=== PATIENT | male | born 1950 | race Caucasian/White ===

== ENCOUNTER → 2016-08-04 | Outpatient (CLI) | payer MEDICARE, OTHER ==
[2016-08-04 11:33] LABS: ALT 40 U/L (21-72); AST 20 U/L (17-59); Alkaline Phosphatase 86 U/L (38-126); Anion Gap 11 mmol/L; Blood Urea Nitrogen 15 mg/dL (9-20); Calcium 10.3 mg/dL (8.4-10.2); Carbon Dioxide 32 mmol/L (22-30); Chloride 92 mmol/L (98-107); Cholesterol 157 mg/dL (<200); Glucose 313 mg/dL (74-99); HDL Cholesterol 39 mg/dL (40-60); Non-African American GFR(MDRD) >60 (>60 ml/min/1.73 sqM); Potassium 4.5 mmol/L (3.5-5.1); Sodium 135 mmol/L (137-145); Total Bilirubin 1.1 mg/dL (0.2-1.3); Total Protein 7.4 g/dL (6.3-8.2); Triglycerides 259 mg/dL (<150)
[2016-08-04 12:17] LABS: Hemoglobin A1C 10.1 % (4.2-6.1)
== END | disposition home or self-care (01) ==
LOC: LABWHC1 10:49
PROVIDERS: ATTEND Internal Medicine Endocrinology, Diabetes & Metabolism
DX: E11.65 Type 2 diabetes mellitus with hyperglycemia (principal)
CPT/HCPCS: 36415; 80053; 80061; 82043; 83036

== ENCOUNTER → 2016-11-23 | Outpatient (CLI) | payer MEDICARE, OTHER ==
[2016-11-23 18:34] LABS: Blood Urea Nitrogen 16 mg/dL (9-20); Non-African American GFR(MDRD) 52 (>60 ml/min/1.73 sqM)
--- NOTE | 2016-11-24 07:51 | CT ---
EXAMINATION TYPE: CT abdomen pelvis w con DATE OF EXAM: 11/23/2016 COMPARISON: 06/29/2014 INDICATION: Vomiting abdominal pain nausea DLP: 1034.67 mGycm, initial scan. 572.71 on delayed images. Automated exposure control for dose reduc tion was used. CONTRAST: 80 mL of Visipaque 320. Study performed TECHNIQUE: Axial images were obtained from above the diaphragm to the pubic rami in the axial plane a t 5 mm thick sections. Reconstructed images are reviewed on the computer in the coronal plane. FINDINGS: Limited CT sections are obtained the lung bases. The lung bases are clear. CT ABDOMEN: Liver: Liver is mildly diminished density in relation to the spleen compatible with mild fatty infilt ration liver. Small cyst may be present in the posterior right lobe liver. This is too small to relia nicole classify as a simple cyst. This is present previously. Spleen: Normal Pancreas: Normal Adrenal glands: The adrenal glands are normal. Gallbladder: Surgical clips are present from prior cholecystectomy. Kidneys: No masses are evident. No hydronephrosis is present. No cysts are present. Delayed images were obtained through the kidneys, which remain unremarkable. Aorta: Vascular calcification is within the aorta. Inferior vena cava: Normal. CT PELVIS: Loops of bowel within the abdomen and pelvis are normal. There are loops of bowel which are incom pletely distended or lack oral contrast limiting their evaluation. Scattered diverticuli within the s igmoid colon. Appendix: The appendix appears surgically absent. Urinary bladder: Normal. Genitourinary structures: Prostate is prominent. Osseous structures: No suspicious lytic or sclerotic lesions. Facet changes are within the lower lumb ar spine. IMPRESSIONS: 1. Mild fatty infiltration liver. 2. Diverticulosis without acute diverticulitis.
== END | disposition home or self-care (01) ==
LOC: RADCTMAIN 17:52
PROVIDERS: ATTEND Family Medicine
DX: K57.30 Diverticulosis of large intestine without perforation or abscess without bleeding (principal); K76.0 Fatty (change of) liver, not elsewhere classified; R10.13 Epigastric pain
CPT/HCPCS: 82565; 84520; 74177; 36415; Q9967

== ENCOUNTER 2017-03-08 12:30 | Emergency (ER) | payer MEDICARE, OTHER ==
[2017-03-08 12:45] VITALS: RESP 18
[2017-03-08 13:12] LABS: Glucose,Whole Blood 386 mg/dL (75-99)
[2017-03-08] MEDS ORDERED: ASPIRIN 81 MG PO STA (13:51)
[2017-03-08] MEDS ORDERED: NITROGLYCERIN SL TABS 0.4 MG TAB SUBLINGUAL STA (13:51)
[2017-03-08 14:23] LABS: Basophils # (A) 0.1 k/uL (0-0.2); Basophils % (A) 2 %; CH 31.1; CHCM 35.2; Eosinophils # (A) 0.2 k/uL (0-0.7); Eosinophils % (A) 4 %; HCT 51.3 % (39.0-53.0); HDW 3.16; HGB 17.3 gm/dL (13.0-17.5); Luc # (Auto) 0.14; Luc % (Auto) 3; Lymphocytes % (A) 21 %; MCH 30.1 pg (25.0-35.0); MCHC 33.8 g/dL (31.0-37.0); MCV 89.1 fL (80.0-100.0); Mean Platelet Volume 7.9; Monocytes # (A) 0.3 k/uL (0-1.0); Monocytes % (A) 7 %; Neutrophils % (A) 63 %; RBC 5.76 m/uL (4.30-5.90); WBC 4.8 k/uL (3.8-10.6); WBC (Perox) 4.46
[2017-03-08 14:32] LABS: ALT 46 U/L (21-72); AST 34 U/L (17-59); Alkaline Phosphatase 93 U/L (38-126); Amylase 37 U/L (30-110); Anion Gap 12 mmol/L; Blood Urea Nitrogen 24 mg/dL (9-20); Calcium 10.4 mg/dL (8.4-10.2); Carbon Dioxide 26 mmol/L (22-30); Chloride 98 mmol/L (98-107); Glucose 283 mg/dL (74-99); Magnesium 2.1 mg/dL (1.6-2.3); Non-African American GFR(MDRD) 60 (>60 ml/min/1.73 sqM); Potassium 4.1 mmol/L (3.5-5.1); Sodium 136 mmol/L (137-145); Total Bilirubin 0.5 mg/dL (0.2-1.3); Total Protein 7.4 g/dL (6.3-8.2)
[2017-03-08 14:37] LABS: INR 1.1 (<1.2); Partial Thromboplastin Time 24.3 sec (22.0-30.0); Prothrombin Time 10.8 sec (9.0-12.0)
--- NOTE | 2017-03-08 14:38 | ED ---
General Adult HPI <Dillon Ferreira - Last Filed: 03/08/17 15:30> - General Source: patient, RN notes reviewed Mode of arrival: ambulatory Limitations: no limitations <Anton Engle - Last Filed: 03/08/17 15:34> - General Chief complaint: Shortness of Breath Stated complaint: Chest Pain, SOB, poss reaction from medication Time Seen by Provider: 03/08/17 13:39 - History of Present Illness Initial comments: Patient 66-year-old male who presents emergency room today with multiple plans. He does with that he's been having some discomfort in his chest on and off over the last week. He does admit to some exertional dyspnea yesterday when he was on walking through the [place]. States had some soreness to his legs today and some pain in his arms bilaterally. He does admit that this pain since coming go. He also admits that his blood sugars have been elevated. Patient does have a history of cardiac disease with 4 stents placed in the past. Currently seeing a gas plant technician out of [facility]. is scheduled for a stress test in 4 days. Patient states that he was concerned about all the symptoms came here to the emergency room today. Patient denies any pain or shortness breath at this time. Patient denies any recent fever, chills, back pain, abdominal pain, nausea or vomiting, numbness or tingling, dysuria or hematuria, constipation or diarrhea, headaches or visual changes, or any other complaints. (Anton Engle) - Related Data Home Medications Medication Instructions Recorded Confirmed ALPRAZolam [ALPRAZolam XR] 2 - 2.25 mg PO DAILY PRN 06/29/14 03/08/17 Aspirin EC [Ecotrin] 81 mg PO DAILY 06/29/14 03/08/17 Ezetimibe [Zetia] 10 mg PO DAILY 06/29/14 03/08/17 Fenofibric Acid (Choline) 135 mg PO DAILY 06/29/14 03/08/17 [Fenofibric Acid] Loratadine [Claritin] 10 mg PO DAILY 06/29/14 03/08/17 Pantoprazole Sodium 40 mg PO DAILY 06/29/14 03/08/17 valACYclovir HCL [Valtrex] 500 mg PO DAILY 06/29/14 03/08/17 HYDROcodone/APAP 10-325MG [[place] 1 tab PO Q6H PRN 02/08/15 03/08/17 10] Cholecalciferol [Vitamin D3] 1,000 unit PO DAILY 03/08/17 03/08/17 Doxazosin Mesylate [Cardura] 4 mg PO DAILY 03/08/17 03/08/17 Dulaglutide [Trulicity] 1.5 mg SQ Q7D 03/08/17 03/08/17 Empagliflozin [Jardiance] 25 mg PO DAILY 03/08/17 03/08/17 Pioglitazone [Actos] 15 mg PO DAILY 03/08/17 03/08/17 Pravastatin Sodium [Pravachol] 80 mg PO HS 03/08/17 03/08/17 Sildenafil Citrate [Viagra] 100 mg PO ONCE PRN 03/08/17 03/08/17 aMILoride-HCTZ 5-50 mg [Moduretic 1 tab PO DAILY 03/08/17 03/08/17 5-50] Allergies Allergy/AdvReac Type Severity Reaction Status Date / Time atorvastatin calcium Allergy Rash/Hives Verified 03/08/17 14:25 [From Lipitor] furosemide [From Lasix] Allergy Rash/Hives Verified 03/08/17 14:25 ibuprofen Allergy Rash/Hives Verified 03/08/17 14:25 metoprolol succinate Allergy Unknown Verified 03/08/17 14:25 [From Toprol XL] niacin Allergy Unknown Verified 03/08/17 14:25 Sulfa (Sulfonamide Allergy Rash/Hives Verified 03/08/17 14:25 Antibiotics) glyburide AdvReac Nausea & Verified 03/08/17 14:25 Vomiting Review of Systems ROS Other: All systems not noted in ROS Statement are negative. <Dillon Ferreira - Last Filed: 03/08/17 15:30> ROS Other: All systems not noted in ROS Statement are negative. <Anton Engle - Last Filed: 03/08/17 15:34> ROS Statement: Those systems with pertinent positive or pertinent negative responses have been documented in the HPI. Past Medical History Past Medical History: CVA/TIA, Diabetes Mellitus, Hyperlipidemia, Hypertension, Myocardial Infarction ([place]) History of Any Multi-Drug Resistant Organisms: None Reported Past Surgical History: Appendectomy, Cholecystectomy, Heart Catheterization With Stent, Orthopedic Surgery Additional Past Surgical History / Comment(s): finger, paritial right knee Past Psychological History: No Psychological Hx Reported Smoking Status: Former smoker Past Alcohol Use History: None Reported Past Drug Use History: None Reported <Yosvany Engleony - Last Filed: 03/08/17 15:34> General Exam <Dillon Ferreira - Last Filed: 03/08/17 15:30> Limitations: no limitations <Anton Engle - Last Filed: 03/08/17 15:34> - General Exam Comments Initial Comments: General: The patient is awake and alert, in no distress, and does not appear acutely ill. Eye: Pupils are equal, round and reactive to light, extra-ocular movements are intact. No nystagmus. There is normal conjunctiva bilaterally. No signs of icterus. Ears, nose, mouth and throat: There are moist mucous membranes and no oral lesions. Neck: The neck is supple, there is no tenderness or JVD. Cardiovascular: There is a regular rate and rhythm. No murmur, rub or gallop is appreciated. Respiratory: Lungs are clear to auscultation, respirations are non-labored, breath sounds are equal. No wheezes, stridor, rales, or rhonchi. Gastrointestinal: Soft, non-distended, non-tender abdomen without masses or organomegaly noted. There is no rebound or guarding present. No CVA tenderness. Bowel sounds are unremarkable. Musculoskeletal: Normal ROM, no tenderness. Strength 5/5. Sensation intact. Pulses equal bilaterally 2+. Neurological: A&O x 3. CN II-XII intact, There are no obvious motor or sensory deficits. Coordination appears grossly intact. Speech is normal. Skin: Skin is warm and dry and no rashes or lesions are noted. Psychiatric: Cooperative, appropriate mood & affect, normal judgment. (Anton Engle) Course <Dillon Ferreira - Last Filed: 03/08/17 15:30> <Anton Engle - Last Filed: 03/08/17 15:34> Vital Signs 03/08/17 03/08/17 12:41 14:13 Temperature 97.8 F Pulse Rate 102 H 92 Respiratory 18 18 Rate Blood Pressure 158/83 140/77 O2 Sat by Pulse 94 L 95 Oximetry - Reevaluation(s) Reevaluation #1: 03/08/17 15:30 PA supervision: I did personally do a [id number] evaluation of this patient and did discuss the findings with him and his family members or present. Patient does have evidence of unstable angina. Patient will be admitted and has agreed to admission for evaluation. Patient currently is asymptomatic her lungs are clear. Patient will be admitted (Dillon Ferreira) EKG Findings - EKG Comments: EKG Findings:: EKG performed at 1301: Shows normal sinus rhythm with left axis deviation at 83 beats per minute. DE interval 168. QRS 106. QT/QTC 368/432. No acute ST changes. <Anton Engle - Last Filed: 03/08/17 15:34> Medical Decision Making - Lab Data Result diagrams: 03/08/17 14:02 03/08/17 14:02 <Dillon Ferreira - Last Filed: 03/08/17 15:30> - Lab Data Result diagrams: 03/08/17 14:02 03/08/17 14:02 <Anton Engle - Last Filed: 03/08/17 15:34> - Lab Data Lab Results 03/08/17 03/08/17 03/08/17 Range/Units 13:02 14:02 14:02 WBC (3.8-10.6) k/uL RBC (4.30-5.90) m/uL Hgb (13.0-17.5) gm/dL Hct (39.0-53.0) % MCV (80.0-100.0) fL MCH (25.0-35.0) pg MCHC (31.0-37.0) g/dL RDW (11.5-15.5) % Plt Count (150-450) k/uL Neutrophils % % Lymphocytes % % Monocytes % % Eosinophils % % Basophils % % Neutrophils # (1.3-7.7) k/uL Lymphocytes # (1.0-4.8) k/uL Monocytes # (0-1.0) k/uL Eosinophils # (0-0.7) k/uL Basophils # (0-0.2) k/uL PT (9.0-12.0) sec INR (<1.2) APTT (22.0-30.0) sec Sodium 136 L (137-145) mmol/L Potassium 4.1 (3.5-5.1) mmol/L Chloride 98 (98-107) mmol/L Carbon Dioxide 26 (22-30) mmol/L Anion Gap 12 mmol/L BUN 24 H (9-20) mg/dL Creatinine 1.22 (0.66-1.25) mg/dL Est GFR (MDRD) Af Amer >60 (>60 ml/min/1.73 sqM) Est GFR (MDRD) Non-Af 60 (>60 ml/min/1.73 sqM) Glucose 283 H (74-99) mg/dL POC Glucose (mg/dL) 386 H (75-99) mg/dL POC Glu Program Strategist ID [place] Calcium 10.4 H (8.4-10.2) mg/dL Magnesium 2.1 (1.6-2.3) mg/dL Total Bilirubin 0.5 (0.2-1.3) mg/dL AST 34 (17-59) U/L ALT 46 (21-72) U/L Alkaline Phosphatase 93 (38-126) U/L Total Creatine Kinase 163 (55-170) U/L CK-MB (CK-2) 3.9 H* (0.0-2.4) ng/mL CK-MB (CK-2) Rel Index 2.4 Troponin I 0.013 (0.000-0.034) ng/mL Total Protein 7.4 (6.3-8.2) g/dL Albumin 4.7 (3.5-5.0) g/dL Amylase 37 (30-110) U/L Lipase 244 (23-300) U/L Acetone, Qual (Negative) 03/08/17 03/08/17 03/08/17 Range/Units 14:02 14:02 14:02 WBC 4.8 (3.8-10.6) k/uL RBC 5.76 (4.30-5.90) m/uL Hgb 17.3 (13.0-17.5) gm/dL Hct 51.3 (39.0-53.0) % MCV 89.1 (80.0-100.0) fL MCH 30.1 (25.0-35.0) pg MCHC 33.8 (31.0-37.0) g/dL RDW 13.0 (11.5-15.5) % Plt Count 180 (150-450) k/uL Neutrophils % 63 % Lymphocytes % 21 % Monocytes % 7 % Eosinophils % 4 % Basophils % 2 % Neutrophils # 3.0 (1.3-7.7) k/uL Lymphocytes # 1.0 (1.0-4.8) k/uL Monocytes # 0.3 (0-1.0) k/uL Eosinophils # 0.2 (0-0.7) k/uL Basophils # 0.1 (0-0.2) k/uL PT 10.8 (9.0-12.0) sec INR 1.1 (<1.2) APTT 24.3 (22.0-30.0) sec Sodium (137-145) mmol/L Potassium (3.5-5.1) mmol/L Chloride (98-107) mmol/L Carbon Dioxide (22-30) mmol/L Anion Gap mmol/L BUN (9-20) mg/dL Creatinine (0.66-1.25) mg/dL Est GFR (MDRD) Af Amer (>60 ml/min/1.73 sqM) Est GFR (MDRD) Non-Af (>60 ml/min/1.73 sqM) Glucose (74-99) mg/dL POC Glucose (mg/dL) (75-99) mg/dL POC Glu Program Strategist ID Calcium (8.4-10.2) mg/dL Magnesium (1.6-2.3) mg/dL Total Bilirubin (0.2-1.3) mg/dL AST (17-59) U/L ALT (21-72) U/L Alkaline Phosphatase (38-126) U/L Total Creatine Kinase (55-170) U/L CK-MB (CK-2) (0.0-2.4) ng/mL CK-MB (CK-2) Rel Index Troponin I (0.000-0.034) ng/mL Total Protein (6.3-8.2) g/dL Albumin (3.5-5.0) g/dL Amylase (30-110) U/L Lipase (23-300) U/L Acetone, Qual Negative (Negative) Disposition <Dillon Ferreira - Last Filed: 03/08/17 15:30> Time of Disposition: 15:16 <Anton Engle - Last Filed: 03/08/17 15:34> Clinical Impression: Chest pain Disposition: ADMITTED IP TO THIS [facility] Condition: Stable Referrals: Adam Live III, MD [Primary Care Provider] - 1-2 days
--- NOTE | 2017-03-08 14:54 | XR ---
EXAMINATION TYPE: XR chest 2V DATE OF EXAM: 03/08/2017 COMPARISON: Prior chest x-ray 11/01/2015 and 02/24/2016 HISTORY: Chest pain TECHNIQUE: Frontal and lateral views of the chest are obtained. FINDINGS: There is no focal air space opacity, pleural effusion, or pneumothorax seen. There are ov erlying cardiac leads. Patient is rotated. Hyperinflation may be indicative of COPD. The cardiac silh ouette size is within normal limits. The osseous structures are intact. IMPRESSION: No acute cardiopulmonary process.
[2017-03-08 14:55] LABS: Troponin I 0.013 ng/mL (0.000-0.034)
[2017-03-08 14:58] LABS: Creatine Kinase MB 3.9 ng/mL (0.0-2.4)
[2017-03-08] MEDS ORDERED: HYDROcodone/APAP 10-325MG 1 EACH TAB PO PRN (15:27)
[2017-03-08] MEDS ORDERED: SODIUM CHLORIDE 0.9% 1,000 ML IV ONE (15:34)
[2017-03-08] MEDS ORDERED: HEPARIN SODIUM,PORCINE 5,000 UNIT/ML 1 ML VIAL IV ONE (15:34)
[2017-03-08] MEDS ORDERED: NITROGLYCERIN SL TABS 0.4 MG TAB SUBLINGUAL PRN (15:34)
[2017-03-08] MEDS ORDERED: HEPARIN SODIUM,PORCINE/D5W PMX 25,000 UNIT in DEXTROSE/WATER 1 500ML.BAG IV SCH (15:45)
--- NOTE | 2017-03-08 15:57 | P.HPIM ---
History of Present Illness Patient is a very pleasant 61-year-old man came in with complains of bandlike sharp pain around the upper abdominal area patient has thoracic and lumbar back issues and patient is even being evaluated for back surgery. Patient's pain was about 8 x 10 in severity started when he was walking in the cold weather improved with in few minutes after he vomited himself up, denied any lightheadedness denied any shortness of breath his pain is nonradiating no associated fever chills since pain is nonpruritic in nature patient has history of coronary artery disease had stents in 2001 and 2003 EKG showed some nonspecific ST-T wave changes troponin is negative patient is admitted for overnight evaluation and patient is supposed to get a stress test and cardiology will evaluated the patient and may end up getting a stress test. Tomorrow. Patient is scheduled for outpatient stress test on Sunday. Patient denied any cough runny nose patient's pain is not associated with food Review of Systems REVIEW OF SYSTEMS: CONSTITUTIONAL: No fever, no malaise, no fatigue. HEENT: No recent visual problems or hearing problems. Denied any sore throat. CARDIOVASCULAR: No chest pain, orthopnea, PND, no palpitations, no syncope. PULMONARY: No shortness of breath, no cough, no hemoptysis. GASTROINTESTINAL: No diarrhea, no nausea, no vomiting, no abdominal pain. Normoactive bowel sounds. NEUROLOGICAL: No headaches, no weakness, no numbness. HEMATOLOGICAL: Denies any bleeding or petechiae. GENITOURINARY: Denies any burning micturition, frequency, or urgency. MUSCULOSKELETAL/RHEUMATOLOGICAL: As mentioned in HPI ENDOCRINE: Denies any polyuria or polydipsia. The rest of the 14-point review of systems is negative. Past Medical History Past Medical History: CVA/TIA, Diabetes Mellitus, Hyperlipidemia, Hypertension, Myocardial Infarction ([place]) History of Any Multi-Drug Resistant Organisms: None Reported Past Surgical History: Appendectomy, Cholecystectomy, Heart Catheterization With Stent, Orthopedic Surgery Additional Past Surgical History / Comment(s): finger, paritial right knee Past Psychological History: No Psychological Hx Reported Smoking Status: Former smoker Past Alcohol Use History: None Reported Past Drug Use History: None Reported Medications and Allergies Home Medications Medication Instructions Recorded Confirmed Type ALPRAZolam [ALPRAZolam XR] 2 - 2.25 mg PO DAILY PRN 06/29/14 03/08/17 History Aspirin EC [Ecotrin] 81 mg PO DAILY 06/29/14 03/08/17 History Ezetimibe [Zetia] 10 mg PO DAILY 06/29/14 03/08/17 History Fenofibric Acid (Choline) 135 mg PO DAILY 06/29/14 03/08/17 History [Fenofibric Acid] Loratadine [Claritin] 10 mg PO DAILY 06/29/14 03/08/17 History Pantoprazole Sodium 40 mg PO DAILY 06/29/14 03/08/17 History valACYclovir HCL [Valtrex] 500 mg PO DAILY 06/29/14 03/08/17 History HYDROcodone/APAP 10-325MG [[place] 1 tab PO Q6H PRN 02/08/15 03/08/17 History 10] Cholecalciferol [Vitamin D3] 1,000 unit PO DAILY 03/08/17 03/08/17 History Doxazosin Mesylate [Cardura] 4 mg PO DAILY 03/08/17 03/08/17 History Dulaglutide [Trulicity] 1.5 mg SQ Q7D 03/08/17 03/08/17 History Empagliflozin [Jardiance] 25 mg PO DAILY 03/08/17 03/08/17 History Pioglitazone [Actos] 15 mg PO DAILY 03/08/17 03/08/17 History Pravastatin Sodium [Pravachol] 80 mg PO HS 03/08/17 03/08/17 History Sildenafil Citrate [Viagra] 100 mg PO ONCE PRN 03/08/17 03/08/17 History aMILoride-HCTZ 5-50 mg [Moduretic 1 tab PO DAILY 03/08/17 03/08/17 History 5-50] Allergies Allergy/AdvReac Type Severity Reaction Status Date / Time atorvastatin calcium Allergy Rash/Hives Verified 03/08/17 14:25 [From Lipitor] furosemide [From Lasix] Allergy Rash/Hives Verified 03/08/17 14:25 ibuprofen Allergy Rash/Hives Verified 03/08/17 14:25 metoprolol succinate Allergy Unknown Verified 03/08/17 14:25 [From Toprol XL] niacin Allergy Unknown Verified 03/08/17 14:25 Sulfa (Sulfonamide Allergy Rash/Hives Verified 03/08/17 14:25 Antibiotics) glyburide AdvReac Nausea & Verified 03/08/17 14:25 Vomiting Physical Exam Vitals: Vital Signs Temp Pulse Resp BP Pulse Ox 03/08/17 14:13 92 18 140/77 95 03/08/17 12:41 97.8 F 102 H 18 158/83 94 L Intake and Output 03/08/17 03/08/17 03/08/17 06:59 14:59 22:59 Other: Weight 90.718 kg Patient Weight 03/09/17 06:59 Weight 90.718 kg #1 abdominal pain: [place] skeletal nature from thoracolumbar chronic back disease. Improved symptoms at this point of time. Patient is admitted to rule out acute coronary syndromes. #2 coronary artery disease #3 type 2 diabetes mellitus uncontrolled blood sugars patient is on 3 diabetic medications and the his primary care physician is in the process of titrating his medication because of which will continue same medications will not change any of these and will let PCP manage his diabetes #4 hypertension next and #5 hyperlipidemia #6 CVA TIA in the past next For above-mentioned chronic medical problems patient will be continued on appropriate home medications. Results CBC & Chem 7: 03/08/17 14:02 03/08/17 14:02 Labs: Abnormal Lab Results - Last 24 Hours (Table) 03/08/17 03/08/17 03/08/17 Range/Units 13:02 14:02 14:02 Sodium 136 L (137-145) mmol/L BUN 24 H (9-20) mg/dL Glucose 283 H (74-99) mg/dL POC Glucose (mg/dL) 386 H (75-99) mg/dL Calcium 10.4 H (8.4-10.2) mg/dL CK-MB (CK-2) 3.9 H* (0.0-2.4) ng/mL
--- NOTE | 2017-03-08 16:52 | P.DS ---
Providers Date of admission: 03/08/17 15:30 Attending physician: Jayashree Rodrigez Consults: 03/08/17 15:34 Consult Physician Stat Consulting Provider: [facility] Consult Reason/Comments: chest pain Do you want consulting provider notified?: Yes Primary care physician: Adam Loredo [facility] Course: Patient wanted to be discharged patient was still in ER had discussed with the ER physician mental health assistant. Since patient's pain is mostly related to his thoracic thoracolumbar back and musculoskeletal in nature, patient probably can be discharged rather leaving AMA from ER and can get the stress test as an outpatient on Sunday. Same thing was discussed with ER physician mental health assistant. Patient Condition at Discharge: Stable Plan - Discharge Summary New Discharge Prescriptions: No Action valACYclovir HCL [Valtrex] 500 mg PO DAILY Loratadine [Claritin] 10 mg PO DAILY ALPRAZolam [ALPRAZolam XR] 2 - 2.25 mg PO DAILY PRN PRN Reason: Anxiety Pantoprazole Sodium 40 mg PO DAILY Fenofibric Acid (Choline) [Fenofibric Acid] 135 mg PO DAILY Ezetimibe [Zetia] 10 mg PO DAILY Aspirin EC [Ecotrin] 81 mg PO DAILY HYDROcodone/APAP 10-325MG [[place] 10] 1 tab PO Q6H PRN PRN Reason: Pain aMILoride-HCTZ 5-50 mg [Moduretic 5-50] 1 tab PO DAILY Sildenafil Citrate [Viagra] 100 mg PO ONCE PRN PRN Reason: E.D. Pravastatin Sodium [Pravachol] 80 mg PO HS Pioglitazone [Actos] 15 mg PO DAILY Empagliflozin [Jardiance] 25 mg PO DAILY Dulaglutide [Trulicity] 1.5 mg SQ Q7D Doxazosin Mesylate [Cardura] 4 mg PO DAILY Cholecalciferol [Vitamin D3] 1,000 unit PO DAILY Discharge Medication List ALPRAZolam [ALPRAZolam XR] 2 - 2.25 mg PO DAILY PRN 06/29/14 [History] Aspirin EC [Ecotrin] 81 mg PO DAILY 06/29/14 [History] Ezetimibe [Zetia] 10 mg PO DAILY 06/29/14 [History] Fenofibric Acid (Choline) [Fenofibric Acid] 135 mg PO DAILY 06/29/14 [History] Loratadine [Claritin] 10 mg PO DAILY 06/29/14 [History] Pantoprazole Sodium 40 mg PO DAILY 06/29/14 [History] valACYclovir HCL [Valtrex] 500 mg PO DAILY 06/29/14 [History] HYDROcodone/APAP 10-325MG [[place] 10] 1 tab PO Q6H PRN 02/08/15 [History] Cholecalciferol [Vitamin D3] 1,000 unit PO DAILY 03/08/17 [History] Doxazosin Mesylate [Cardura] 4 mg PO DAILY 03/08/17 [History] Dulaglutide [Trulicity] 1.5 mg SQ Q7D 03/08/17 [History] Empagliflozin [Jardiance] 25 mg PO DAILY 03/08/17 [History] Pioglitazone [Actos] 15 mg PO DAILY 03/08/17 [History] Pravastatin Sodium [Pravachol] 80 mg PO HS 03/08/17 [History] Sildenafil Citrate [Viagra] 100 mg PO ONCE PRN 03/08/17 [History] aMILoride-HCTZ 5-50 mg [Moduretic 5-50] 1 tab PO DAILY 03/08/17 [History] Follow up Appointment(s)/Referral(s): Adam Live III, MD [Primary Care Provider] - 1-2 days
[2017-03-08 17:13] VITALS: BP 134/76; PULSE 91; TEMP 97.2
[2017-03-08] MEDS ORDERED: PRAVASTATIN SODIUM 80 MG TAB PO SCH (21:00)
[2017-03-09] MEDS ORDERED: PANTOPRAZOLE 40 MG TABLET PO SCH (07:30)
[2017-03-09] MEDS ORDERED: valACYclovir 500 MG TAB PO SCH (09:00)
[2017-03-09] MEDS ORDERED: JARDIANCE 25MG PO SCH (09:00)
[2017-03-09] MEDS ORDERED: PIOGLITAZONE 15 MG TAB PO SCH (09:00)
[2017-03-09] MEDS ORDERED: LORATADINE 10 MG TAB PO SCH (09:00)
[2017-03-09] MEDS ORDERED: EZETIMIBE 10 MG TAB PO SCH (09:00)
[2017-03-09] MEDS ORDERED: FENOFIBRATE 160 MG TAB PO SCH (09:00)
[2017-03-09] MEDS ORDERED: ASPIRIN 325 MG TAB PO SCH (09:00)
[2017-03-09] MEDS ORDERED: DOXAZOSIN 4 MG TAB PO SCH (09:00)
== END 2017-03-08 17:13 | disposition other institution (70) ==
LOC: EC 12:30 → UNDOADMOB 15:30 → 6SEL 15:30 → EC 17:13
DX: R07.9 Chest pain, unspecified (principal); E78.5 Hyperlipidemia, unspecified; I10 Essential (primary) hypertension; I25.2 Old myocardial infarction; E11.9 Type 2 diabetes mellitus without complications; Z86.73 Personal history of transient ischemic attack (TIA), and cerebral infarction without residual deficits; Z95.5 Presence of coronary angioplasty implant and graft; Z88.2 Allergy status to sulfonamides; Z88.6 Allergy status to analgesic agent; Z88.8 Allergy status to other drugs, medicaments and biological substances; Z79.82 Long term (current) use of aspirin; Z79.84 Long term (current) use of oral hypoglycemic drugs; Z79.899 Other long term (current) drug therapy; Z87.891 Personal history of nicotine dependence
CPT/HCPCS: 36415; 71020; 80053; 82009; 82150; 82550; 82553; 83690; 83735; 84484; 85025; 85610; 85730; 93005; 99285

== ENCOUNTER 2017-07-09 19:14 | Emergency (ER) | payer MEDICARE, OTHER ==
[2017-07-09 19:23] VITALS: TEMP 97.1
[2017-07-09 20:05] LABS: Anion Gap 11 mmol/L; Blood Urea Nitrogen 20 mg/dL (9-20); Calcium 9.9 mg/dL (8.4-10.2); Carbon Dioxide 27 mmol/L (22-30); Chloride 100 mmol/L (98-107); Glucose 167 mg/dL (74-99); Potassium 3.9 mmol/L (3.5-5.1); Sodium 138 mmol/L (137-145)
[2017-07-09 20:07] LABS: Basophils # (A) 0.1 k/uL (0-0.2); Basophils % (A) 2 %; Eosinophils # (A) 0.2 k/uL (0-0.7); Eosinophils % (A) 4 %; HCT 52.6 % (39.0-53.0); HGB 18.3 gm/dL (13.0-17.5); Lymphocytes # (A) 0.8 k/uL (1.0-4.8); Lymphocytes % (A) 24 %; MCHC 34.8 g/dL (31.0-37.0); MCV 86.3 fL (80.0-100.0); Mean Platelet Volume 7.9; Monocytes # (A) 0.4 k/uL (0-1.0); Monocytes % (A) 13 %; Neutrophils # (A) 1.8 k/uL (1.3-7.7); Neutrophils % (A) 53 %; Platelet Count 159 k/uL (150-450); RBC 6.09 m/uL (4.30-5.90); RDW 13.4 % (11.5-15.5); WBC 3.5 k/uL (3.8-10.6)
--- NOTE | 2017-07-09 20:26 | ED ---
General Adult HPI - General Chief complaint: Upper Respiratory Infection Stated complaint: Fever, Cough Time Seen by Provider: 07/09/17 20:13 Source: patient, family, RN notes reviewed Mode of arrival: ambulatory Limitations: no limitations - History of Present Illness Initial comments: Patient is a pleasant [age]-year-old male presenting to the emergency department with complaints of chest discomfort. Symptoms have been present for 5 days. Patient states he is unable to get in to his doctor for at least a week and they recommended he come to the emergency department if he felt necessary. Patient has had cough that is nonproductive. Patient has had yellow to brown sputum production. Patient has discomfort with cough only, otherwise no chest discomfort. Patient does have sinus congestion and sinus drainage. Patient feels that he did have a fever of 100 yesterday. No dyspnea. No leg pain or leg swelling. - Related Data Home Medications Medication Instructions Recorded Confirmed Aspirin EC [Ecotrin] 81 mg PO DAILY 06/29/14 07/09/17 Ezetimibe [Zetia] 10 mg PO DAILY 06/29/14 07/09/17 Fenofibric Acid (Choline) 135 mg PO DAILY 06/29/14 07/09/17 [Fenofibric Acid] Loratadine [Claritin] 10 mg PO DAILY 06/29/14 07/09/17 Pantoprazole Sodium 40 mg PO DAILY 06/29/14 07/09/17 valACYclovir HCL [Valtrex] 500 mg PO DAILY 06/29/14 07/09/17 HYDROcodone/APAP 10-325MG [[place] 1 tab PO QID PRN 02/08/15 07/09/17 10] Cholecalciferol [Vitamin D3] 1,000 unit PO DAILY 03/08/17 07/09/17 Doxazosin Mesylate [Cardura] 4 mg PO DAILY 03/08/17 07/09/17 Empagliflozin [Jardiance] 25 mg PO DAILY 03/08/17 07/09/17 Pioglitazone [Actos] 15 mg PO DAILY 03/08/17 07/09/17 Pravastatin Sodium [Pravachol] 80 mg PO HS 03/08/17 07/09/17 Sildenafil Citrate [Viagra] 100 mg PO ONCE PRN 03/08/17 07/09/17 aMILoride-HCTZ 5-50 mg [Moduretic 1 tab PO DAILY 03/08/17 07/09/17 5-50] Insulin Degludec [Tresiba 15 unit SQ DAILY 03/26/17 07/09/17 Flextouch U-100] ALPRAZolam [Xanax] 2.5 mg PO DAILY PRN 07/09/17 07/09/17 Dulaglutide [Trulicity] 0.75 mg SQ WE 07/09/17 07/09/17 Previous Rx's Medication Instructions Recorded Albuterol Inhaler [Ventolin Hfa 2 puff INHALATION Q4HR PRN #1 07/09/17 Inhaler] inhaler Azithromycin [Zithromax Z-pack] 250 mg PO DIRECTED #6 tab 07/09/17 Allergies Allergy/AdvReac Type Severity Reaction Status Date / Time atorvastatin calcium Allergy Rash/Hives Verified 07/09/17 20:27 [From Lipitor] furosemide [From Lasix] Allergy Rash/Hives Verified 07/09/17 20:27 heparin Allergy Unknown Verified 07/09/17 20:27 ibuprofen Allergy Rash/Hives Verified 07/09/17 20:27 metoprolol succinate Allergy Unknown Verified 07/09/17 20:27 [From Toprol XL] niacin Allergy Unknown Verified 07/09/17 20:27 Sulfa (Sulfonamide Allergy Rash/Hives Verified 07/09/17 20:27 Antibiotics) glyburide AdvReac Nausea & Verified 07/09/17 20:27 Vomiting Review of Systems ROS Statement: Those systems with pertinent positive or pertinent negative responses have been documented in the HPI. ROS Other: All systems not noted in ROS Statement are negative. Constitutional: Reports: fever Eyes: Denies: eye pain ENT: Denies: ear pain Respiratory: Reports: cough. Denies: dyspnea Cardiovascular: Denies: palpitations Endocrine: Denies: fatigue Gastrointestinal: Denies: abdominal pain Genitourinary: Denies: dysuria Musculoskeletal: Denies: back pain Skin: Denies: rash Neurological: Denies: weakness Past Medical History Past Medical History: CVA/TIA, Diabetes Mellitus, Hyperlipidemia, Hypertension, Myocardial Infarction ([place]) Additional Past Medical History / Comment(s): chronic left leg pain History of Any Multi-Drug Resistant Organisms: None Reported Past Surgical History: Appendectomy, Back Surgery, Cholecystectomy, Heart Catheterization With Stent, Orthopedic Surgery Additional Past Surgical History / Comment(s): finger, paritial right knee; 4 cardiac stents Past Psychological History: No Psychological Hx Reported Smoking Status: Former smoker Past Alcohol Use History: None Reported Past Drug Use History: None Reported General Exam Limitations: no limitations General appearance: alert, in no apparent distress Head exam: Present: atraumatic Eye exam: Present: normal appearance, PERRL ENT exam: Present: normal oropharynx, TM's normal bilaterally, other ( Tenderness over the frontal, ethmoid, and maxillary sinuses.) Neck exam: Present: normal inspection Respiratory exam: Present: normal lung sounds bilaterally Cardiovascular Exam: Present: regular rate, normal rhythm Expanded Peripheral pulses: 2+: Radial (R), Radial (L), Dorsalis Pedis (R), Dorsalis Pedis (L) GI/Abdominal exam: Present: soft. Absent: tenderness Extremities exam: Present: normal inspection. Absent: pedal edema, calf tenderness Neurological exam: Present: alert Psychiatric exam: Present: normal affect, normal mood Skin exam: Present: normal color Course Vital Signs 07/09/17 07/09/17 19:19 21:13 Temperature 97.1 F L Pulse Rate 86 84 Respiratory 17 18 Rate Blood Pressure 156/84 145/71 O2 Sat by Pulse 97 97 Oximetry EKG Findings - EKG Comments: EKG Findings:: Normal sinus rhythm 79. PA 170. QRS 104. QT 382. QTC 438. Left axis. Inferior Q waves. No acute ST change. Medical Decision Making - Medical Decision Making Patient reevaluated and resting comfortably in bed. Patient still denies any chest discomfort. Patient states he does not feel cardiac testing is necessary. Patient states he just saw his heart doctor and had stress test that was reported as normal less than 1 month ago. Patient does not have symptoms consistent with typical cardiac disease. Patient is happy to receive antibiotics and discharge. - Lab Data Result diagrams: 07/09/17 19:36 07/09/17 19:36 Lab Results 07/09/17 07/09/17 07/09/17 Range/Units 19:36 19:36 19:43 WBC 3.5 L (3.8-10.6) k/uL RBC 6.09 H (4.30-5.90) m/uL Hgb 18.3 H (13.0-17.5) gm/dL Hct 52.6 (39.0-53.0) % MCV 86.3 (80.0-100.0) fL MCH 30.0 (25.0-35.0) pg MCHC 34.8 (31.0-37.0) g/dL RDW 13.4 (11.5-15.5) % Plt Count 159 (150-450) k/uL Neutrophils % 53 % Lymphocytes % 24 % Monocytes % 13 % Eosinophils % 4 % Basophils % 2 % Neutrophils # 1.8 (1.3-7.7) k/uL Lymphocytes # 0.8 L (1.0-4.8) k/uL Monocytes # 0.4 (0-1.0) k/uL Eosinophils # 0.2 (0-0.7) k/uL Basophils # 0.1 (0-0.2) k/uL Sodium 138 (137-145) mmol/L Potassium 3.9 (3.5-5.1) mmol/L Chloride 100 (98-107) mmol/L Carbon Dioxide 27 (22-30) mmol/L Anion Gap 11 mmol/L BUN 20 (9-20) mg/dL Creatinine 0.99 (0.66-1.25) mg/dL Est GFR (CKD-EPI)AfAm >90 (>60 ml/min/1.73 sqM) Est GFR (CKD-EPI)NonAf 80 (>60 ml/min/1.73 sqM) Glucose 167 H (74-99) mg/dL Calcium 9.9 (8.4-10.2) mg/dL Influenza Type A RNA Not Detected (Not Detectd) Influenza Type B (PCR) Not Detected (Not Detectd) - Radiology Data Radiology results: image reviewed (Chest x-ray shows no acute process.) Disposition Clinical Impression: Sinusitis, Bronchitis Disposition: HOME SELF-CARE Condition: Stable Instructions: Sinusitis (ED), Acute Bronchitis (ED) Additional Instructions: Please follow-up with primary care physician in the next day or 2 for recheck. Return for difficulty in breathing, chest pain, fevers, worsening or changing symptoms or other concerns. Prescriptions: Albuterol Inhaler [Ventolin Hfa Inhaler] 2 puff INHALATION Q4HR PRN #1 inhaler PRN Reason: Dyspnea Azithromycin [Zithromax Z-pack] 250 mg PO DIRECTED #6 tab Referrals: Adam Live III, MD [Primary Care Provider] - 1-2 days Time of Disposition: 21:30
--- NOTE | 2017-07-09 20:57 | XR ---
EXAMINATION: XR chest 2V DATE AND TIME: 07/09/2017 8:46 PM ORDERING PROVIDER: Jonathan Luther DO CLINICAL INDICATION: cough TECHNIQUE: PA and lateral COMPARISON: 03/08/2017 DESCRIPTION: The overlying soft tissues are prominent. Given this factor, The lungs appear to be clear. The pleural spaces are negative. The cardiac silhouette is not enlarged, and the mediastinal and pleural silhouettes are unremarkable. The skeletal structures are intact without focal findings. IMPRESSION: NO DEFINITE ACUTE PROCESS.
[2017-07-09 21:14] VITALS: BP 145/71; PULSE 84; RESP 18
[2017-07-09] MEDS ORDERED: AZITHROMYCIN 500 MG TAB PO STA (21:28)
== END 2017-07-09 21:41 | disposition home or self-care (01) ==
LOC: EC 19:14
DX: J40 Bronchitis, not specified as acute or chronic (principal); J32.9 Chronic sinusitis, unspecified; E78.5 Hyperlipidemia, unspecified; I10 Essential (primary) hypertension; E11.9 Type 2 diabetes mellitus without complications; G89.29 Other chronic pain; I25.2 Old myocardial infarction; Z87.891 Personal history of nicotine dependence; Z79.4 Long term (current) use of insulin; Z79.82 Long term (current) use of aspirin; Z79.899 Other long term (current) drug therapy; Z88.2 Allergy status to sulfonamides; Z88.6 Allergy status to analgesic agent; Z88.8 Allergy status to other drugs, medicaments and biological substances; Z95.818 Presence of other cardiac implants and grafts
CPT/HCPCS: 36415; 71046; 80048; 85025; 87040; 87502; 93005; 99284

== ENCOUNTER → 2017-07-18 | Outpatient (CLI) | payer MEDICARE, OTHER ==
--- NOTE | 2017-07-18 15:43 | XR ---
EXAMINATION TYPE: XR chest 2V DATE OF EXAM: 07/18/2017 COMPARISON: 07/09/2017 HISTORY: 66-year-old male cough, acute bronchitis TECHNIQUE: Frontal and lateral views FINDINGS: Heart normal size. Aorta within normal limits. Mild interstitial prominence is unchanged. No consolid ation or pleural effusion. IMPRESSION: Chronic changes without acute cardiopulmonary process.
== END | disposition home or self-care (01) ==
LOC: RADXRMAIN 14:08
PROVIDERS: ATTEND Family Medicine
DX: J20.9 Acute bronchitis, unspecified (principal)
CPT/HCPCS: 71046

== ENCOUNTER → 2017-09-07 | Outpatient (CLI) | payer MEDICARE, OTHER ==
--- NOTE | 2017-09-07 13:51 | XR ---
EXAMINATION TYPE: XR shoulder complete RT DATE OF EXAM: 09/07/2017 CLINICAL HISTORY: Right shoulder pain after a fall 3 years ago TECHNIQUE: Three views of the right shoulder are obtained. COMPARISON: None. FINDINGS: There is no acute fracture/dislocation evident in the right shoulder. There is no widening of the acromio clavicular glenohumeral joint spaces. No suspicious osseous lesion. Moderate arthropa thy of the right acromioclavicular joint is seen as marginal osteophytes, capsular hypertrophy and sm all subchondral cysts. The visualized ribs are intact and unremarkable. IMPRESSION: There is no acute fracture or dislocation in the right shoulder. Moderate right acromioc lavicular arthropathy.
== END ==
LOC: RADXRMAIN 11:41
PROVIDERS: ATTEND Physical Medicine & Rehabilitation
DX: M19.011 Primary osteoarthritis, right shoulder (principal)

== ENCOUNTER → 2018-02-18 | Outpatient (CLI) | payer MEDICARE, OTHER ==
[2018-02-19 03:52] LABS: T4, Free (Free Thyroxine) 1.3 ng/dL (0.80-1.80)
== END | disposition home or self-care (01) ==
LOC: LABWHC1 16:27
PROVIDERS: ATTEND Internal Medicine Endocrinology, Diabetes & Metabolism
DX: E11.65 Type 2 diabetes mellitus with hyperglycemia (principal); E78.5 Hyperlipidemia, unspecified; E66.9 Obesity, unspecified; I10 Essential (primary) hypertension; Z71.3 Dietary counseling and surveillance
CPT/HCPCS: 36415; 84439; 84443

== ENCOUNTER 2018-03-28 21:55 | Emergency (ER) | payer MEDICARE, OTHER ==
[2018-03-28 22:01] VITALS: RESP 18
[2018-03-28 22:14] LABS: Glucose,Whole Blood 208 mg/dL (75-99)
[2018-03-28] MEDS ORDERED: SODIUM CHLORIDE 0.9% 500 ML 500 ML IV STA (22:50)
[2018-03-28 23:07] LABS: Basophils # (A) 0.1 k/uL (0-0.2); Basophils % (A) 1 %; Eosinophils # (A) 0.2 k/uL (0-0.7); Eosinophils % (A) 4 %; HCT 53.9 % (39.0-53.0); HGB 17.8 gm/dL (13.0-17.5); Lymphocytes # (A) 1.5 k/uL (1.0-4.8); Lymphocytes % (A) 24 %; MCH 30.1 pg (25.0-35.0); MCHC 33.1 g/dL (31.0-37.0); MCV 90.8 fL (80.0-100.0); Mean Platelet Volume 7.7; Monocytes # (A) 0.4 k/uL (0-1.0); Monocytes % (A) 6 %; Neutrophils # (A) 3.8 k/uL (1.3-7.7); Neutrophils % (A) 61 %; Platelet Count 176 k/uL (150-450); RBC 5.93 m/uL (4.30-5.90); RDW 13.2 % (11.5-15.5); WBC 6.3 k/uL (3.8-10.6)
[2018-03-28 23:12] LABS: Albumin 4.5 g/dL (3.5-5.0); Magnesium 1.7 mg/dL (1.6-2.3); Potassium 4.1 mmol/L (3.5-5.1); Total Bilirubin 0.5 mg/dL (0.2-1.3)
[2018-03-28 23:14] LABS: Partial Thromboplastin Time 26.1 sec (22.0-30.0)
[2018-03-28 23:26] LABS: Creatine Kinase 82 U/L (55-170)
--- NOTE | 2018-03-28 23:35 | XR ---
EXAMINATION TYPE: XR chest 2V DATE OF EXAM: 03/28/2018 COMPARISON: 07/18/2017 HISTORY: Chest pain TECHNIQUE: Frontal and lateral views of the chest are obtained. FINDINGS: There is no heart failure nor confluent pneumonic infiltrate. Costophrenic angles are paramjit r. There are chest leads. There is no pleural effusion. Bony thorax is intact. IMPRESSION: No active cardiopulmonary disease. No change.
[2018-03-28 23:36] LABS: Appearance,Urine Clear (Clear); Bilirubin,Urine Negative (Negative); Blood,Urine Negative (Negative); Color,Urine Light Yellow; Glucose,Urine (UA) 4+ (Negative); Ketones,Urine Negative (Negative); Leukocyte Esterase,Urine Negative (Negative); Nitrite,Urine Negative (Negative); PH, Urine 5.5 (5.0-8.0); Protein,Urine Negative (Negative); Urobilinogen,Urine <2.0 mg/dL (<2.0)
[2018-03-28 23:39] LABS: Creatine Kinase MB 2.1 ng/mL (0.0-2.4); Troponin I <0.012 ng/mL (0.000-0.034)
[2018-03-28] MEDS ORDERED: SODIUM CHLORIDE 0.9% 500 ML 500 ML IV ONE (23:46)
--- NOTE | 2018-03-29 00:23 | ED ---
General Adult HPI - General Chief complaint: Recheck/Abnormal Lab/Rx Stated complaint: Tremors Time Seen by Provider: 03/28/18 22:34 Source: patient Mode of arrival: ambulatory Limitations: no limitations - History of Present Illness Initial comments: 67-year-old male patient presents to the emergency department today with reports of feeling lightheaded and "jittery". Patient states he does have type 2 diabetes, states that his blood sugars usually run between 200 and 300. States that he has been working with his electronic device repairer, she did start him on a couple of new medications a few days ago. States that today his blood sugar was around 120, this is when he started to feel lightheaded and jittery. Family reports that he is also been seeming to drag the right foot. Patient states he does not notice a difference in his gait or feel any difference in his feet. He denies any numbness or tingling to his extremities. Denies any headache, new blurred vision, or double vision. He denies any abdominal pain, nausea, or vomiting. Denies any chest pain, shortness of breath, sweats, or weakness. Patient denies any recent rash, diarrhea, constipation, back pain, numbness, tingling, hematuria, dysuria, urinary urgency, urinary frequency, or any other complaints. - Related Data Home Medications Medication Instructions Recorded Confirmed Aspirin EC [Ecotrin] 81 mg PO DAILY 06/29/14 03/28/18 Ezetimibe [Zetia] 10 mg PO DAILY 06/29/14 03/28/18 Fenofibric Acid (Choline) 135 mg PO DAILY 06/29/14 03/28/18 [Fenofibric Acid] Loratadine [Claritin] 10 mg PO DAILY 06/29/14 03/28/18 Pantoprazole Sodium 40 mg PO DAILY 06/29/14 03/28/18 valACYclovir HCL [Valtrex] 500 mg PO DAILY 06/29/14 03/28/18 Doxazosin Mesylate [Cardura] 4 mg PO DAILY 03/08/17 03/28/18 Empagliflozin [Jardiance] 25 mg PO DAILY 03/08/17 03/28/18 aMILoride-HCTZ 5-50 mg [Moduretic 1 tab PO DAILY 03/08/17 03/28/18 5-50] Cyanocobalamin (Vitamin B-12) 2,500 mcg PO DAILY 03/28/18 03/28/18 [Vitamin B12] Dulaglutide [Trulicity] 1.5 mg SQ WE 03/28/18 03/28/18 metFORMIN HCL [Glucophage] 500 mg PO BID 03/28/18 03/28/18 Allergies Allergy/AdvReac Type Severity Reaction Status Date / Time atorvastatin calcium Allergy Rash/Hives Verified 03/28/18 22:36 [From Lipitor] furosemide [From Lasix] Allergy Rash/Hives Verified 03/28/18 22:36 heparin Allergy Unknown Verified 03/28/18 22:36 ibuprofen Allergy Rash/Hives Verified 03/28/18 22:36 metoprolol succinate Allergy Unknown Verified 03/28/18 22:36 [From Toprol XL] niacin Allergy Unknown Verified 03/28/18 22:36 Sulfa (Sulfonamide Allergy Rash/Hives Verified 03/28/18 22:36 Antibiotics) glyburide AdvReac Nausea & Verified 03/28/18 22:36 Vomiting Review of Systems ROS Statement: Those systems with pertinent positive or pertinent negative responses have been documented in the HPI. ROS Other: All systems not noted in ROS Statement are negative. Past Medical History Past Medical History: CVA/TIA, Diabetes Mellitus, Hyperlipidemia, Hypertension, Myocardial Infarction ([place]) Additional Past Medical History / Comment(s): chronic left leg pain History of Any Multi-Drug Resistant Organisms: None Reported Past Surgical History: Appendectomy, Back Surgery, Cholecystectomy, Heart Catheterization With Stent, Orthopedic Surgery Additional Past Surgical History / Comment(s): finger, paritial right knee; 4 cardiac stents Past Psychological History: No Psychological Hx Reported Smoking Status: Former smoker Past Alcohol Use History: None Reported Past Drug Use History: None Reported General Exam Limitations: no limitations General appearance: alert, in no apparent distress, other (This is a well- developed, well-nourished adult male patient in no acute distress. Vital signs upon presentation are temperature 97.3F, pulse 104, respirations 18, blood pressure 137/82, pulse ox 98% on room air.) Eye exam: Present: normal appearance, PERRL, EOMI. Absent: scleral icterus, conjunctival injection, periorbital swelling ENT exam: Present: normal exam, normal oropharynx, mucous membranes moist Respiratory exam: Present: normal lung sounds bilaterally. Absent: respiratory distress, wheezes, rales, rhonchi, stridor Cardiovascular Exam: Present: regular rate, normal rhythm, normal heart sounds. Absent: systolic murmur, diastolic murmur, rubs, gallop, clicks GI/Abdominal exam: Present: soft, normal bowel sounds. Absent: distended, tenderness, guarding, rebound, rigid Neurological exam: Present: alert, oriented X3, CN II-XII intact Psychiatric exam: Present: normal affect, normal mood Skin exam: Present: warm, dry, intact, normal color. Absent: rash Course Vital Signs 03/28/18 03/28/18 03/29/18 21:57 23:00 00:34 Temperature 97.3 F L 97 F L Pulse Rate 104 H 98 66 Respiratory 18 18 18 Rate Blood Pressure 137/82 134/85 113/73 O2 Sat by Pulse 98 97 98 Oximetry EKG Findings - EKG Comments: EKG Findings:: EKG obtained at 2220 shows normal sinus rhythm with left axis deviation presence of anterior infarct of indeterminate age, anterolateral infarct of indeterminate age. Ventricular rate is 92, MD interval 172, QRS duration 104, QT 342, QTc 422. This was compared to EKG obtained in June 2017 , changes appear to be chronic. Medical Decision Making - Medical Decision Making 67 old male patient presented to the emergency department today for complaints of feeling lightheaded and jittery. Physical examination is relatively unremarkable. He was neurologically intact with no focal deficits. Family member did report concerned about him dragging his right foot. Did have patient ambulate in the department he did scuffle his shoe on the floor somewhat but there was no disturbance to his gait. Again neurologically patient is intact Good strength against resistance with plantar and dorsiflexion. Labs reviewed and did reveal red blood cell count of 5.9, hemoglobin 17.8, hematocrit 53.9, BUN was 23, creatinine 1.06, blood sugar was 208. Urinalysis showed 4+ glucose. Troponin negative. Chest x-ray showed no acute cardiopulmonary process. After receiving IV fluids in the department and eating just prior arrival patient does report improvement of his symptoms. Given that lab findings there is some concern for dehydration. We also did discuss that his symptoms could be related to rapid decline in his blood sugar. He is instructed to monitor blood sugars closely. Instructed to follow-up with his electronic device repairer as well as his primary care physician for recheck as soon as possible. Return parameters were discussed in detail. He verbalizes understanding and agrees this plan. - Lab Data Result diagrams: 03/28/18 22:15 03/28/18 22:15 Lab Results 03/28/18 03/28/18 03/28/18 Range/Units 22:09 22:15 22:15 WBC 6.3 (3.8-10.6) k/uL RBC 5.93 H (4.30-5.90) m/uL Hgb 17.8 H (13.0-17.5) gm/dL Hct 53.9 H (39.0-53.0) % MCV 90.8 (80.0-100.0) fL MCH 30.1 (25.0-35.0) pg MCHC 33.1 (31.0-37.0) g/dL RDW 13.2 (11.5-15.5) % Plt Count 176 (150-450) k/uL Neutrophils % 61 % Lymphocytes % 24 % Monocytes % 6 % Eosinophils % 4 % Basophils % 1 % Neutrophils # 3.8 (1.3-7.7) k/uL Lymphocytes # 1.5 (1.0-4.8) k/uL Monocytes # 0.4 (0-1.0) k/uL Eosinophils # 0.2 (0-0.7) k/uL Basophils # 0.1 (0-0.2) k/uL PT (9.0-12.0) sec INR (<1.2) APTT (22.0-30.0) sec Sodium (137-145) mmol/L Potassium (3.5-5.1) mmol/L Chloride (98-107) mmol/L Carbon Dioxide (22-30) mmol/L Anion Gap mmol/L BUN (9-20) mg/dL Creatinine (0.66-1.25) mg/dL Est GFR (CKD-EPI)AfAm (>60 ml/min/1.73 sqM) Est GFR (CKD-EPI)NonAf (>60 ml/min/1.73 sqM) Glucose (74-99) mg/dL POC Glucose (mg/dL) 208 H (75-99) mg/dL POC Glu [employer] Officer ID Lukas Ang Calcium (8.4-10.2) mg/dL Magnesium (1.6-2.3) mg/dL Total Bilirubin (0.2-1.3) mg/dL AST (17-59) U/L ALT (21-72) U/L Alkaline Phosphatase (38-126) U/L Total Creatine Kinase 82 (55-170) U/L CK-MB (CK-2) 2.1 (0.0-2.4) ng/mL CK-MB (CK-2) Rel Index 2.6 Troponin I <0.012 (0.000-0.034) ng/mL Total Protein (6.3-8.2) g/dL Albumin (3.5-5.0) g/dL Urine Color Urine Appearance (Clear) Urine pH (5.0-8.0) Ur Specific [place] (1.001-1.035) Urine Protein (Negative) Urine Glucose (UA) (Negative) Urine Ketones (Negative) Urine Blood (Negative) Urine Nitrite (Negative) Urine Bilirubin (Negative) Urine Urobilinogen (<2.0) mg/dL Ur Leukocyte Esterase (Negative) 03/28/18 03/28/18 03/28/18 Range/Units 22:15 22:15 23:00 WBC (3.8-10.6) k/uL RBC (4.30-5.90) m/uL Hgb (13.0-17.5) gm/dL Hct (39.0-53.0) % MCV (80.0-100.0) fL MCH (25.0-35.0) pg MCHC (31.0-37.0) g/dL RDW (11.5-15.5) % Plt Count (150-450) k/uL Neutrophils % % Lymphocytes % % Monocytes % % Eosinophils % % Basophils % % Neutrophils # (1.3-7.7) k/uL Lymphocytes # (1.0-4.8) k/uL Monocytes # (0-1.0) k/uL Eosinophils # (0-0.7) k/uL Basophils # (0-0.2) k/uL PT 11.0 (9.0-12.0) sec INR 1.0 (<1.2) APTT 26.1 (22.0-30.0) sec Sodium 137 (137-145) mmol/L Potassium 4.1 (3.5-5.1) mmol/L Chloride 99 (98-107) mmol/L Carbon Dioxide 25 (22-30) mmol/L Anion Gap 13 mmol/L BUN 23 H (9-20) mg/dL Creatinine 1.06 (0.66-1.25) mg/dL Est GFR (CKD-EPI)AfAm 85 (>60 ml/min/1.73 sqM) Est GFR (CKD-EPI)NonAf 73 (>60 ml/min/1.73 sqM) Glucose 208 H (74-99) mg/dL POC Glucose (mg/dL) (75-99) mg/dL POC Glu [employer] Officer ID Calcium 10.0 (8.4-10.2) mg/dL Magnesium 1.7 (1.6-2.3) mg/dL Total Bilirubin 0.5 (0.2-1.3) mg/dL AST 29 (17-59) U/L ALT 42 (21-72) U/L Alkaline Phosphatase 69 (38-126) U/L Total Creatine Kinase (55-170) U/L CK-MB (CK-2) (0.0-2.4) ng/mL CK-MB (CK-2) Rel Index Troponin I (0.000-0.034) ng/mL Total Protein 7.0 (6.3-8.2) g/dL Albumin 4.5 (3.5-5.0) g/dL Urine Color Light Yellow Urine Appearance Clear (Clear) Urine pH 5.5 (5.0-8.0) Ur Specific [place] 1.020 (1.001-1.035) Urine Protein Negative (Negative) Urine Glucose (UA) 4+ H (Negative) Urine Ketones Negative (Negative) Urine Blood Negative (Negative) Urine Nitrite Negative (Negative) Urine Bilirubin Negative (Negative) Urine Urobilinogen <2.0 (<2.0) mg/dL Ur Leukocyte Esterase Negative (Negative) - Radiology Data Radiology results: report reviewed, image reviewed Two-view x-ray of the chest is obtained. There is no heart failure nor confluent pneumonic infiltrate. Costophrenic angles are clear. There are chest leads. There is no pleural effusion. Bony thorax is intact. Impression by Dr. Ralph shows no active cardiopulmonary disease. No change. Disposition Clinical Impression: Dehydration, Lightheaded Disposition: HOME SELF-CARE Condition: Good Instructions: Dehydration (ED), Lightheadedness (ED) Additional Instructions: Increase fluids. Take medications as directed. Follow-up with your primary care physician and your electronic device repairer for recheck as soon as possible. Monitor blood sugars closely. Return immediately for any new, worsening, or concerning symptoms. Is patient prescribed a controlled substance at d/c from ED?: No Referrals: Adam Live III, MD [Primary Care Provider] - 1-2 days Time of Disposition: 00:23
[2018-03-29 00:35] VITALS: BP 113/73; PULSE 66; TEMP 97
== END 2018-03-29 00:34 | disposition home or self-care (01) ==
LOC: EC 21:55
DX: E86.0 Dehydration (principal); R42 Dizziness and giddiness; E11.9 Type 2 diabetes mellitus without complications; E78.5 Hyperlipidemia, unspecified; I10 Essential (primary) hypertension; I25.2 Old myocardial infarction; Z79.82 Long term (current) use of aspirin; Z79.84 Long term (current) use of oral hypoglycemic drugs; Z79.899 Other long term (current) drug therapy; Z88.6 Allergy status to analgesic agent; Z88.2 Allergy status to sulfonamides; Z88.8 Allergy status to other drugs, medicaments and biological substances; Z86.73 Personal history of transient ischemic attack (TIA), and cerebral infarction without residual deficits; Z87.891 Personal history of nicotine dependence; Z95.5 Presence of coronary angioplasty implant and graft
CPT/HCPCS: 36415; 71046; 80053; 81003; 82550; 82553; 83735; 84484; 85025; 85610; 85730; 93005; 96360; 99284

== ENCOUNTER → 2018-05-07 | Outpatient (CLI) | payer MEDICARE, OTHER ==
--- NOTE | 2018-05-07 16:21 | CONS ---
CONSULTATION CHIEF COMPLAIN: Does not sleep at night. HISTORY OF PRESENT ILLNESS: This is a 67-year-old male patient who has had chronic difficulties with maintaining and initiating sleep. More recently, he has been feeling more tired and fatigued and he is having short-term memory loss and he was referred to me for another evaluation. He has diabetes mellitus and chronic neuropathy which has caused significant amount of pain in his right lower extremity, essentially neuropathic pain. The patient is on Neurontin 100 mg at bedtime. He has also diabetes mellitus, BPH, hyperlipidemia, coronary artery disease with previous coronary stenting x4 and hypertension. He goes to bed around midnight. Sometimes he is able to initiate sleep within 10-20 minutes. However, he wakes up every hour or so for reasons that are not clear. Sometimes he cannot get situated and the pain that he is experiencing can cause some sleep disruption and arousals. Nevertheless, other times he wakes up for no obvious reasons. He snores. There is no obvious history of witnessed apneas. He gets out of bed around 6 o'clock. He does not take any naps during the day. His Likely score is 8. No excessive caffeine intake at nighttime. No late dinners. No alcoholism. He has quit drinking and smoking for the past 20 years. He feels tired and fatigued during the day and as mentioned he has been having problems with memory, essentially short-term memory. No head trauma. No history of any nocturnal angina or chest pain. No anxiety. No depression. No PTSD. No other psychiatric disorders. PAST MEDICAL HISTORY: Leg pain/neuropathy, diabetes mellitus, BPH, hyperlipidemia, coronary artery disease and previous stenting x4 and hypertension. PAST SURGICAL HISTORY: Includes sinus surgery, right knee replacement, cardiac catheterization and coronary stenting, elbow cellulitis. Laparoscopic surgery on his lower back. SOCIAL HISTORY: Nonsmoker. No alcohol. No IV drugs. FAMILY HISTORY: Negative for sleep apnea. OUTPATIENT MEDICATION LIST: Includes 5/50 1 tab a day. Aspirin 81 a day. Protonix 40 daily, Diltiazem 4 mg p.o. daily, loratadine 10 mg p.o. daily, Jardiance 25 mg p.o. daily, fenofibrate 135 mg p.o. daily, Januvia 1000 mg p.o. daily, metformin 50 mg p.o. twice a day, vitamin B12 1000 mcg p.o. twice a day. REVIEW OF SYSTEMS: 12-point review of system was done. Positive findings are mentioned above in the history of present illness. No anxiety or depression. No panic. No nocturnal heartburn, chest pain or shortness of breath. No dreams. No hallucinations. No cataplexy. No nightmares. No history of any motor vehicle accident because of feeling drowsy or sleepy. He does have some restlessness in the lower extremities. PHYSICAL EXAMINATION: BP is 155/72, pulse 92, respirations 16, temperature 97.9. Saturation 96% on room air. Weight is 200, height is 5 feet 9 inches, neck size 16. BMI 29.5. GENERAL APPEARANCE: Calm, comfortable. Head is atraumatic, normocephalic. NECK: Supple. No JVD. No goiter or neck masses. Mallampati class 2-3. LUNGS: Clear to auscultation. HEART: Sounds regular rate and rhythm. Normal S1, S2. No S3. No murmurs. ABDOMEN: Soft, nontender. No organomegaly. Extremities are no cyanosis or clubbing. Neurological: Alert and oriented times three. No focal neurological deficits. PSYCHIATRIC: Negative for anxiety or depression. IMPRESSION: 1. Disruptive sleep along with sleep maintenance insomnia. Exact cause is not clear. Consider underlying neuropathic pain resulting in sleep fragmentation. The patient has symptoms of neuropathy related to diabetes mellitus. Obstructive sleep apnea is another possibility causing sleep disruption. No other psychiatric disorders such as anxiety or depression or PTSD. No history of any bipolar disorder. No other contributing factors to his sleep fragmentation. 2. Diabetes mellitus. 3. Peripheral neuropathy and chronic leg pain. 4. Benign prostatic hypertrophy. 5. Hyperlipidemia. 6. Coronary artery disease with previous coronary stenting. 7. Hypertension. 8. PLAN: 1. Increase Neurontin up to 200 mg to be taken around 2-3 hours prior to going to bed. 2. Offer this patient 5 mg of Ambien for sleep induction and maintenance. 3. Proceed with screening polysomnogram looking for any other comorbidities contributing to sleep fragmentation. will be restless leg, periodic limb movement and sleep apnea. 4. Continue to follow. MMODL / IJN: [id number] /
== END | disposition home or self-care (01) ==
LOC: SLEEP 14:32
PROVIDERS: ATTEND Internal Medicine Critical Care Medicine
DX: G47.00 Insomnia, unspecified (principal); R06.83 Snoring; E11.40 Type 2 diabetes mellitus with diabetic neuropathy, unspecified; G89.29 Other chronic pain; M79.661 Pain in right lower leg; N40.0 Benign prostatic hyperplasia without lower urinary tract symptoms; E78.5 Hyperlipidemia, unspecified; I25.10 Atherosclerotic heart disease of native coronary artery without angina pectoris; I10 Essential (primary) hypertension; Z79.899 Other long term (current) drug therapy; Z96.651 Presence of right artificial knee joint; Z98.890 Other specified postprocedural states; Z79.82 Long term (current) use of aspirin; Z95.5 Presence of coronary angioplasty implant and graft; Z79.84 Long term (current) use of oral hypoglycemic drugs
CPT/HCPCS: 99211

== ENCOUNTER → 2019-11-03 | Outpatient (CLI) | payer MEDICARE ==
[2019-11-03 10:06] LABS: African American GFR (CKD) >90 (>60 ml/min/1.73 sqM); Blood Urea Nitrogen 16 mg/dL (9-20); Non-African American GFR(CKD) >90 (>60 ml/min/1.73 sqM)
--- NOTE | 2019-11-03 11:54 | CT ---
EXAMINATION TYPE: CT chest w con DATE OF EXAM: 11/03/2019 COMPARISON: Prior CT chest 11/09/2015, chest x-ray 03/28/2018 HISTORY: Right sided chest pain with history of rib fractures. CT DLP: 563 mGycm Automated exposure control for dose reduction was used. CONTRAST: CT scan of the chest is performed with IV Contrast, patient injected with 100 mL of Isovue 300. FINDINGS: LUNGS: The lungs are grossly clear, there is no concerning parenchymal mass or nodule identified. T here is no pleural effusion or pneumothorax seen. The tracheobronchial tree is patent. No calcified pleural plaques. MEDIASTINUM: There are no greater than 1 cm hilar or mediastinal lymph nodes. No pericardial effusi on is seen. There are coronary artery calcifications. AORTA: No additional significant abnormality is seen. OTHER: Liver shows low attenuation likely due to hepatic steatosis. Within the right lobe there is s ome low-attenuation areas which are likely stable, statistically likely to represent cysts but are in determinate. The spleen is enlarged, liver may be enlarged. IMPRESSION: Hepatic steatosis, splenomegaly. No calcified pleural plaques are evident lung mass, no mediastinal adenopathy. There is coronary artery disease.
== END | disposition home or self-care (01) ==
LOC: RADCTMAIN 09:06
PROVIDERS: ATTEND Family Medicine
DX: I25.10 Atherosclerotic heart disease of native coronary artery without angina pectoris (principal); F17.211 Nicotine dependence, cigarettes, in remission
CPT/HCPCS: 82565; 84520; 71260; 36415; Q9967

== ENCOUNTER → 2019-11-20 | Outpatient (CLI) | payer MEDICARE, OTHER ==
[2019-11-20 08:58] LABS: Albumin 4.2 g/dL (3.5-5.0); Bilirubin, Delta 0.1 mg/dL (0.0-0.2); Bilirubin,Unconjugated 0.6 mg/dL (0.0-1.1); Total Bilirubin 0.7 mg/dL (0.2-1.3); Total Protein 6.3 g/dL (6.3-8.2)
--- NOTE | 2019-11-20 09:18 | US ---
EXAMINATION TYPE: US abdomen complete DATE OF EXAM: 11/20/2019 COMPARISON: CT 11/23/2016 CLINICAL HISTORY: R16.2 Hepatomegaly with splenomegaly, not elsewher. Enlarged liver and spleen EXAM MEASUREMENTS: Liver Length: 17.1 cm Gallbladder Wall: Surgically absent cm CBD: .4 cm Spleen: 12.4 cm Right Kidney: 10.6 x 4.5 x 4.7 cm Left Kidney: 9.9 x 5.7 x 5.2 cm Pancreas: Obscured by bowel gas Liver: Increased attenuation Gallbladder: Surgically absent Evidence for sonographic Warren's sign: No CBD: wnl Spleen: wnl Right Kidney: Hypoechoic area lower pole 1.4 x 1.1 x 1.4 cm may represent a cortical cyst Left Kidney: wnl Upper IVC: Limited Abd Aorta: wnl in its visualized portions There is no ascites. Kidneys show normal cortical medullary differentiation. IMPRESSION: Findings suggest hepatic steatosis or hepatocellular disease, liver measurement may be a rtificially decreased. Probable cortical cyst lower pole right kidney. Post cholecystectomy. Limited exam.
== END | disposition home or self-care (01) ==
LOC: RADUSWWP 07:33
PROVIDERS: ATTEND Family Medicine
DX: R16.2 Hepatomegaly with splenomegaly, not elsewhere classified (principal)
CPT/HCPCS: 76700; 80076

== ENCOUNTER 2019-12-03 21:57 | Emergency (ER) | payer MEDICARE ==
[2019-12-03 22:05] VITALS: BP 169/78; PULSE 70; RESP 16; TEMP 98.1
[2019-12-03] MEDS ORDERED: CEPHALEXIN 500 MG CAP PO STA (22:30)
--- NOTE | 2019-12-03 22:30 | ED ---
Upper Extremity HPI - General Chief Complaint: Extremity Injury, Upper Stated Complaint: left middle finger injury Time Seen by Provider: 12/03/19 22:05 Source: patient Mode of arrival: ambulatory Limitations: no limitations - History of Present Illness Initial Comments: 69-year-old male presents emergency Department chief complaint of left hand third digit injury. Patient states 2 days ago he pinched it between the roll bar on his foot gatherer. Patient states that his fingernail for Lacri-Lube states is painful without pain went away states now his noticed some redness along the proximal portion of the nail. Patient is concerned about possible infection is a known diabetic. Patient offers no other complaints. - Related Data Home Medications Medication Instructions Recorded Confirmed Aspirin EC [Ecotrin] 81 mg PO DAILY 06/29/14 03/28/18 Ezetimibe [Zetia] 10 mg PO DAILY 06/29/14 03/28/18 Fenofibric Acid (Choline) 135 mg PO DAILY 06/29/14 03/28/18 [Fenofibric Acid] Loratadine [Claritin] 10 mg PO DAILY 06/29/14 03/28/18 Pantoprazole Sodium 40 mg PO DAILY 06/29/14 03/28/18 valACYclovir HCL [Valtrex] 500 mg PO DAILY 06/29/14 03/28/18 Doxazosin Mesylate [Cardura] 4 mg PO DAILY 03/08/17 03/28/18 Empagliflozin [Jardiance] 25 mg PO DAILY 03/08/17 03/28/18 aMILoride-HCTZ 5-50 mg [Moduretic 1 tab PO DAILY 03/08/17 03/28/18 5-50] Cyanocobalamin (Vitamin B-12) 2,500 mcg PO DAILY 03/28/18 03/28/18 [Vitamin B12] Dulaglutide [Trulicity] 1.5 mg SQ WE 03/28/18 03/28/18 metFORMIN HCL [Glucophage] 500 mg PO BID 03/28/18 03/28/18 Previous Rx's Medication Instructions Recorded Cephalexin [Keflex] 500 mg PO Q6HR #28 cap 12/03/19 Allergies Allergy/AdvReac Type Severity Reaction Status Date / Time atorvastatin calcium Allergy Rash/Hives Verified 12/03/19 22:05 [From Lipitor] furosemide [From Lasix] Allergy Rash/Hives Verified 12/03/19 22:05 heparin Allergy Unknown Verified 12/03/19 22:05 ibuprofen Allergy Rash/Hives Verified 12/03/19 22:05 metoprolol succinate Allergy Unknown Verified 12/03/19 22:05 [From Toprol XL] niacin Allergy Unknown Verified 12/03/19 22:05 Sulfa (Sulfonamide Allergy Rash/Hives Verified 12/03/19 22:05 Antibiotics) glyburide AdvReac Nausea & Verified 12/03/19 22:05 Vomiting Review of Systems ROS Statement: Those systems with pertinent positive or pertinent negative responses have been documented in the HPI. ROS Other: All systems not noted in ROS Statement are negative. Past Medical History Past Medical History: CVA/TIA, Diabetes Mellitus, Hyperlipidemia, Hypertension, Myocardial Infarction ([place]) Additional Past Medical History / Comment(s): chronic left leg pain History of Any Multi-Drug Resistant Organisms: None Reported Past Surgical History: Appendectomy, Back Surgery, Cholecystectomy, Heart Catheterization With Stent, Orthopedic Surgery Additional Past Surgical History / Comment(s): finger, paritial right knee; 4 cardiac stents Past Psychological History: No Psychological Hx Reported Smoking Status: Former smoker Past Alcohol Use History: None Reported Past Drug Use History: None Reported General Exam Limitations: no limitations General appearance: alert, in no apparent distress Head exam: Present: atraumatic, normocephalic, normal inspection Eye exam: Present: normal appearance, PERRL, EOMI. Absent: scleral icterus, conjunctival injection, periorbital swelling Respiratory exam: Present: normal lung sounds bilaterally. Absent: respiratory distress, wheezes, rales, rhonchi, stridor Cardiovascular Exam: Present: regular rate, normal rhythm, normal heart sounds. Absent: systolic murmur, diastolic murmur, rubs, gallop, clicks Extremities exam: Present: other (Left hand third digit there is a subungual hematoma. There is some mild erythema along the nail fold patient has full range of motion neurovascular intact) Course Vital Signs 12/03/19 22:01 Temperature 98.1 F Pulse Rate 70 Respiratory 16 Rate Blood Pressure 169/78 O2 Sat by Pulse 98 Oximetry Medical Decision Making - Medical Decision Making Patient's has subungual hematoma there is no evidence of tuft fracture. There is concerning signs of possible early paronychia. Patient placed on antibiotics. Disposition Clinical Impression: Subungual hematoma of left middle finger, Paronychia Disposition: HOME SELF-CARE Condition: Stable Instructions (If sedation given, give patient instructions): Subungual Hematoma (ED), Paronychia (ED) Additional Instructions: Please return to the Emergency Department if symptoms worsen or any other concerns. Prescriptions: Cephalexin [Keflex] 500 mg PO Q6HR #28 cap Is patient prescribed a controlled substance at d/c from ED?: No Referrals: Adam Live III, MD [Primary Care Provider] - 1-2 days Time of Disposition: 22:30
--- NOTE | 2019-12-03 22:45 | XR ---
EXAMINATION TYPE: XR finger LT DATE OF EXAM: 12/03/2019 COMPARISON: NONE HISTORY: Pain TECHNIQUE: 3 views FINDINGS: I see no definite fracture. There is minor spurring at the DIP joint of the middle finger. There is no dislocation. IMPRESSION: Mild spurring. No fracture seen.
== END 2019-12-03 22:39 | disposition home or self-care (01) ==
LOC: EC 21:57
DX: S60.132A Contusion of left middle finger with damage to nail, initial encounter (principal); L03.012 Cellulitis of left finger; I10 Essential (primary) hypertension; E78.5 Hyperlipidemia, unspecified; I25.2 Old myocardial infarction; E11.9 Type 2 diabetes mellitus without complications; Z79.84 Long term (current) use of oral hypoglycemic drugs; Z79.82 Long term (current) use of aspirin; Z79.899 Other long term (current) drug therapy; Z95.5 Presence of coronary angioplasty implant and graft; Z86.73 Personal history of transient ischemic attack (TIA), and cerebral infarction without residual deficits; Z87.891 Personal history of nicotine dependence; Z88.2 Allergy status to sulfonamides; Z88.8 Allergy status to other drugs, medicaments and biological substances; Z88.6 Allergy status to analgesic agent; W22.8XXA Striking against or struck by other objects, initial encounter
CPT/HCPCS: 99283

== ENCOUNTER → 2019-12-30 | Outpatient (CLI) | payer MEDICARE ==
[2019-12-30 15:20] LABS: African American GFR (CKD) >90 (>60 ml/min/1.73 sqM); Blood Urea Nitrogen 15 mg/dL (9-20); Non-African American GFR(CKD) >90 (>60 ml/min/1.73 sqM)
--- NOTE | 2019-12-30 19:59 | CT ---
EXAMINATION TYPE: CT abdomen pelvis w con DATE OF EXAM: 12/30/2019 COMPARISON: 11/23/2016, 06/29/2014 HISTORY: Right side flank and abdominal pain. CT DLP: 1331.7 mGycm Automated exposure control for dose reduction was used. CONTRAST: CT scan of the abdomen pelvis is performed with IV Contrast, patient injected with 100ml mL of Isovue 300. FINDINGS- LUNG BASES-coronary artery calcification noted. Trace of pericardial fluid seen.. LIVER/GB-changes of hepatic steatosis. Postcholecystectomy changes. Stable hypodensity posterior segm ent right lobe of the liver measuring less than a centimeter and too small to characterize. Given sta bility over time likely benign. PANCREAS- No gross abnormality is seen. SPLEEN-spleen measures 14 cm compatible with mild splenomegaly.. ADRENALS-minimal thickening or nodularity of the adrenal glands too small to characterize but retrosp ectively stable and therefore benign.. KIDNEYS/BLADDER- no hydronephrosis or nephrolithiasis. Subcentimeter hypodensity stable posterior mid to lower pole right kidney. Too small to characterize but likely related to simple cyst. BOWEL-bowel gas pattern nonspecific. Is a surgical clip in the right lower quadrant possibly related to previous appendectomy.. LYMPH NODES- No greater than 1cm abdominal or pelvic lymph nodes areappreciated. OSSEOUS STRUCTURES-hypertrophic and degenerative change of the spine. OTHER- atherosclerotic change aorta. No evidence of aneurysm. Prostate gland is enlarged. Correlate clinically. Asymmetric atrophy of the left paraspinal musculature posteriorly in the region of the sa geoffrey. Bilateral fat-containing inguinal hernias IMPRESSION- 1. No definite acute process. Stable hepatic and right renal lesions unchanged from prior exams and t herefore likely benign. 2. Borderline splenomegaly correlate clinically. 3. Prostate hypertrophy 4. Limited assessment: Due to incomplete distention and lack of contrast. Correlate for mild divertic ulosis.
== END | disposition home or self-care (01) ==
LOC: RADCTMAIN 14:33
PROVIDERS: ATTEND Nurse Practitioner
DX: N28.89 Other specified disorders of kidney and ureter (principal); K76.89 Other specified diseases of liver; R16.1 Splenomegaly, not elsewhere classified; N40.0 Benign prostatic hyperplasia without lower urinary tract symptoms
CPT/HCPCS: 82565; 84520; 74177; 36415; Q9967

== ENCOUNTER → 2020-01-16 | Outpatient (CLI) | payer MEDICARE ==
[2020-01-16 12:07] LABS: Basophils # (A) 0.1 k/uL (0-0.2); Basophils % (A) 1 %; Eosinophils # (A) 0.2 k/uL (0-0.7); Eosinophils % (A) 4 %; HCT 51.2 % (39.0-53.0); HGB 17.2 gm/dL (13.0-17.5); Lymphocytes # (A) 1.2 k/uL (1.0-4.8); Lymphocytes % (A) 23 %; MCH 30.2 pg (25.0-35.0); MCHC 33.6 g/dL (31.0-37.0); MCV 89.9 fL (80.0-100.0); Mean Platelet Volume 8.4; Monocytes # (A) 0.4 k/uL (0-1.0); Monocytes % (A) 8 %; Neutrophils # (A) 3.3 k/uL (1.3-7.7); Neutrophils % (A) 63 %; Platelet Count 159 k/uL (150-450); RBC 5.69 m/uL (4.30-5.90); RDW 13.3 % (11.5-15.5); WBC 5.2 k/uL (3.8-10.6)
[2020-01-16 19:21] LABS: % Iron Saturation 22.47 (15.00-50.00)
[2020-01-16 19:30] LABS: Ferritin 145.7 ng/mL (22.0-322.0)
[2020-01-16 20:20] LABS: Hemoglobin A1C 9.8 % (4.0-6.0)
== END | disposition home or self-care (01) ==
LOC: LABWHC1 10:54
PROVIDERS: ATTEND Nurse Practitioner
DX: R16.0 Hepatomegaly, not elsewhere classified (principal)
CPT/HCPCS: 36415; 82728; 83036; 83540; 83550; 85025; 86803

== ENCOUNTER → 2020-04-30 | Outpatient (CLI) | payer MEDICARE ==
--- NOTE | 2020-05-05 11:09 | P.ARTDOP ---
Arterial Doppler LOWER EXTREMITY ARTERIAL DOPPLER: DATE OF SERVICE: 04/30/2020 Reason for study: Difficulty walking. Doppler waveforms: Multiphasic bilaterally throughout with excellent toe waveforms. Pulse volume recording: []. Pressure gradients: None. Ankle-brachial indices: Greater than 1 bilaterally Toe brachial indices: 0.66 on the right, 0.71 on the left Impression: Normal study.
== END | disposition home or self-care (01) ==
LOC: RADUSWWP 07:28
PROVIDERS: ATTEND Family Medicine
DX: M79.604 Pain in right leg (principal); M79.605 Pain in left leg; I25.10 Atherosclerotic heart disease of native coronary artery without angina pectoris
CPT/HCPCS: 93922

== ENCOUNTER → 2020-05-18 | Outpatient (CLI) | payer MEDICARE | END | disposition home or self-care (01) | LOC: LABWHC1 13:36 | PROVIDERS: ATTEND Urology | DX: C61 Malignant neoplasm of prostate (principal) | CPT/HCPCS: 36415; 84153 ==

== ENCOUNTER → 2020-12-08 | Outpatient (CLI) | payer MEDICARE, OTHER ==
--- NOTE | 2020-12-08 13:36 | XR ---
EXAMINATION TYPE: XR Hip Bilateral and AP pelvis DATE OF EXAM: 12/08/2020 CLINICAL HISTORY: pain TECHNIQUE: Single view the pelvis is submitted. 2 views of the bilateral hips are also submitted. FINDINGS: No evidence for fracture, dislocation or bony lesion. Joint spaces are well-preserved. S I joints appear symmetric. IMPRESSION: 1. No acute fracture or dislocation seen. ICD 10 NO FRACTURE, INITIAL EVALUATION
== END | disposition home or self-care (01) ==
LOC: RADXRMAIN 13:00
PROVIDERS: ATTEND Family Medicine
DX: M25.551 Pain in right hip (principal); M25.552 Pain in left hip
CPT/HCPCS: 73521

== ENCOUNTER → 2020-12-29 | Outpatient (CLI) | payer MEDICARE, OTHER | END | disposition home or self-care (01) | LOC: LABWHC1 13:48 | PROVIDERS: ATTEND Urology | DX: C61 Malignant neoplasm of prostate (principal) | CPT/HCPCS: 36415; 84153 ==

== ENCOUNTER → 2020-12-29 | Outpatient (CLI) | payer MEDICARE, OTHER ==
--- NOTE | 2020-12-29 14:14 | XR ---
EXAMINATION TYPE: XR lumbar spine with bend/flex DATE OF EXAM: 12/29/2020 CLINICAL HISTORY: pain COMPARISON: NONE TECHNIQUE: Frontal, lateral, and oblique images of the lumbar spine are obtained. Additional flexion and extension views are obtained. FINDINGS: There are 5 lumbar type vertebral bodies identified. The lumbar spine shows satisfactory alignment without evidence of acute fracture or dislocation. Vertebral body heights are within normal limits. Mild degenerative disc space narrowing and spondylosis seen throughout. Lower lumbar facet j oint arthropathy. Normal alignment at neutral, flexion and extension. The overlying soft tissue alma ears unremarkable. IMPRESSION: No acute fracture or dislocation is seen in the lumbar spine.ICD 10 NO FRACTURE, INITIAL EVALUATION
== END | disposition home or self-care (01) ==
LOC: RADXRMAIN 13:02
PROVIDERS: ATTEND Neurological Surgery
DX: M54.5 Low back pain (principal)
CPT/HCPCS: 72114

== ENCOUNTER → 2021-01-31 | Outpatient (CLI) | payer MEDICARE, OTHER ==
--- NOTE | 2021-01-31 15:38 | XR ---
Left shoulder HISTORY: Left shoulder pain 3 views of left shoulder There is a distal acromial spur. Arthropathy changes are present at the acromioclavicular joint. Ther e is no fracture or dislocation. Left lung apex as visualized is normal. IMPRESSION: Correlate for shoulder impingement.
--- NOTE | 2021-01-31 15:43 | XR ---
Acromioclavicular joints HISTORY: M47.26 M25.512 S46.092A 6views of each acromion clavicular joints are submitted Acromioclavicular joints show hypertrophic change, marginal spurring. There is no excursion noted on with weights versus without weights views. Lung apices are unremarkable. Distal acromions downturned. IMPRESSION: Acromioclavicular joint arthropathy
--- NOTE | 2021-01-31 15:45 | XR ---
EXAMINATION TYPE: XR chest 2V DATE OF EXAM: 01/31/2021 COMPARISON: Chest x-ray 03/28/2018 HISTORY: M47.26 M25.512 S46.092A TECHNIQUE: Frontal and lateral views of the chest are obtained. FINDINGS: There is no focal air space opacity, pleural effusion, or pneumothorax seen. The cardiac silhouette size is within normal limits. There is eventration of the right hemidiaphragm. There is th oracic spondylosis, flowing anterior osteophytes with preservation of disc height may be indicative o f diffuse idiopathic skeletal hyperostosis. The osseous structures are intact. IMPRESSION: No acute cardiopulmonary process.
== END | disposition home or self-care (01) ==
LOC: RADXRMAIN 14:46
PROVIDERS: ATTEND Neurological Surgery
DX: M19.011 Primary osteoarthritis, right shoulder (principal); M19.012 Primary osteoarthritis, left shoulder; M47.26 Other spondylosis with radiculopathy, lumbar region
CPT/HCPCS: 71046; 73050

== ENCOUNTER 2021-05-28 18:51 | Emergency (ER) | payer MEDICARE, OTHER ==
[2021-05-28] MEDS ORDERED: SODIUM CHLORIDE 0.9% 500 ML 500 ML IV STA (19:18)
[2021-05-28] MEDS ORDERED: ONDANSETRON 4 MG/2 ML VIAL IVP STA (19:18)
[2021-05-28] MEDS ORDERED: ACETAMINOPHEN TAB 325 MG TAB PO STA (20:21)
[2021-05-28] MEDS ORDERED: SOTROVIMAB (EUA) 500 MG in SODIUM CHLORIDE 0.9% 100 ML IVPB ONE (21:00)
[2021-05-28] MEDS ORDERED: SODIUM CHLORIDE 0.9% 50 ML IVPB ONE (21:30)
--- NOTE | 2021-05-28 21:33 | ED ---
General Adult HPI - General Chief complaint: Headache Stated complaint: Covid+/antibodies Time Seen by Provider: 05/28/21 19:45 Source: patient, RN notes reviewed, old records reviewed Mode of arrival: ambulatory Limitations: no limitations - History of Present Illness Initial comments: 70-year-old well-appearing male in no acute distress presents to the emergency room ambulatory with complaints of frontal headache and testing positive for coronavirus yesterday at [facility]. Patient was sent by his primary care doctor for monoclonal antibodies infusion. He did get vaccinated but did not receive his booster yet. He states he has a history of prostate cancer, diabetes, hypertension and myocardial infarction. Oxygen saturation is 98% on room air. Location: head Severity scale (1-10): 9 Quality: aching Consistency: constant Associated Symptoms: fever/chills - Related Data Home Medications Medication Instructions Recorded Confirmed Aspirin EC [Ecotrin] 81 mg PO DAILY 06/29/14 03/28/18 Ezetimibe [Zetia] 10 mg PO DAILY 06/29/14 03/28/18 Fenofibric Acid (Choline) 135 mg PO DAILY 06/29/14 03/28/18 [Fenofibric Acid] Loratadine [Claritin] 10 mg PO DAILY 06/29/14 03/28/18 Pantoprazole Sodium 40 mg PO DAILY 06/29/14 03/28/18 valACYclovir HCL [Valtrex] 500 mg PO DAILY 06/29/14 03/28/18 Doxazosin Mesylate [Cardura] 4 mg PO DAILY 03/08/17 03/28/18 Empagliflozin [Jardiance] 25 mg PO DAILY 03/08/17 03/28/18 aMILoride-HCTZ 5-50 mg [Moduretic 1 tab PO DAILY 03/08/17 03/28/18 5-50] Cyanocobalamin (Vitamin B-12) 2,500 mcg PO DAILY 03/28/18 03/28/18 [Vitamin B12] Dulaglutide [Trulicity] 1.5 mg SQ WE 03/28/18 03/28/18 metFORMIN HCL [Glucophage] 500 mg PO BID 03/28/18 03/28/18 Previous Rx's Medication Instructions Recorded Cephalexin [Keflex] 500 mg PO Q6HR #28 cap 12/03/19 Allergies Allergy/AdvReac Type Severity Reaction Status Date / Time atorvastatin calcium Allergy Rash/Hives Verified 05/28/21 19:04 [From Lipitor] furosemide [From Lasix] Allergy Rash/Hives Verified 05/28/21 19:04 heparin Allergy Unknown Verified 05/28/21 19:04 ibuprofen Allergy Rash/Hives Verified 05/28/21 19:04 metformin Allergy Unknown Verified 05/28/21 19:04 metoprolol succinate Allergy Unknown Verified 05/28/21 19:04 [From Toprol XL] niacin Allergy Unknown Verified 05/28/21 19:04 Sulfa (Sulfonamide Allergy Rash/Hives Verified 05/28/21 19:04 Antibiotics) glyburide AdvReac Nausea & Verified 05/28/21 19:04 Vomiting Review of Systems ROS Statement: Those systems with pertinent positive or pertinent negative responses have been documented in the HPI. ROS Other: All systems not noted in ROS Statement are negative. Past Medical History Past Medical History: Cancer, CVA/TIA, Diabetes Mellitus, Hyperlipidemia, Hypertension, Myocardial Infarction ([place]), Prostate Disorder Additional Past Medical History / Comment(s): chronic left leg pain, prostate cancer History of Any Multi-Drug Resistant Organisms: None Reported Past Surgical History: Appendectomy, Back Surgery, Cholecystectomy, Heart Catheterization With Stent, Orthopedic Surgery Additional Past Surgical History / Comment(s): finger, paritial right knee; 4 cardiac stents Past Psychological History: No Psychological Hx Reported Smoking Status: Former smoker Past Alcohol Use History: None Reported Past Drug Use History: None Reported General Exam Limitations: no limitations General appearance: alert, in no apparent distress Eye exam: Present: normal appearance ENT exam: Present: normal exam, normal oropharynx, mucous membranes moist Neck exam: Present: normal inspection Respiratory exam: Present: normal lung sounds bilaterally. Absent: respiratory distress, wheezes, rales, rhonchi, stridor Cardiovascular Exam: Present: tachycardia. Absent: JVD GI/Abdominal exam: Present: soft Extremities exam: Present: normal capillary refill Back exam: Present: normal inspection, full ROM. Absent: tenderness, CVA tenderness (R), CVA tenderness (L), rash noted Neurological exam: Present: alert, oriented X3, normal gait Psychiatric exam: Present: normal affect, normal mood Skin exam: Present: warm, dry, intact, normal color. Absent: rash, cyanosis, diaphoretic, petechiae, pallor Course Vital Signs 05/28/21 05/28/21 18:59 21:03 Temperature 99 F 97.9 F Pulse Rate 120 H 89 Respiratory 20 18 Rate Blood Pressure 123/74 O2 Sat by Pulse 98 94 L Oximetry Medical Decision Making - Medical Decision Making 70-year-old male presents to the emergency room after being sent by his primary care doctor for monoclonal antibodies infusion. He states he developed a frontal headache and tested positive for coronavirus yesterday at the health department. He was vaccinated but did not receive his booster yet. He does meet criteria for monoclonal antibodies infusion. He tolerated the infusion without any difficulties. Vital signs are stable. Patient states he is feeling better already. Oxygen saturation is 98% on room air. He will be discharged home and directed to self quarantine for 10 days from symptom onset. Take vitamin C, vitamin D and zinc to improve immune health and increase his fluid intake. Tylenol for pain. Return to the emergency room with any new or worsening symptoms and follow-up with the primary care doctor in 1 week. - Lab Data Lab Results 05/28/21 Range/Units 19:37 Coronavirus (PCR) Detected A (Not Detectd) Disposition Clinical Impression: COVID-19 Disposition: HOME SELF-CARE Condition: Good Instructions (If sedation given, give patient instructions): Coronavirus Disease 2019 (COVID-19), Acute Headache (ED) Additional Instructions: Increase your fluid intake. You can take vitamin C, vitamin D and zinc to improve immune health. Follow-up with your primary care doctor. It is recommended by the CDC to wait 90 days after receiving monoclonal antibody infusion to get your booster shot. Return to the emergency room with any new or concerning symptoms. Is patient prescribed a controlled substance at d/c from ED?: No Referrals: Adam Live III, MD [Primary Care Provider] - 1-2 days Time of Disposition: 22:29
[2021-05-28 21:35] VITALS: RESP 18; TEMP 97.9
[2021-05-28 22:44] VITALS: BP 134/84; PULSE 92
== END 2021-05-28 22:43 | disposition home or self-care (01) ==
LOC: EC 18:51
DX: U07.1 COVID-19 (principal); E11.9 Type 2 diabetes mellitus without complications; I10 Essential (primary) hypertension; I25.2 Old myocardial infarction; E78.5 Hyperlipidemia, unspecified; Z87.891 Personal history of nicotine dependence; Z79.84 Long term (current) use of oral hypoglycemic drugs; Z79.82 Long term (current) use of aspirin; Z79.899 Other long term (current) drug therapy
CPT/HCPCS: 87635; 99284; 96374; 96361; J2405; Q0247

== ENCOUNTER → 2021-12-27 | Outpatient (CLI) | payer MEDICARE, OTHER ==
--- NOTE | 2021-12-27 12:55 | USB ---
Patient History: Mother had breast cancer, age 84. Findings: The axilla of the right breast was scanned. No solid or cystic masses are identified targeted ultrasound left axilla. Overall Assessment: Negative, BI-RAD 1 Electronically signed and approved by: Shola Juárez M.D.
== END | disposition home or self-care (01) ==
LOC: RADUSWWP 12:15
PROVIDERS: ATTEND Family Medicine
DX: N63.32 Unspecified lump in axillary tail of the left breast (principal); Z80.3 Family history of malignant neoplasm of breast

== ENCOUNTER → 2022-01-04 | Outpatient (CLI) | payer MEDICARE, OTHER ==
--- NOTE | 2022-01-05 07:13 | MR ---
MRI CERVICAL SPINE: CLINICAL HISTORY: Spondylosis with myelopathy. TECHNIQUE: Multiplanar, multisequence imaging of the cervical spine is performed without IV contrast. COMPARISON: None. FINDINGS: Sagittal images of the cervical spine show the craniocervical junction to appear within nor mal limits. The cervical and upper thoracic spinal cord is normal in course, caliber, and signal. Sl ight grade 1 retrolisthesis C3 on C4, C4 on C5, and C5 on C6 is present. The vertebral body and intr avertebral disk heights are normal. Mild to moderate multilevel anterior spurring. There is round 8 m m lesion involving the anterior superior C2 sagittal image 7 with some diminished signal superior to this. Follow up at this level advised. Axial images at C2-C3 level show posterior spurring and uncovertebral facet degenerative changes caus ing asymmetric mild to moderate left sided neural foraminal narrowing. Mild effacement anterior theca l sac. Axial images at C3-C4 levels with posterior spur disc complex effacing anterior thecal sac and causin g moderate to advanced right and mild to moderate left-sided neural foraminal narrowing. Axial images at C4-C5 level show focal central disc protrusion mildly facing anterior thecal sac ritika g with uncovertebral facet degenerative changes causing mild right and moderate left-sided neural for aminal narrowing. Axial images at C5-C6 level shows broad-based right paracentral disc protrusion effacing anterior the anderson sac and causing moderate to advanced right greater than left bilateral neural foraminal narrowing . Axial images at C6-C7 level shows mild broad-based posterior disc protrusion causing mild left greate r than right bilateral neural foraminal narrowing. Axial images at C7-T1 level appear within normal limits. IMPRESSION: There is multilevel spondylolisthesis and degenerative changes in the cervical spine as d etailed above. Osseous changes to the C2 vertebra are present, advise follow CT to further evaluate f or bony replacement and/or destruction.
== END | disposition home or self-care (01) ==
LOC: RADMRIMAIN 20:45
PROVIDERS: ATTEND Neurological Surgery
DX: M47.12 Other spondylosis with myelopathy, cervical region (principal); M50.023 Cervical disc disorder at C6-C7 level with myelopathy
CPT/HCPCS: 72141

== ENCOUNTER 2022-04-24 10:31 | Emergency (ER) | payer MEDICARE, OTHER ==
[2022-04-24 10:48] VITALS: TEMP 97.9
--- NOTE | 2022-04-24 12:37 | ED ---
General Adult HPI - General Chief complaint: Chest Pain Stated complaint: chest pain Time Seen by Provider: 04/24/22 12:00 Source: patient, RN notes reviewed, old records reviewed Mode of arrival: ambulatory Limitations: no limitations - History of Present Illness Initial comments: This is a 71-year-old male with past medical history significant for diabetes hypertension high cholesterol and previous cardiac stenting. Patient comes in today because she said the last 4 days he's been having a lot of congestion and coughing and he states anytime he lies down he feels like his throat is getting full of fluid. Patient states he has had some chest achiness and is been constant for the last few days but he states this does not feel at all like his heart pain. Patient states he does feel short of breath as well. Patient states he thought he would just get better on its own but he is unable to lie flat so he decided to come to the emergency department. Patient denies any headache patient denies numbness weakness per patient lightheadedness or dizziness. Patient denies any abdominal pain patient's nausea vomiting diarrhea. - Related Data Home Medications Medication Instructions Recorded Confirmed Aspirin EC [Ecotrin] 81 mg PO DAILY 06/29/14 04/24/22 Loratadine [Claritin] 10 mg PO DAILY 06/29/14 04/24/22 Pantoprazole Sodium 40 mg PO DAILY 06/29/14 04/24/22 valACYclovir HCL [Valtrex] 500 mg PO DAILY 06/29/14 04/24/22 Doxazosin Mesylate [Cardura] 4 mg PO HS 03/08/17 04/24/22 Empagliflozin [Jardiance] 25 mg PO DAILY 03/08/17 04/24/22 aMILoride-HCTZ 5-50 mg [Moduretic 1 tab PO DAILY 03/08/17 04/24/22 5-50] Ergocalciferol [Vitamin D2 (1250 1,250 mcg PO Q14D 04/24/22 04/24/22 Mcg = [id number] Iu)] Evolocumab [Repatha Sureclick] 140 mg SQ Q14D 04/24/22 04/24/22 HYDROcodone/APAP 10-325MG [[place] 1 tab PO QID 04/24/22 04/24/22 10-325] Insulin Aspart [NovoLOG Flexpen] See Protocol SQ AC-TID 04/24/22 04/24/22 Insulin Glargine,Hum.rec.anlog 32 units SQ DAILY 04/24/22 04/24/22 [Lantus Solostar Pen] Allergies Allergy/AdvReac Type Severity Reaction Status Date / Time atorvastatin calcium Allergy Rash/Hives Verified 04/24/22 13:06 [From Lipitor] furosemide [From Lasix] Allergy Rash/Hives Verified 04/24/22 13:06 heparin Allergy Unknown Verified 04/24/22 13:06 ibuprofen Allergy Rash/Hives Verified 04/24/22 13:06 metformin Allergy Unknown Verified 04/24/22 13:06 metoprolol succinate Allergy Unknown Verified 04/24/22 13:06 [From Toprol XL] niacin Allergy Unknown Verified 04/24/22 13:06 Sulfa (Sulfonamide Allergy Rash/Hives Verified 04/24/22 13:06 Antibiotics) amoxicillin AdvReac Nausea & Verified 04/24/22 13:06 Vomiting & Diarrhea glyburide AdvReac Nausea & Verified 04/24/22 13:06 Vomiting Penicillins AdvReac Nausea & Verified 04/24/22 13:06 Vomiting & Diarrhea Review of Systems ROS Statement: Those systems with pertinent positive or pertinent negative responses have been documented in the HPI. ROS Other: All systems not noted in ROS Statement are negative. Past Medical History Past Medical History: Cancer, CVA/TIA, Diabetes Mellitus, Hyperlipidemia, Hypertension, Myocardial Infarction ([place]), Prostate Disorder Additional Past Medical History / Comment(s): chronic left leg pain, prostate cancer History of Any Multi-Drug Resistant Organisms: None Reported Past Surgical History: Appendectomy, Back Surgery, Cholecystectomy, Heart Catheterization With Stent, Orthopedic Surgery Additional Past Surgical History / Comment(s): finger, paritial right knee; 4 cardiac stents Past Psychological History: No Psychological Hx Reported Smoking Status: Former smoker Past Alcohol Use History: None Reported Past Drug Use History: None Reported General Exam - General Exam Comments Initial Comments: GENERAL: Patient is well-developed and well-nourished. Patient is nontoxic and well- hydrated and is in mild distress. ENT: Neck is soft and supple. No significant lymphadenopathy is noted. Oropharynx is clear. Moist mucous membranes. Neck has full range of motion without eliciting any pain. EYES: The sclera were anicteric and conjunctiva were pink and moist. Extraocular movements were intact and pupils were equal round and reactive to light. Eyelids were unremarkable. PULMONARY: Unlabored respirations. Good breath sounds bilaterally. No audible rales rho nchi or wheezing was noted. CARDIOVASCULAR: There is a regular rate and rhythm without any murmurs gallops or rubs. ABDOMEN: Soft and nontender with normal bowel sounds. SKIN: Skin is clear with no lesions or rashes and otherwise unremarkable. NEUROLOGIC: Patient is alert and oriented x3. Cranial nerves II through XII are grossly intact. Motor and sensory are also intact. Normal speech, volume and content. Symmetrical smile. MUSCULOSKELETAL: Normal extremities with adequate strength and full range of motion. LYMPHATICS: No significant lymphadenopathy is noted PSYCHIATRIC: Normal psychiatric evaluation. Limitations: no limitations Course Vital Signs 04/24/22 10:46 Temperature 97.9 F Pulse Rate 99 Respiratory 22 Rate Blood Pressure 106/80 O2 Sat by Pulse 96 Oximetry Medical Decision Making - Medical Decision Making EKG was interpreted by myself. EKG shows sinus rhythm at 79 bpm AR interval 166 dresses 122 QT interval 43 QTC is 438. Patient's EKG shows no ST segment elevation or depression. Was pt. sent in by a medical professional or institution? @ -No Did you speak to anyone other than the patient for history? @ - gave some of his past medical history. Did you review nursing and triage notes? @ -No Were old charts reviewed? @ -No Differential Diagnosis? @ -Differential Chest Pain: Stable Angina, Unstable Angina, STEMI, NSTEMI, Musculoskeletal, Esophageal Spasm, GERD, Cholecystitis, Pancreatitis, Zoster, this is not meant to be an all-inclusive list. EKG interpreted by me (3pts min.)? @ -As above X-rays interpreted by me (1pt min.)? @ -X-ray was interpreted by myself. Chest x-ray shows no acute abnormality. CT interpreted by me (1pt min.)? @ -None U/S interpreted by me (1pt. min.)? @ -None What testing was considered but not performed? (CT, X-rays, U/S, labs)? Why? @ -No What meds were considered but not given? Why? @ -No Did you discuss the management of the patient with other professionals? @ -No Did you reconcile home meds? @ -No Was smoking cessation discussed for >3mins.? @ -No Was critical care preformed (if so, how long)? @ -No Were there social determinants of health that impacted care today? How? (Homelessness, low income, unemployed, alcoholism, drug addiction, transport ation, low edu. Level, literacy, decrease access to med. care, snf, rehab)? @ -No Was there de-escalation of care discussed even if they declined? (Discuss DNR or withdrawal of care, Hospice)? @ -No What co-morbidities impacted this encounter? (DM, HTN, Smoking, COPD, CAD, Cancer, CVA, Hep., AIDS, mental health diagnosis, sleep apnea, morbid obesity)? @ -Diabetes hypertension and previous MIs. Directed or workup on this patient to rule out cardiac causes Was patient admitted / discharged? @ -Patient will be discharged. Patient is influenza A. Patient states the pain is not at all like previous cardiac pain. Patient states the pain is been there around the clock for the last few days and it's more of an achiness Undiagnosed new problem with uncertain prognosis? @ -None Drug Therapy requiring intensive monitoring for toxicity (Heparin, Nitro, Insulin, Cardizem)? @ -None Were any procedures done? @ -None Diagnosis/symptom? @ -Influenza a Acute, or Chronic, or Acute on Chronic? @ -Acute Uncomplicated (without systemic symptoms) or Complicated (systemic symptoms)? @ -Uncomplicated Side effects of treatment? @ -None Exacerbation, Progression, or Severe Exacerbation] @ -No Poses a threat to life or bodily function? @ -No - Lab Data Result diagrams: 04/24/22 12:37 04/24/22 12:37 Lab Results 04/24/22 04/24/22 04/24/22 Range/Units 12:37 12:37 12:37 WBC 4.1 (3.8-10.6) k/uL RBC 5.87 (4.30-5.90) m/uL Hgb 18.2 H (13.0-17.5) gm/dL Hct 50.9 (39.0-53.0) % MCV 86.7 (80.0-100.0) fL MCH 31.1 (25.0-35.0) pg MCHC 35.8 (31.0-37.0) g/dL RDW 12.9 (11.5-15.5) % Plt Count 131 L (150-450) k/uL MPV 9.9 Neutrophils % 59 % Lymphocytes % 26 % Monocytes % 10 % Eosinophils % 2 % Basophils % 1 % Neutrophils # 2.4 (1.3-7.7) k/uL Lymphocytes # 1.1 (1.0-4.8) k/uL Monocytes # 0.4 (0-1.0) k/uL Eosinophils # 0.1 (0-0.7) k/uL Basophils # 0.1 (0-0.2) k/uL PT 10.0 (9.0-12.0) sec INR 0.9 (<1.2) APTT 25.6 (22.0-30.0) sec Sodium 134 L (137-145) mmol/L Potassium 3.3 L (3.5-5.1) mmol/L Chloride 94 L (98-107) mmol/L Carbon Dioxide 28 (22-30) mmol/L Anion Gap 12 mmol/L BUN 13 (9-20) mg/dL Creatinine 0.76 (0.66-1.25) mg/dL Est GFR (CKD-EPI)AfAm >90 (>60 ml/min/1.73 sqM) Est GFR (CKD-EPI)NonAf >90 (>60 ml/min/1.73 sqM) Glucose 329 H (74-99) mg/dL Calcium 9.1 (8.4-10.2) mg/dL Magnesium 1.8 (1.6-2.3) mg/dL Total Bilirubin 0.8 (0.2-1.3) mg/dL AST 23 (17-59) U/L ALT 30 (4-49) U/L Alkaline Phosphatase 124 (38-126) U/L Troponin I (0.000-0.034) ng/mL NT-Pro-B Natriuret Pep pg/mL Total Protein 6.7 (6.3-8.2) g/dL Albumin 4.4 (3.5-5.0) g/dL Influenza Type A (PCR) (Not Detectd) Influenza Type B (PCR) (Not Detectd) RSV (PCR) (Not Detectd) SARS-CoV-2 (PCR) (Not Detectd) 04/24/22 04/24/22 04/24/22 Range/Units 12:37 12:38 12:40 WBC (3.8-10.6) k/uL RBC (4.30-5.90) m/uL Hgb (13.0-17.5) gm/dL Hct (39.0-53.0) % MCV (80.0-100.0) fL MCH (25.0-35.0) pg MCHC (31.0-37.0) g/dL RDW (11.5-15.5) % Plt Count (150-450) k/uL MPV Neutrophils % % Lymphocytes % % Monocytes % % Eosinophils % % Basophils % % Neutrophils # (1.3-7.7) k/uL Lymphocytes # (1.0-4.8) k/uL Monocytes # (0-1.0) k/uL Eosinophils # (0-0.7) k/uL Basophils # (0-0.2) k/uL PT (9.0-12.0) sec INR (<1.2) APTT (22.0-30.0) sec Sodium (137-145) mmol/L Potassium (3.5-5.1) mmol/L Chloride (98-107) mmol/L Carbon Dioxide (22-30) mmol/L Anion Gap mmol/L BUN (9-20) mg/dL Creatinine (0.66-1.25) mg/dL Est GFR (CKD-EPI)AfAm (>60 ml/min/1.73 sqM) Est GFR (CKD-EPI)NonAf (>60 ml/min/1.73 sqM) Glucose (74-99) mg/dL Calcium (8.4-10.2) mg/dL Magnesium (1.6-2.3) mg/dL Total Bilirubin (0.2-1.3) mg/dL AST (17-59) U/L ALT (4-49) U/L Alkaline Phosphatase (38-126) U/L Troponin I <0.012 (0.000-0.034) ng/mL NT-Pro-B Natriuret Pep 109 pg/mL Total Protein (6.3-8.2) g/dL Albumin (3.5-5.0) g/dL Influenza Type A (PCR) Detected A (Not Detectd) Influenza Type B (PCR) Not Detected (Not Detectd) RSV (PCR) Not Detected (Not Detectd) SARS-CoV-2 (PCR) Not Detected (Not Detectd) Disposition Clinical Impression: Influenza A Disposition: HOME SELF-CARE Condition: Good Instructions (If sedation given, give patient instructions): Influenza (ED) Is patient prescribed a controlled substance at d/c from ED?: No Referrals: Adam Live III, MD [Primary Care Provider] - 1-2 days Time of Disposition: 14:15
--- NOTE | 2022-04-24 12:53 | XR ---
EXAMINATION TYPE: XR chest 2V DATE OF EXAM: 04/24/2022 COMPARISON: 01/31/2021 HISTORY: 71-year-old male with chest pain TECHNIQUE: PA and lateral views FINDINGS: Heart normal size. Aorta and pulmonary vasculature are within normal limits. Mild interstitial promin ence is unchanged. Some strandy atelectasis at the lower lungs. Nipple shadow at the right base. [facility] throughout the mid and lower thoracic spine. No consolidation or pleural effusion. IMPRESSION: Chronic changes without acute process seen.
[2022-04-24 13:00] LABS: ALT 30 U/L (4-49); AST 23 U/L (17-59); African American GFR (CKD) >90 (>60 ml/min/1.73 sqM); Albumin 4.4 g/dL (3.5-5.0); Alkaline Phosphatase 124 U/L (38-126); Anion Gap 12 mmol/L; Blood Urea Nitrogen 13 mg/dL (9-20); Calcium 9.1 mg/dL (8.4-10.2); Carbon Dioxide 28 mmol/L (22-30); Chloride 94 mmol/L (98-107); Glucose 329 mg/dL (74-99); Magnesium 1.8 mg/dL (1.6-2.3); Non-African American GFR(CKD) >90 (>60 ml/min/1.73 sqM); Potassium 3.3 mmol/L (3.5-5.1); Sodium 134 mmol/L (137-145); Total Bilirubin 0.8 mg/dL (0.2-1.3); Total Protein 6.7 g/dL (6.3-8.2)
[2022-04-24 13:03] LABS: Basophils # (A) 0.1 k/uL (0-0.2); Basophils % (A) 1 %; Eosinophils # (A) 0.1 k/uL (0-0.7); Eosinophils % (A) 2 %; HCT 50.9 % (39.0-53.0); HGB 18.2 gm/dL (13.0-17.5); INR 0.9 (<1.2); Lymphocytes # (A) 1.1 k/uL (1.0-4.8); Lymphocytes % (A) 26 %; MCH 31.1 pg (25.0-35.0); MCHC 35.8 g/dL (31.0-37.0); MCV 86.7 fL (80.0-100.0); Mean Platelet Volume 9.9; Monocytes # (A) 0.4 k/uL (0-1.0); Monocytes % (A) 10 %; Neutrophils # (A) 2.4 k/uL (1.3-7.7); Neutrophils % (A) 59 %; Partial Thromboplastin Time 25.6 sec (22.0-30.0); Platelet Count 131 k/uL (150-450); RBC 5.87 m/uL (4.30-5.90); RDW 12.9 % (11.5-15.5); WBC 4.1 k/uL (3.8-10.6)
[2022-04-24 15:17] VITALS: BP 148/85; PULSE 76; RESP 18
== END 2022-04-24 15:18 | disposition home or self-care (01) ==
LOC: EC 10:31
DX: J10.1 Influenza due to other identified influenza virus with other respiratory manifestations (principal); I10 Essential (primary) hypertension; G45.9 Transient cerebral ischemic attack, unspecified; E11.9 Type 2 diabetes mellitus without complications; I25.2 Old myocardial infarction; Z87.891 Personal history of nicotine dependence; Z20.822 Contact with and (suspected) exposure to COVID-19; Z79.82 Long term (current) use of aspirin; Z79.4 Long term (current) use of insulin; Z79.899 Other long term (current) drug therapy; Z88.2 Allergy status to sulfonamides; Z88.0 Allergy status to penicillin; Z88.8 Allergy status to other drugs, medicaments and biological substances; Z88.6 Allergy status to analgesic agent
CPT/HCPCS: 36415; 71046; 80053; 83735; 83880; 84484; 85025; 85610; 85730; 87636; 93005; 99285

== ENCOUNTER → 2022-08-09 | Outpatient (CLI) | payer MEDICARE, OTHER ==
--- NOTE | 2022-08-09 08:52 | MM ---
Reason for Exam: Clinical finding. Indicated Problems: Pain of the left side for 1 Month(s). Patient History: Mother had breast cancer, age 84. Tissue Density: The breast tissue is heterogeneously dense. This may lower the sensitivity of mammography. Findings: Analyzed By CAD. Pattern is slightly asymmetric with greater parenchymal tissue under the left nipple compared to the right. The pattern however appears typical for gynecomastia. Given the patient's symptoms, additional evaluation with ultrasound is recommended. No suspicious groups of microcalcifications, spiculated or lobular masses, architectural distortion or other secondary signs of malignancy are mammographically apparent. Overall Assessment: Incomplete: need additional imaging evaluation, BI-RAD 0 Management: Diagnostic Breast Ultrasound of the left breast. A negative mammogram report should not preclude additional follow up of suspicious palpable abnormalities. Patient should continue monthly self breast exam. A clinical breast exam by your physician is recommended on an annual basis and results should be correlated with mammographic findings. Electronically signed and approved by: Darrius Morales D.O. Radiologis
--- NOTE | 2022-08-09 09:16 | USB ---
Reason for Exam: Clinical finding. Patient History: Mother had breast cancer, age 84. Prior Study Comparison: 12/27/2021 Left US breast axilla LT, [facility]. Findings: The whole breast of the left breast, the axilla of the left breast and the retroareolar of both breasts were scanned. No solid or cystic masses are identified. Left axillary lymph node is present. No cortical thickening is evident. Clinical management recommended. Overall Assessment: Benign, BI-RAD 2 Electronically signed and approved by: Darrius Morales D.O. Radiologis
[2022-08-09 10:08] LABS: African American GFR (CKD) >90 (>60 ml/min/1.73 sqM); Blood Urea Nitrogen 14 mg/dL (9-20); Non-African American GFR(CKD) >90 (>60 ml/min/1.73 sqM)
--- NOTE | 2022-08-09 11:01 | CT ---
EXAMINATION TYPE: CT chest w con CT DLP: 616 mGycm, Automated exposure control for dose reduction was used. DATE OF EXAM: 08/09/2022 10:53 AM COMPARISON: CT chest 11/03/2019. CLINICAL INDICATION:Male, 71 years old with history of N64.4; left side chest pain TECHNIQUE: Multiple axial images were obtained through the chest. Sagittal and coronal reformats were created for review. Contrast used:100 mL of Isovue 300 with IV Contrast Oral contrast used: none. FINDINGS: LUNGS/ PLEURA: No evidence of focal consolidation, pneumothorax or pleural effusion. AIRWAY: Patent and unremarkable. HEART: The heart is within normal limits for size there is moderate to severe coronary artery calcifi cations. MEDIASTINUM: No gross evidence of adenopathy. VASCULATURE: No aortic aneurysm. Visualized central pulmonary vasculature is patent without evidence for filling defect to suggest pulmonary embolus. MUSCULOSKELETAL: No acute osseous abnormalities, mild multilevel disc degeneration changes throughout the spine. SOFT TISSUES/LYMPH NODES: Bilateral gynecomastia changes. LOWER NECK: No significant findings. UPPER ABDOMEN: Diffuse low-attenuation to the liver parenchyma. Right hepatic lobe cyst. Large stool burden throughout the colon. Scattered colonic diverticula are present in the gallbladder surgically absent. IMPRESSION: No evidence for acute thoracic process. No evidence for fracture. No evidence for a filling defect in the central pulmonary vasculature to suggest pulmonary embolus. The ribs appear intact. Hepatic steatosis.
== END | disposition home or self-care (01) ==
LOC: RADMAMWWP 08:05
PROVIDERS: ATTEND Internal Medicine Hematology & Oncology
DX: C61 Malignant neoplasm of prostate (principal); K76.0 Fatty (change of) liver, not elsewhere classified; D75.1 Secondary polycythemia; N64.4 Mastodynia; G47.30 Sleep apnea, unspecified; R06.00 Dyspnea, unspecified; Z80.3 Family history of malignant neoplasm of breast
CPT/HCPCS: 82565; 84520; 77066; 76641; 71260; 36415; G0279; Q9967; 77062

== ENCOUNTER 2022-09-26 17:45 | Emergency (ER) | payer MEDICARE, OTHER ==
--- NOTE | 2022-09-26 20:56 | XR ---
EXAMINATION TYPE: XR foot complete bilateral DATE OF EXAM: 09/26/2022 8:38 PM INDICATION: Patient age:Male; 71 years old; Reason for study: fall; COMPARISON: None TECHNIQUE: Bilateral feet was examined in the AP, oblique, and lateral projections. FINDINGS: No evidence of any acute osseous pathology. No evidence of soft tissue swelling. Scattered multifoca l bilateral osteoporosis with joint space narrowing and osteophyte formation. Minimal plantar calcane al spurring. IMPRESSION: 1. No evidence of acute fracture of either foot. 2. Multifocal osteoarthrosis throughout the feet.
--- NOTE | 2022-09-26 21:44 | XR ---
EXAMINATION TYPE: XR Hip LT and AP Pelvis DATE OF EXAM: 09/26/2022 9:34 PM INDICATION: Patient age:Male; 71 years old; Reason for study: fall; COMPARISON: None. TECHNIQUE: The left hip was examined in the frontal and lateral projections and a AP pelvis. FINDINGS: No evidence for acute process, joint dislocation or significant soft tissue swelling. Osteo phyte formation of the superior acetabulum of the hips. Fixation hardware of the lower spine is intac t. IMPRESSION: 1. No evidence for acute process. 2. Mild hip osteoarthrosis.
--- NOTE | 2022-09-26 21:53 | ED ---
Fall HPI - General Chief Complaint: Fall Stated Complaint: fall Time Seen by Provider: 09/26/22 19:45 Source: patient Mode of arrival: ambulatory - History of Present Illness Initial Comments: 8-year-old male presenting with chief complaint of bilateral foot pain and left hip pain after a fall. Patient had a trip and fall off of his porch that occurred 2 days ago. He has had persistent bilateral foot pain and left hip pain. He is still able to ambulate evening. No numbness or tingling. No weakness. No obvious deformity. He states that during the fall he may have hit his head, no loss of consciousness or blood thinners. - Related Data Home Medications Medication Instructions Recorded Confirmed Aspirin EC [Ecotrin] 81 mg PO DAILY 06/29/14 04/24/22 Loratadine [Claritin] 10 mg PO DAILY 06/29/14 04/24/22 Pantoprazole Sodium 40 mg PO DAILY 06/29/14 04/24/22 valACYclovir HCL [Valtrex] 500 mg PO DAILY 06/29/14 04/24/22 Doxazosin Mesylate [Cardura] 4 mg PO HS 03/08/17 04/24/22 Empagliflozin [Jardiance] 25 mg PO DAILY 03/08/17 04/24/22 aMILoride-HCTZ 5-50 mg [Moduretic 1 tab PO DAILY 03/08/17 04/24/22 5-50] Ergocalciferol [Vitamin D2 (1250 1,250 mcg PO Q14D 04/24/22 04/24/22 Mcg = 72909 Iu)] Evolocumab [Repatha Sureclick] 140 mg SQ Q14D 04/24/22 04/24/22 HYDROcodone/APAP 10-325MG [Bowman 1 tab PO QID 04/24/22 04/24/22 10-325] Insulin Aspart [NovoLOG Flexpen] See Protocol SQ AC-TID 04/24/22 04/24/22 Insulin Glargine,Hum.rec.anlog 32 units SQ DAILY 04/24/22 04/24/22 [Lantus Solostar Pen] Allergies Allergy/AdvReac Type Severity Reaction Status Date / Time atorvastatin calcium Allergy Rash/Hives Verified 09/26/22 18:24 [From Lipitor] furosemide [From Lasix] Allergy Rash/Hives Verified 09/26/22 18:24 heparin Allergy Unknown Verified 09/26/22 18:24 ibuprofen Allergy Rash/Hives Verified 09/26/22 18:24 metformin Allergy Unknown Verified 09/26/22 18:24 metoprolol succinate Allergy Unknown Verified 09/26/22 18:24 [From Toprol XL] niacin Allergy Unknown Verified 09/26/22 18:24 Sulfa (Sulfonamide Allergy Rash/Hives Verified 09/26/22 18:24 Antibiotics) amoxicillin AdvReac Nausea & Verified 09/26/22 18:24 Vomiting & Diarrhea glyburide AdvReac Nausea & Verified 09/26/22 18:24 Vomiting Penicillins AdvReac Nausea & Verified 09/26/22 18:24 Vomiting & Diarrhea Review of Systems ROS Statement: Those systems with pertinent positive or pertinent negative responses have been documented in the HPI. ROS Other: All systems not noted in ROS Statement are negative. Past Medical History Past Medical History: Cancer, CVA/TIA, Diabetes Mellitus, Hyperlipidemia, Hypertension, Myocardial Infarction ([place]), Prostate Disorder Additional Past Medical History / Comment(s): chronic left leg pain, prostate cancer History of Any Multi-Drug Resistant Organisms: None Reported Past Surgical History: Appendectomy, Back Surgery, Cholecystectomy, Heart Catheterization With Stent, Orthopedic Surgery Additional Past Surgical History / Comment(s): finger, paritial right knee; 4 cardiac stents Past Psychological History: No Psychological Hx Reported Smoking Status: Former smoker Past Alcohol Use History: None Reported Past Drug Use History: None Reported General Exam Limitations: no limitations General appearance: alert, in no apparent distress Head exam: Present: atraumatic, normocephalic, normal inspection Eye exam: Present: normal appearance, EOMI. Absent: scleral icterus, periorbital swelling Neck exam: Present: normal inspection, full ROM Respiratory exam: Present: normal lung sounds bilaterally. Absent: respiratory distress, wheezes, rales, rhonchi, stridor Cardiovascular Exam: Present: regular rate, normal rhythm, normal heart sounds. Absent: systolic murmur, diastolic murmur, rubs, gallop, clicks Extremities exam: Present: normal inspection, full ROM, tenderness Neurological exam: Present: alert, oriented X3, CN II-XII intact Expanded Patient oriented to: Present: person, place, time Speech: Present: fluid speech Cranial nerves: EOM's Intact: Normal Motor strength exam: RUE: 5, LUE: 5, RLE: 5, LLE: 5 Eye Response: (4) open spontaneously Motor Response: (6) obeys commands Verbal Response: (5) oriented [place] Total: 15 Psychiatric exam: Present: normal affect, normal mood Skin exam: Present: warm, dry, intact, normal color. Absent: rash Course Vital Signs 09/26/22 09/26/22 18:21 22:14 Temperature 97.4 F L 98.2 F Pulse Rate 91 73 Respiratory 20 14 Rate Blood Pressure 128/79 163/79 O2 Sat by Pulse 97 99 Oximetry Medical Decision Making - Medical Decision Making Was pt. sent in by a medical professional or institution (, PA, [facility], urgent care, hospital, or fpc...) When possible be specific @ -No Did you speak to anyone other than the patient for history (EMS, parent, family, police, friend...)? What history was obtained from this source @ -No Did you review nursing and triage notes (agree or disagree)? Why? @ -I reviewed and agree with nursing and triage notes Were old charts reviewed (outside hosp., previous admission, EMS record, old EKG, old radiological studies, urgent care reports/EKG's, fpc records)? Report findings @ -No old charts were reviewed Differential Diagnosis (chest pain, altered mental status, abdominal pain women, abdominal pain men, vaginal bleeding, weakness, fever, dyspnea, syncope, headache, dizziness, GI bleed, back pain, seizure, CVA, palpatations, mental health, musculoskeletal)? @ -Differential Musculoskeletal Muscular strain, contusion, ligament sprain, fracture, arthritis, septic arthritis, bursitis, cellulitis, muscle spasm, nerve compression, DVT, arterial occlusion, herpes zoster, electrolyte abnormality, tumor.... This is not meant to be in all inclusive list EKG interpreted by me (3pts min.). @ -As above X-rays interpreted by me (1pt min.). @ -X-rays of the bilateral feet and left hip show no fracture or dislocation. osteoarthritis is noted CT interpreted by me (1pt min.). @ -None done U/S interpreted by me (1pt. min.). @ -None done What testing was considered but not performed or refused? (CT, X-rays, U/S, labs)? Why? @ -None What meds were considered but not given or refused? Why? @ -None Did you discuss the management of the patient with other professionals (professionals i.e. , PA, [facility], lab, RT, psych nurse, social scientist, senior software engineering manager, teacher, precinct commanding officer, manager case)? Give summary @ -No Was smoking cessation discussed for >3mins.? @ -No Was critical care preformed (if so, how long)? @ -No Were there social determinants of health that impacted care today? How? (Homelessness, low income, unemployed, alcoholism, drug addiction, transportation, low edu. Level, literacy, decrease access to med. care, usp, rehab)? @ -No Was there de-escalation of care discussed even if they declined (Discuss DNR or withdrawal of care, Hospice)? DNR status @ -No What co-morbidities impacted this encounter? (DM, HTN, Smoking, COPD, CAD, Cancer, CVA, ARF, Chemo, Hep., AIDS, mental health diagnosis, sleep apnea, morbid obesity)? @ -None Was patient admitted / discharged? Hospital course, mention meds given and route, prescriptions, significant lab abnormalities, going to OR and other pertinent info. @ -8-year-old male presenting with chief complaint of feet and hip pain after fall that occurred 2 days ago. States he may have hit his head, no blood thinners or loss of consciousness. Physical examination is unremarkable. X- rays are negative for fracture dislocation. Positive for arthritis. Patient is educated on today's findings on supportive management at home. Follow-up with PCP. Report back to ER with any new or worsening symptoms. Discussed return parameters and answered all questions. Patient conveyed verbal understanding and agreed to the plan. I discussed this case in detail with my attending Dr. Tyson Undiagnosed new problem with uncertain prognosis? @ -No Drug Therapy requiring intensive monitoring for toxicity (Heparin, Nitro, Insulin, Cardizem)? @ -No Were any procedures done? @ -No Diagnosis/symptom? @ -Fall Acute, or Chronic, or Acute on Chronic? @ -Acute Uncomplicated (without systemic symptoms) or Complicated (systemic symptoms)? @ -Uncomplicated Side effects of treatment? @ -No Exacerbation, Progression, or Severe Exacerbation? @ -No Poses a threat to life or bodily function? How? (Chest pain, [place], [place], pneumonia, PE, COPD, DKA, ARF, appy, cholecystitis, CVA, Diverticulitis, Homicidal, Suicidal, threat to staff... and all critical care pts) @ -No Disposition Clinical Impression: Fall Disposition: HOME SELF-CARE Condition: Good Instructions (If sedation given, give patient instructions): Fall Prevention for Older Adults (ED), Head Injury (ED) Additional Instructions: Follow-up with PCP. Report back to ER with any new or worsening symptoms. Take Motrin and Tylenol 3 for pain control. Rest, ice, elevate as needed. Is patient prescribed a controlled substance at d/c from ED?: No Referrals: Adam Live III, MD [Primary Care Provider] - 1-2 days Time of Disposition: 21:53
[2022-09-26 22:17] VITALS: BP 163/79; PULSE 73; RESP 14; TEMP 98.2
== END 2022-09-26 22:17 | disposition home or self-care (01) ==
LOC: EC 17:45
DX: M79.672 Pain in left foot (principal); M79.671 Pain in right foot; I10 Essential (primary) hypertension; I25.2 Old myocardial infarction; E11.9 Type 2 diabetes mellitus without complications; E78.5 Hyperlipidemia, unspecified; Z79.4 Long term (current) use of insulin; Z79.82 Long term (current) use of aspirin; Z79.84 Long term (current) use of oral hypoglycemic drugs; Z79.899 Other long term (current) drug therapy; Z88.0 Allergy status to penicillin; Z88.1 Allergy status to other antibiotic agents; Z88.2 Allergy status to sulfonamides; Z88.8 Allergy status to other drugs, medicaments and biological substances; Z87.891 Personal history of nicotine dependence; Z90.49 Acquired absence of other specified parts of digestive tract; W01.0XXA Fall on same level from slipping, tripping and stumbling without subsequent striking against object, initial encounter
CPT/HCPCS: 73502; 99284

== ENCOUNTER → 2023-04-05 | Outpatient (CLI) | payer MEDICARE, OTHER ==
--- NOTE | 2023-04-05 07:40 | US ---
EXAMINATION TYPE: US Aorta Screening DATE OF EXAM: 04/05/2023 COMPARISON: NONE CLINICAL INDICATION: Male, 72 years old with history of I73.9 PERIPHERAL VASCULAR DISEASE, UNSPECIFIE D; HTN- on meds. High cholesterol. Screening. TECHNIQUE: Multiple sonographic images of the abdominal aorta are obtained. FINDINGS: EXAM MEASUREMENTS: Abdominal Aorta: Proximal: 2.4 x 2.1 cm Mid: 2.2 x 1.9 cm Distal: 1.6 x 1.6 cm Bifurcation: Right Illiac: 0.8 x 0.9 cm Left Illiac: 0.9 x 0.8 cm EQUIPMENT MAN NOTES: No AAA visualized at time of scan IMPRESSION: No evidence for abdominal aortic aneurysm
== END | disposition home or self-care (01) ==
LOC: RADUSWWP 06:58
PROVIDERS: ATTEND Family Medicine
DX: Z13.6 Encounter for screening for cardiovascular disorders (principal); I73.9 Peripheral vascular disease, unspecified; E78.00 Pure hypercholesterolemia, unspecified; I10 Essential (primary) hypertension
CPT/HCPCS: 76706

== ENCOUNTER → 2023-07-04 | Outpatient (CLI) | payer MEDICARE, OTHER ==
[2023-07-04 16:51] LABS: Basophils # (A) 0.09 X 10*3/uL (0.00-0.10); Basophils % (A) 1.4 %; Eosinophils # (A) 0.23 X 10*3/uL (0.04-0.35); Eosinophils % (A) 3.5 %; HCT 50.3 % (39.6-50.0); Lymphocytes # (A) 1.84 X 10*3/uL (0.90-5.00); Lymphocytes % (A) 28.4 %; MCH 30.4 pg (27.0-32.0); MCHC 33.8 g/dL (32.0-37.0); MCV 89.8 FL (80.0-97.0); Mean Platelet Volume 11.5 FL (9.5-12.2); Monocytes # (A) 0.57 X 10*3/uL (0.20-1.00); Monocytes % (A) 8.8 %; NRBC Per 100 WBC 0 X 10*3/uL (0.00-0.01); Neutrophils # (A) 3.72 X 10*3/uL (1.80-7.70); Neutrophils % (A) 57.4 %; Platelet Count 191 X 10*3/uL (140-440); WBC 6.48 X 10*3/uL (4.50-10.00)
[2023-07-04 17:05] LABS: BUN/Creat Ratio 20.33 Ratio (12.00-20.00); Blood Urea Nitrogen 18.3 mg/dL (9.0-27.0); Calcium 9.7 mg/dL (8.7-10.3); Carbon Dioxide 26.1 mmol/L (21.6-31.8); Chloride 98 mmol/L (96-109); Glucose 214 mg/dL (70-110); Sodium 136 mmol/L (135-145)
[2023-07-04 17:22] LABS: Appearance,Urine Clear (Clear); Bilirubin,Urine Negative (Negative); Blood,Urine Negative (Negative); Color,Urine Yellow (Yellow); Ketones,Urine Negative (Negative); Nitrite,Urine Negative (Negative); PH, Urine 5.5; Specific Gravity,Urine 1.033 (1.001-1.030); Urobilinogen,Urine 0.2
== END | disposition home or self-care (01) ==
LOC: LABPAT 12:23
PROVIDERS: ATTEND Urology
DX: Z01.812 Encounter for preprocedural laboratory examination (principal); N52.9 Male erectile dysfunction, unspecified
CPT/HCPCS: 36415; 80048; 81003; 85025; 87086

== ENCOUNTER 2023-07-11 07:17 | Day surgery (SDC) | payer MEDICARE, OTHER ==
[2023-07-06 14:20] VITALS: BMI 28.7
--- NOTE | 2023-07-10 08:55 | P.GSHP ---
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 He has been treated with Viagra-like drugs, vasoactive injections. Nothing is working at this point in time. We've discussed treatment options. He wishes to have aPenile implant. The surgical procedure has been discussed. The risks and complications including infection bleeding pain erosion lack of satisfaction complete impotence with failure have been explained and understood and accepted he comes for the surgical procedure. - Constitutional Constitutional: Denies chills, Denies fever - EENT Eyes: denies blurred vision, denies pain Ears, nose, mouth and throat: Denies headache, Denies sore throat - Cardiovascular Cardiovascular: Denies chest pain, Denies shortness of breath - Respiratory Respiratory: Denies cough, Denies 7 - Gastrointestinal Gastrointestinal: Denies abdominal pain, Denies diarrhea, Denies nausea, Denies vomiting - Genitourinary (Female) Genitourinary: Denies dysuria, Denies hematuria - Genitourinary (Male) Genitourinary: Denies dysuria, Denies hematuria - Musculoskeletal Musculoskeletal: Denies myalgias - Integumentary Integumentary: Denies pruritus, Denies rash - Neurological Neurological: Denies numbness, Denies weakness - Psychiatric Psychiatric: Denies anxiety, Denies depression - Endocrine Endocrine: Denies fatigue, Denies weight change Past Medical History Past Medical History: Cancer, CVA/TIA, Diabetes Mellitus, Hyperlipidemia, Hypertension, Myocardial Infarction ([place]), Prostate Disorder Additional Past Medical History / Comment(s): chronic left leg pain,DC 1999,2001,2003 prostate cancer Last Myocardial Infarction Date:: 2003 History of Any Multi-Drug Resistant Organisms: None Reported Past Surgical History: Appendectomy, Back Surgery, Cholecystectomy, Heart Catheterization With Stent, Orthopedic Surgery Additional Past Surgical History / Comment(s): trigger finger release, Rt. PKR; 4 cardiac stents, lumbar fusion 03/13, cyst removal from upper back & Rt. calf recently - areas healed Past Anesthesia/Blood Transfusion Reactions: No Reported Reaction Date of Last Stent Placement:: 2003 Smoking Status: Former smoker - Past Family History Mother Family Medical History: CVA/TIA Additional Family Medical History / Comment(s): "heparin caused blood clots" in mother and brother Medications and Allergies Home Medications Medication Instructions Recorded Confirmed Type Loratadine [Claritin] 10 mg PO DAILY 06/29/14 07/06/23 History Pantoprazole Sodium 40 mg PO QAM 06/29/14 07/06/23 History valACYclovir HCL [Valtrex] 500 mg PO QAM 06/29/14 07/06/23 History Doxazosin Mesylate [Cardura] 4 mg PO QAM 03/08/17 07/06/23 History Empagliflozin [Jardiance] 25 mg PO QAM 03/08/17 07/06/23 History aMILoride-HCTZ 5-50 mg [Moduretic 1 tab PO QAM 03/08/17 07/06/23 History 5-50] Evolocumab [Repatha Sureclick] 140 mg SQ Q14D 04/24/22 07/06/23 History HYDROcodone/APAP 10-325MG [Isaban 1 tab PO QID PRN 04/24/22 07/06/23 History 10-325] Insulin Glargine,Hum.rec.anlog 52 units SQ QAM 04/24/22 07/06/23 History [Lantus Solostar Pen] Ascorbic Acid [Vitamin C chew] 500 mg PO QAM 07/06/23 07/06/23 History Cholecalciferol [Vitamin D3 (10 10 mcg PO DAILY 07/06/23 07/06/23 History Mcg = 400 Iu)] Cyanocobalamin (Vitamin B-12) 1,000 mcg PO QAM 07/06/23 07/06/23 History [Vitamin B-12] Multivitamin [Multivitamins Adult 1 each PO QAM 07/06/23 07/06/23 History Gummies] Pioglitazone [Actos] 15 mg PO HS 07/06/23 07/06/23 History Allergies Allergy/AdvReac Type Severity Reaction Status Date / Time atorvastatin calcium Allergy Rash/Hives Verified 07/06/23 13:42 [From Lipitor] furosemide [From Lasix] Allergy Rash/Hives Verified 07/06/23 13:42 heparin Allergy Unknown Verified 07/06/23 13:42 ibuprofen Allergy Rash/Hives Verified 07/06/23 13:42 metformin Allergy Unknown Verified 07/06/23 13:42 metoprolol succinate Allergy Unknown Verified 07/06/23 13:42 [From Toprol XL] niacin Allergy Unknown Verified 07/06/23 13:42 Sulfa (Sulfonamide Allergy Rash/Hives Verified 07/06/23 13:42 Antibiotics) tirzepatide [From Mounjaro] Allergy Nausea & Verified 07/06/23 13:42 Vomiting & Diarrhea amoxicillin AdvReac Nausea & Verified 07/06/23 13:42 Vomiting & Diarrhea glyburide AdvReac Nausea & Verified 07/06/23 13:42 Vomiting Penicillins AdvReac Nausea & Verified 07/06/23 13:42 Vomiting & Diarrhea Surgical - Exam - General well developed, well nourished, no distress - Eyes normal ocular movement, no icteric - ENT no hearing loss, no congestion - Neck no masses, trachea midline - Respiratory normal respiratory effort, clear to auscultation - Abdomen Abdomen: soft, non tender, no guarding, no rigid, no rebound - Integumentary no rash, no abnormal pigmentation - Neurologic no disoriented, no combative - Psychiatric oriented to time, oriented to person, oriented to place, speech is normal, memory intact Assessment and Plan Assessment: Impression: 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
[2023-07-11] MEDS: LACTATED RINGERS 1,000 ML IV SCH (07:59)
[2023-07-11 08:03] LABS: Glucose,Whole Blood 173 mg/dL (70-110)
[2023-07-11] MEDS: GENTAMICIN 120 MG in SODIUM CHLORIDE 0.9% 100 ML IVPB PRN (08:11)
[2023-07-11] MEDS ORDERED: SUCCINYLCHOLINE CHLORIDE 200 MG/10 ML VIAL IV ONE (08:30)
[2023-07-11] MEDS ORDERED: MIDAZOLAM 2 MG/2 ML VIAL ONE (08:30)
[2023-07-11] MEDS ORDERED: GLYCOPYRROLATE 0.2 MG/ML 2 ML VIAL ONE (08:30)
[2023-07-11] MEDS ORDERED: ONDANSETRON 4 MG/2 ML VIAL ONE (08:30)
[2023-07-11] MEDS ORDERED: LIDOCAINE 1% INJ 10MG/ML (20 ML MDV) ONE (08:30)
[2023-07-11] MEDS ORDERED: ROCURONIUM 10 MG/ML (5 ML VIAL) IV ONE (08:30)
[2023-07-11] MEDS ORDERED: PROPOFOL 10 MG/ML 20 ML VIAL IV ONE (08:30)
[2023-07-11] MEDS ORDERED: NEOSTIGMINE 1 MG/ML 10 ML VIAL ONE (08:30)
[2023-07-11] MEDS ORDERED: fentaNYL (PF) 50 MCG/ML 2 ML AMP ONE (08:30)
[2023-07-11] MEDS: AMPICILLIN 1,000 MG in SODIUM CHLORIDE 0.9% 50 ML IVPB PRN (08:35)
[2023-07-11] MEDS: BUPIVACAINE (PF) 0.5% 30 ML VIAL SQ ONE (09:20)
[2023-07-11] MEDS: GENTAMICIN 80 MG in SODIUM CHLORIDE 0.9% 200 ML IRRIGATION ONE (09:28)
--- NOTE | 2023-07-11 10:21 | P.OP ---
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 He has eventually failed PDE 5 inhibitors, vasoactive injections. He comes for a penile implant. Description of Procedure: Patient brought to the operating suite. He is given a general anesthetic. He is prepped and draped sterilely. A midline infrapubic incision is made. I dissect down to the corpora bilaterally and clean the corpora bilaterally. I placed 3-0 PDS stitches in each corpora. Corporotomies were made bilaterally. I dissect proximally and distally with Metzenbaum scissors. I then use Hegar dilators 9-13. Of note the distal portion of the corpora are scarred from previous injection therapy. I then measured the corpora 10 cm proximal and 9 distally bilaterally. An 18 cm CX implant with 1 cm rear tip extenders will be used to. I then incised the rectus in the midline. I created a prevesical space for the reservoir pouch. I passed a hemostat through the external ring into the prevesical space. I then grasped the tubing of the reservoir and pull it back through the old and the rectus. I then placed the balloon in the prevesical space and inflated to 65 mL without difficulty. The rectus fascias and closed with running 0 PDS I then used the José Antonio needle and pass each cylinder distally through the corpora. Both cylinders seat nicely proximally and distally and inflate without buckling. I then closed the corporotomies with running 3-0 PDS. I re-inflate the cylinders and there is no evidence of buckling. I then place the pump in the right anterior scrotum in front of the testicle. I connected to the reservoir with straight connects. I once again pump the implant using the reservoir and pump and it inflates and deflates without difficulty. I irrigate thoroughly. I closed the wound with 3-0 chromic and 4-0 PDS. The patient is awakened and returned recovery room good condition. He tolerated the procedure well be discharged home upon recovery and found the office in one week.
[2023-07-11 10:28] LABS: Glucose,Whole Blood 160 mg/dL (70-110)
[2023-07-11 11:01] VITALS: TEMP 98
[2023-07-11] MEDS: HYDROcodone/APAP 10-325MG 1 EACH TAB PO ONE (11:42)
[2023-07-11] MEDS ORDERED: HYDROcodone/APAP 10-325MG 1 EACH TAB ONE (11:44)
[2023-07-11] MEDS: LACTATED RINGERS 1,000 ML IV ONE (12:30)
[2023-07-11 13:23] VITALS: BP 137/76; PULSE 73; RESP 14
== END 2023-07-11 13:44 | disposition home or self-care (01) ==
LOC: OR 07:17
PROVIDERS: ATTEND Urology
DX: N52.9 Male erectile dysfunction, unspecified (principal); E11.9 Type 2 diabetes mellitus without complications; E78.5 Hyperlipidemia, unspecified; I10 Essential (primary) hypertension; I25.2 Old myocardial infarction; Z79.84 Long term (current) use of oral hypoglycemic drugs; Z85.46 Personal history of malignant neoplasm of prostate; Z86.73 Personal history of transient ischemic attack (TIA), and cerebral infarction without residual deficits; Z87.891 Personal history of nicotine dependence; Z88.0 Allergy status to penicillin; Z88.1 Allergy status to other antibiotic agents; Z88.2 Allergy status to sulfonamides; Z88.8 Allergy status to other drugs, medicaments and biological substances; Z90.49 Acquired absence of other specified parts of digestive tract; Z95.5 Presence of coronary angioplasty implant and graft; Z79.4 Long term (current) use of insulin; Z79.899 Other long term (current) drug therapy
CPT/HCPCS: 54405; C1813; J2250; J0330; J1580 ×2; J2710; J2405; J2001; J3010; J0290; J2704

== ENCOUNTER 2023-07-11 22:34 | Emergency (ER) | payer MEDICARE, OTHER ==
[2023-07-11 22:51] VITALS: RESP 18; TEMP 98.6
--- NOTE | 2023-07-11 23:38 | ED ---
Male Urogenital HPI - General Chief complaint: Urogenital Stated complaint: urinary retention Source: EMS Mode of arrival: EMS Limitations: no limitations - History of Present Illness Initial comments: Philip 2-year-old gentleman who presents to the ER today via ambulance for difficulty in urinating. Patient underwent urologic procedure earlier in the day for penile implant. He was doing well postoperatively went home and has not been able to urinate since. - Related Data Home Medications Medication Instructions Recorded Confirmed Loratadine [Claritin] 10 mg PO DAILY 06/29/14 07/11/23 Pantoprazole Sodium 40 mg PO QAM 06/29/14 07/11/23 valACYclovir HCL [Valtrex] 500 mg PO QAM 06/29/14 07/11/23 Doxazosin Mesylate [Cardura] 4 mg PO QAM 03/08/17 07/11/23 Empagliflozin [Jardiance] 25 mg PO QAM 03/08/17 07/11/23 aMILoride-HCTZ 5-50 mg [Moduretic 1 tab PO QAM 03/08/17 07/11/23 5-50] Evolocumab [Repatha Sureclick] 140 mg SQ Q14D 04/24/22 07/11/23 HYDROcodone/APAP 10-325MG [[place] 1 tab PO QID PRN 04/24/22 07/11/23 10-325] Insulin Glargine,Hum.rec.anlog 52 units SQ QAM 04/24/22 07/11/23 [Lantus Solostar Pen] Ascorbic Acid [Vitamin C chew] 500 mg PO QAM 07/06/23 07/11/23 Cholecalciferol [Vitamin D3 (10 10 mcg PO DAILY 07/06/23 07/11/23 Mcg = 400 Iu)] Cyanocobalamin (Vitamin B-12) 1,000 mcg PO QAM 07/06/23 07/11/23 [Vitamin B-12] Multivitamin [Multivitamins Adult 1 each PO QAM 07/06/23 07/11/23 Gummies] Pioglitazone [Actos] 15 mg PO HS 07/06/23 07/11/23 Previous Rx's Medication Instructions Recorded Cephalexin [Keflex] 500 mg PO Q12HR 5 Days #10 cap 07/11/23 Allergies Allergy/AdvReac Type Severity Reaction Status Date / Time atorvastatin calcium Allergy Rash/Hives Verified 07/11/23 07:46 [From Lipitor] furosemide [From Lasix] Allergy Rash/Hives Verified 07/11/23 07:46 heparin Allergy Unknown Verified 07/11/23 07:46 ibuprofen Allergy Rash/Hives Verified 07/11/23 07:46 metformin Allergy Unknown Verified 07/11/23 07:46 metoprolol succinate Allergy Unknown Verified 07/11/23 07:46 [From Toprol XL] niacin Allergy Unknown Verified 07/11/23 07:46 Sulfa (Sulfonamide Allergy Rash/Hives Verified 07/11/23 07:46 Antibiotics) tirzepatide [From Mounjaro] Allergy Nausea & Verified 07/11/23 07:46 Vomiting & Diarrhea amoxicillin AdvReac Nausea & Verified 07/11/23 07:46 Vomiting & Diarrhea glyburide AdvReac Nausea & Verified 07/11/23 07:46 Vomiting Penicillins AdvReac Nausea & Verified 07/11/23 07:46 Vomiting & Diarrhea Review of Systems ROS Statement: Those systems with pertinent positive or pertinent negative responses have been documented in the HPI. ROS Other: All systems not noted in ROS Statement are negative. Past Medical History Past Medical History: Cancer, CVA/TIA, Diabetes Mellitus, Hyperlipidemia, Hypertension, Myocardial Infarction ([place]), Prostate Disorder Additional Past Medical History / Comment(s): chronic left leg pain, prostate cancer History of Any Multi-Drug Resistant Organisms: None Reported Past Surgical History: Appendectomy, Back Surgery, Cholecystectomy, Heart Catheterization With Stent, Orthopedic Surgery Additional Past Surgical History / Comment(s): finger, paritial right knee; 4 cardiac stents Past Alcohol Use History: None Reported General Exam - General Exam Comments Initial Comments: Physical Exam GENERAL: Patient is well-developed and well-nourished. Patient is nontoxic and well-hydrated Appears uncomfortable HENT: Normocephalic, Atraumatic. EYES: PERRL, EOMI PULMONARY: Unlabored respirations. CARDIOVASCULAR: Warm and well perfused extremities ABDOMEN: Sugical incision on low abdomen, appears well SKIN: Surgical incisions at base of penis and low abdomen : Penis and scrotum are edematous and bruised NEUROLOGIC: Alert and oriented Normal speech MUSCULOSKELETAL: Moving all extremities with no apparent injury PSYCHIATRIC: No SI/HI Limitations: no limitations Course Vital Signs 07/11/23 07/11/23 22:41 23:53 Temperature 98.6 F Pulse Rate 103 H 89 Respiratory 18 18 Rate Blood Pressure 150/78 148/83 O2 Sat by Pulse 94 L 93 L Oximetry Medical Decision Making - Medical Decision Making Was pt. sent in by a medical professional or institution (, YUE, FISH GRADER, urgent care, hospital, or snf...) When possible be specific @ -No Did you speak to anyone other than the patient for history (EMS, parent, family, police, friend...)? What history was obtained from this source @ -No Did you review nursing and triage notes (agree or disagree)? Why? @ -I reviewed and agree with nursing and triage notes Were old charts reviewed (outside hosp., previous admission, EMS record, old EKG, old radiological studies, urgent care reports/EKG's, snf records)? Report findings @ - Differential Diagnosis (chest pain, altered mental status, abdominal pain women, abdominal pain men, vaginal bleeding, weakness, fever, dyspnea, syncope, headache, dizziness, GI bleed, back pain, seizure, CVA, palpatations, mental health)? @ -Not applicable EKG interpreted by me (3pts min.). @ -As above X-rays interpreted by me (1pt min.). @ -None done CT interpreted by me (1pt min.). @ -None done U/S interpreted by me (1pt. min.). @ -None done What testing was considered but not performed or refused? (CT, X-rays, U/S, labs)? Why? @ -None What meds were considered but not given or refused? Why? @ -None Did you discuss the management of the patient with other professionals (professionals i.e. , YUE, FISH GRADER, lab, RT, psych nurse, social worker aide, clinical trials assistant, teacher, transit authority police officer, case preparer and liner)? Give summary @ -No Was smoking cessation discussed for >3mins.? @ -No Was critical care preformed (if so, how long)? @ -No Were there social determinants of health that impacted care today? How? (Homelessness, low income, unemployed, alcoholism, drug addiction, transportation, low edu. Level, literacy, decrease access to med. care, [facility], rehab)? @ -No Was there de-escalation of care discussed even if they declined (Discuss DNR or withdrawal of care, Hospice)? DNR status @ -No What co-morbidities impacted this encounter? (DM, HTN, Smoking, COPD, CAD, Cancer, CVA, ARF, Chemo, Hep., AIDS, mental health diagnosis, sleep apnea, morbid obesity)? @ -None Was patient admitted / discharged? Hospital course, mention meds given and route, prescriptions, significant lab abnormalities, going to OR and other pertinent info. @ -Discharged The patient was seen and evaluated history was obtained from the patient review of medical record patient care was discussed with his urologist Dr. Francis who stated that it is safe to attempt a Lucas catheter placement here in the ER but requested we use a small 14 Lao Lucas catheter. Patient was treated with a Uro-Jet for pain management and a 14 Lao Lucas catheter was placed without difficulty. Approximately 700 cc of dark yellow urine was drained. Patient will be placed on Keflex 500 mg twice daily for the duration of the Lucas catheter. Undiagnosed new problem with uncertain prognosis? @ -No Drug Therapy requiring intensive monitoring for toxicity (Heparin, Nitro, Insulin, Cardizem)? @ -No Were any procedures done? @ -No Diagnosis/symptom? @ -Acute urinary retention Acute, or Chronic, or Acute on Chronic? @ -Acute Uncomplicated (without systemic symptoms) or Complicated (systemic symptoms)? @ -Uncomplicated Side effects of treatment? @ -No Exacerbation, Progression, or Severe Exacerbation? @ -No Poses a threat to life or bodily function? How? (Chest pain, USA, [place], pneumonia, PE, COPD, DKA, ARF, appy, cholecystitis, CVA, Diverticulitis, Homicidal, Suicidal, threat to staff... and all critical care pts) @ -Unlikely - Lab Data Lab Results 07/11/23 Range/Units 23:47 Urine Color Light Yellow Urine Appearance Clear (Clear) Urine pH 6.0 (5.0-8.0) Ur Specific [place] 1.031 (1.001-1.035) Urine Protein Negative (Negative) Urine Glucose (UA) 4+ H (Negative) Urine Ketones Negative (Negative) Urine Blood Moderate H (Negative) Urine Nitrite Negative (Negative) Urine Bilirubin Negative (Negative) Urine Urobilinogen <2.0 (<2.0) mg/dL Ur Leukocyte Esterase Negative (Negative) Urine RBC >182 H (0-5) /hpf Urine WBC <1 (0-5) /hpf Urine Mucus Rare H (None) /hpf Disposition Clinical Impression: Urinary retention Disposition: HOME SELF-CARE Condition: Stable Prescriptions: Cephalexin [Keflex] 500 mg PO Q12HR 5 Days #10 cap Is patient prescribed a controlled substance at d/c from ED?: No Referrals: Alexey Domingo DO [Primary Care Provider] - 1-2 days Musa Loco MD [STAFF PHYSICIAN] - 1-2 days
[2023-07-11] MEDS: LIDOCAINE 2% URO-JET JELLY 5 ML KIT URETHRAL ONE (23:41)
[2023-07-11] MEDS: CEPHALEXIN 500MG STARTER PACK 4 CAP BTL PO STA (23:48)
[2023-07-12 00:03] LABS: Appearance,Urine Clear (Clear); Bilirubin,Urine Negative (Negative); Blood,Urine Moderate (Negative); Color,Urine Light Yellow; Glucose,Urine (UA) 4+ (Negative); Ketones,Urine Negative (Negative); Leukocyte Esterase,Urine Negative (Negative); Mucus,Urine Rare /hpf; Nitrite,Urine Negative (Negative); Protein,Urine Negative (Negative); RBC,Urine >182 /hpf (0-5); Specific Gravity,Urine 1.031 (1.001-1.035); Urobilinogen,Urine <2.0 mg/dL (<2.0); WBC,Urine <1 /hpf (0-5)
[2023-07-12 00:37] VITALS: BP 148/83; PULSE 89
== END 2023-07-11 23:56 | disposition home or self-care (01) ==
LOC: EC 22:34
DX: R33.9 Retention of urine, unspecified (principal); Z88.8 Allergy status to other drugs, medicaments and biological substances; Z88.2 Allergy status to sulfonamides; Z88.1 Allergy status to other antibiotic agents; Z88.6 Allergy status to analgesic agent; Z88.0 Allergy status to penicillin
CPT/HCPCS: 51702; 81001; 99283

== ENCOUNTER → 2023-12-03 | Outpatient (CLI) | payer MEDICARE, OTHER | END | disposition home or self-care (01) | LOC: LABWHC1 13:25 | DX: C61 Malignant neoplasm of prostate (principal) | CPT/HCPCS: 36415; 84153 ==

== ENCOUNTER 2024-04-16 13:42 | Emergency (ER) | payer MEDICARE, OTHER ==
--- NOTE | 2024-04-16 13:57 | ED ---
General Adult HPI - General Source: patient, family, RN notes reviewed Mode of arrival: ambulatory Limitations: no limitations <Donna Aayla - Last Filed: 04/16/24 16:19> <Ramya Copeland - Last Filed: 04/16/24 18:20> - General Chief complaint: Nausea/Vomiting/Diarrhea Stated complaint: NVD Time Seen by Provider: 04/16/24 13:56 - History of Present Illness Initial comments: This is a 73-year-old male with history of type 2 diabetes mellitus on insulin that is uncontrolled presenting to emergency room for complaint of nausea, vomiting, diarrhea, epigastric abdominal pain over the past 4 days. Patient states that on 04/11/2024 she received his first dose of Ozempic injection in office by his primary care provider for diabetes. He states that over the past 4 days he has been experiencing nausea and over the last 2 days he has been experiencing vomiting and diarrhea. He has not been unable to keep down foods or liquids over the past 2 days. States he has not been taking any of his prescribed medications over this period of time. He denies fevers, cough, rhinorrhea, congestion. Denies chest pain, shortness of breath, difficulty breathing. Denies history of DKA. Denies hematemesis, hematochezia, melena, coffee-ground emesis. (Donna Ayala) - Related Data Home Medications Medication Instructions Recorded Confirmed Loratadine [Claritin] 10 mg PO DAILY 06/29/14 07/11/23 Pantoprazole Sodium 40 mg PO QAM 06/29/14 07/11/23 valACYclovir HCL [Valtrex] 500 mg PO QAM 06/29/14 07/11/23 Doxazosin Mesylate [Cardura] 4 mg PO QAM 03/08/17 07/11/23 Empagliflozin [Jardiance] 25 mg PO QAM 03/08/17 07/11/23 aMILoride-HCTZ 5-50 mg [Moduretic 1 tab PO QAM 03/08/17 07/11/23 5-50] Evolocumab [Repatha Sureclick] 140 mg SQ Q14D 04/24/22 07/11/23 HYDROcodone/APAP 10-325MG [[place] 1 tab PO QID PRN 04/24/22 07/11/23 10-325] Insulin Glargine,Hum.rec.anlog 52 units SQ QAM 04/24/22 07/11/23 [Lantus Solostar Pen] Ascorbic Acid [Vitamin C chew] 500 mg PO QAM 07/06/23 07/11/23 Cholecalciferol [Vitamin D3 (10 10 mcg PO DAILY 07/06/23 07/11/23 Mcg = 400 Iu)] Cyanocobalamin (Vitamin B-12) 1,000 mcg PO QAM 07/06/23 07/11/23 [Vitamin B-12] Multivitamin [Multivitamins Adult 1 each PO QAM 07/06/23 07/11/23 Gummies] Pioglitazone [Actos] 15 mg PO HS 07/06/23 07/11/23 Previous Rx's Medication Instructions Recorded Cephalexin [Keflex] 500 mg PO Q12HR 5 Days #10 cap 07/11/23 Ondansetron Odt [Zofran Odt] 4 mg PO Q8HR PRN #15 tab 04/16/24 Allergies Allergy/AdvReac Type Severity Reaction Status Date / Time atorvastatin calcium Allergy Rash/Hives Verified 04/16/24 13:48 [From Lipitor] furosemide [From Lasix] Allergy Rash/Hives Verified 04/16/24 13:48 heparin Allergy Unknown Verified 04/16/24 13:48 ibuprofen Allergy Rash/Hives Verified 04/16/24 13:48 metformin Allergy Unknown Verified 04/16/24 13:48 metoprolol succinate Allergy Unknown Verified 04/16/24 13:48 [From Toprol XL] niacin Allergy Unknown Verified 04/16/24 13:48 Sulfa (Sulfonamide Allergy Rash/Hives Verified 04/16/24 13:48 Antibiotics) tirzepatide [From Mounjaro] Allergy Nausea & Verified 04/16/24 13:48 Vomiting & Diarrhea amoxicillin AdvReac Nausea & Verified 04/16/24 13:48 Vomiting & Diarrhea glyburide AdvReac Nausea & Verified 04/16/24 13:48 Vomiting Penicillins AdvReac Nausea & Verified 04/16/24 13:48 Vomiting & Diarrhea semaglutide [From Ozempic] AdvReac Nausea & Verified 04/16/24 13:48 Vomiting & Diarrhea Review of Systems ROS Other: All systems not noted in ROS Statement are negative. <Stieler,Donna - Last Filed: 04/16/24 16:19> ROS Other: All systems not noted in ROS Statement are negative. <Ramya Copeland - Last Filed: 04/16/24 18:20> ROS Statement: Those systems with pertinent positive or pertinent negative responses have been documented in the HPI. Past Medical History Past Medical History: Cancer, CVA/TIA, Diabetes Mellitus, Hyperlipidemia, Hypertension, Myocardial Infarction ([place]), Prostate Disorder Additional Past Medical History / Comment(s): chronic left leg pain, prostate cancer History of Any Multi-Drug Resistant Organisms: None Reported Past Surgical History: Appendectomy, Back Surgery, Cholecystectomy, Heart Catheterization With Stent, Orthopedic Surgery Additional Past Surgical History / Comment(s): finger, paritial right knee; 4 cardiac stents Past Psychological History: No Psychological Hx Reported Smoking Status: Former smoker Past Alcohol Use History: None Reported <Donna Ayala - Last Filed: 04/16/24 16:19> General Exam Limitations: no limitations General appearance: alert, in no apparent distress Neck exam: Present: normal inspection. Absent: tenderness, meningismus, lymphadenopathy Respiratory exam: Present: normal lung sounds bilaterally. Absent: respiratory distress, wheezes, rales, rhonchi, stridor Cardiovascular Exam: Present: regular rate, normal rhythm, normal heart sounds. Absent: systolic murmur, diastolic murmur, rubs, gallop, clicks GI/Abdominal exam: Present: soft, tenderness (epigastric), normal bowel sounds. Absent: distended, guarding, rebound, rigid Extremities exam: Present: normal inspection, full ROM, normal capillary refill. Absent: tenderness, pedal edema, joint swelling, calf tenderness Back exam: Present: normal inspection Skin exam: Present: warm, dry, intact, normal color. Absent: rash <Donna Ayala - Last Filed: 04/16/24 16:19> Course Vital Signs 04/16/24 04/16/24 04/16/24 13:49 15:30 17:39 Temperature 97.6 F 98.0 F 98.0 F Pulse Rate 100 81 77 Respiratory 20 18 16 Rate Blood Pressure 112/60 128/74 125/75 O2 Sat by Pulse 98 97 98 Oximetry Medical Decision Making - Lab Data Result diagrams: 04/16/24 15:26 12/25/24 15:26 <Donna Ayala - Last Filed: 04/16/24 16:19> - Lab Data Result diagrams: 04/16/24 15:26 04/16/24 15:26 <Ramya Copeland - Last Filed: 04/16/24 18:20> - Medical Decision Making Was pt. sent in by a medical professional or institution (, PA, MOLD CHANGER, urgent care, hospital, or [facility]...) When possible be specific @ -[No] Did you speak to anyone other than the patient for history (EMS, parent, family, police, friend...)? What history was obtained from this source @ -[No] Did you review nursing and triage notes (agree or disagree)? Why? @ -[I reviewed and agree with nursing and triage notes] Were old charts reviewed (outside hosp., previous admission, EMS record, old EKG, old radiological studies, urgent care reports/EKG's, [facility] records)? Report findings @ -[No old charts were reviewed] Differential Diagnosis (chest pain, altered mental status, abdominal pain women, abdominal pain men, vaginal bleeding, weakness, fever, dyspnea, syncope, headache, dizziness, GI bleed, back pain, seizure, CVA, palpatations, mental health, musculoskeletal)? @ -Differential Abdominal Pain Men: Appendicitis, cholecystitis, diverticulosis, ischemic bowel, pancreatitis, hepatitis, UTI, gastroenteritis, AAA, incarcerated hernia, bowel obstruction, constipation, inflammatory bowel, hepatitis, peptic ulcer disease, splenic infarction, perforated viscus, testicular torsion, this is not meant to be an all-inclusive list EKG interpreted by me (3pts min.). @ -None X-rays interpreted by me (1pt min.). @ -[None done] CT interpreted by me (1pt min.). @ -[None done] U/S interpreted by me (1pt. min.). @ -[None done] What testing was considered but not performed or refused? (CT, X-rays, U/S, labs)? Why? @ -[None] What meds were considered but not given or refused? Why? @ -[None] Did you discuss the management of the patient with other professionals (professionals i.e. , YUE, MOLD CHANGER, lab, RT, psych nurse, social media director, 2nd grade teacher, teacher, commercial account officer, nurse case manager)? Give summary @ -[No] Was smoking cessation discussed for >3mins.? @ -[No] Was critical care preformed (if so, how long)? @ -[No] Were there social determinants of health that impacted care today? How? (Homelessness, low income, unemployed, alcoholism, drug addiction, transportation, low edu. Level, literacy, decrease access to med. care, prison, rehab)? @ -[No] Was there de-escalation of care discussed even if they declined (Discuss DNR or withdrawal of care, Hospice)? DNR status @ -[No] What co-morbidities impacted this encounter? (DM, HTN, Smoking, COPD, CAD, Cancer, CVA, ARF, Chemo, Hep., AIDS, mental health diagnosis, sleep apnea, morbid obesity)? @ -[None] Was patient admitted / discharged? Hospital course, mention meds given and route, prescriptions, significant lab abnormalities, going to OR and other pertinent info. @ -73-year-old male presenting with nausea, vomiting, diarrhea. Patient's vitals are stable upon arrival. He is noted to have mild epigastric tenderness to palpation on physical exam. There is clinical signs of dehydration on physical exam therefore he is provided with IV fluids in addition to antiemetics and Protonix pending laboratory results. Patient is noted to be hyponatremic with a sodium of 131 and hyperglycemic of glucose 300. Patient is provided with additional 500mL fluid bolus and 3 units of insulin. on reevaluation, patient states that his feelings of nausea and greatly improved after medication and has had no episodes of emesis. patient is signed out to Ramya Copeland PA-C pending UA results and disposition. Undiagnosed new problem with uncertain prognosis? @ -[No] Drug Therapy requiring intensive monitoring for toxicity (Heparin, Nitro, Insulin, Cardizem)? @ -[No] Were any procedures done? @ -[No] Diagnosis/symptom? @ -[default] Acute, or Chronic, or Acute on Chronic? @ -[default] Uncomplicated (without systemic symptoms) or Complicated (systemic symptoms)? @ -[default] Side effects of treatment? @ -[No] Exacerbation, Progression, or Severe Exacerbation? @ -[No] Poses a threat to life or bodily function? How? (Chest pain, USA, [place], pneumonia, PE, COPD, DKA, ARF, appy, cholecystitis, CVA, Diverticulitis, Homicidal, Suicidal, threat to staff... and all critical care pts) @ -[No] (Mai Ayalaoe) Case signed out to me pending UA results and disposition. Urinalysis negative for signs of infection. Acetone negative. Patient's symptoms were well- controlled in the emergency department and he was tolerating oral intake. States that overall he felt much better and requested discharge home. Rx for Zofran provided. Advised he slowly advance his diet as tolerated, remain well- hydrated, and follow-up with his PCP. Patient discharged home in stable condition. Case discussed with ED attending Dr. Govea. (Ramya Copeland) - Lab Data Lab Results 04/16/24 04/16/24 04/16/24 Range/Units 14:02 15:26 15:26 WBC 7.1 (3.8-10.6) k/uL RBC 5.83 (4.30-5.90) m/uL Hgb 17.6 H (13.0-17.5) gm/dL Hct 52.3 (39.0-53.0) % MCV 89.7 (80.0-100.0) fL MCH 30.1 (25.0-35.0) pg MCHC 33.5 (31.0-37.0) g/dL RDW 12.6 (11.5-15.5) % Plt Count 183 (150-450) k/uL MPV 8.4 Neutrophils % 70 % Lymphocytes % 17 % Monocytes % 8 % Eosinophils % 2 % Basophils % 1 % Neutrophils # 4.9 (1.3-7.7) k/uL Lymphocytes # 1.2 (1.0-4.8) k/uL Monocytes # 0.6 (0-1.0) k/uL Eosinophils # 0.1 (0-0.7) k/uL Basophils # 0.1 (0-0.2) k/uL Sodium 131 L (137-145) mmol/L Potassium 3.7 (3.5-5.1) mmol/L Chloride 100 (98-107) mmol/L Carbon Dioxide 24 (22-30) mmol/L Anion Gap 7 mmol/L BUN 21 H (9-20) mg/dL Creatinine 0.94 (0.66-1.25) mg/dL Est GFR (CKD-EPI)AfAm >90 (>60 ml/min/1.73 sqM) Est GFR (CKD-EPI)NonAf 81 (>60 ml/min/1.73 sqM) Glucose 300 H (74-99) mg/dL POC Glucose (mg/dL) 335 H (70-110) mg/dL POC Glu Thoracic Medicine Physician ID Yarely Hornen Calcium 9.4 (8.4-10.2) mg/dL Phosphorus 3.0 (2.5-4.5) mg/dL Magnesium 1.9 (1.6-2.3) mg/dL Total Bilirubin 1.0 (0.2-1.3) mg/dL AST 14 L (17-59) U/L ALT 16 (4-49) U/L Alkaline Phosphatase 121 (38-126) U/L Total Protein 6.4 (6.3-8.2) g/dL Albumin 4.2 (3.5-5.0) g/dL Lipase 60 (23-300) U/L Urine Color Urine Appearance (Clear) Urine pH (5.0-8.0) Ur Specific [place] (1.001-1.035) Urine Protein (Negative) Urine Glucose (UA) (Negative) Urine Ketones (Negative) Urine Blood (Negative) Urine Nitrite (Negative) Urine Bilirubin (Negative) Urine Urobilinogen (<2.0) mg/dL Ur Leukocyte Esterase (Negative) Acetone, Qual Negative (Negative) 04/16/24 Range/Units 16:26 WBC (3.8-10.6) k/uL RBC (4.30-5.90) m/uL Hgb (13.0-17.5) gm/dL Hct (39.0-53.0) % MCV (80.0-100.0) fL MCH (25.0-35.0) pg MCHC (31.0-37.0) g/dL RDW (11.5-15.5) % Plt Count (150-450) k/uL MPV Neutrophils % % Lymphocytes % % Monocytes % % Eosinophils % % Basophils % % Neutrophils # (1.3-7.7) k/uL Lymphocytes # (1.0-4.8) k/uL Monocytes # (0-1.0) k/uL Eosinophils # (0-0.7) k/uL Basophils # (0-0.2) k/uL Sodium (137-145) mmol/L Potassium (3.5-5.1) mmol/L Chloride (98-107) mmol/L Carbon Dioxide (22-30) mmol/L Anion Gap mmol/L BUN (9-20) mg/dL Creatinine (0.66-1.25) mg/dL Est GFR (CKD-EPI)AfAm (>60 ml/min/1.73 sqM) Est GFR (CKD-EPI)NonAf (>60 ml/min/1.73 sqM) Glucose (74-99) mg/dL POC Glucose (mg/dL) (70-110) mg/dL POC Glu Thoracic Medicine Physician ID Calcium (8.4-10.2) mg/dL Phosphorus (2.5-4.5) mg/dL Magnesium (1.6-2.3) mg/dL Total Bilirubin (0.2-1.3) mg/dL AST (17-59) U/L ALT (4-49) U/L Alkaline Phosphatase (38-126) U/L Total Protein (6.3-8.2) g/dL Albumin (3.5-5.0) g/dL Lipase (23-300) U/L Urine Color Colorless Urine Appearance Clear (Clear) Urine pH 5.5 (5.0-8.0) Ur Specific [place] 1.037 H (1.001-1.035) Urine Protein Negative (Negative) Urine Glucose (UA) 4+ H (Negative) Urine Ketones Negative (Negative) Urine Blood Negative (Negative) Urine Nitrite Negative (Negative) Urine Bilirubin Negative (Negative) Urine Urobilinogen <2.0 (<2.0) mg/dL Ur Leukocyte Esterase Negative (Negative) Acetone, Qual (Negative) Disposition <Donna Ayala - Last Filed: 04/16/24 16:19> Is patient prescribed a controlled substance at d/c from ED?: No Time of Disposition: 17:43 <Ramya Copeland - Last Filed: 04/16/24 18:20> Clinical Impression: Nausea and vomiting Disposition: HOME SELF-CARE Instructions (If sedation given, give patient instructions): Acute Nausea and Vomiting (ED) Additional Instructions: Return to the emergency department with any new, worsening, or concerning symptoms. Take the Zofran up to every 8 hours as needed for nausea and vomiting. Slowly advance your diet as tolerated and remain well-hydrated. Follow-up with your primary care provider in 1 to 2 days. Prescriptions: Ondansetron Odt [Zofran Odt] 4 mg PO Q8HR PRN #15 tab PRN Reason: Nausea And Vomiting Referrals: Sukumar Chaudhary Jr, [Primary Care Provider] - 1-2 days
[2024-04-16 14:05] LABS: Glucose,Whole Blood 335 mg/dL (70-110)
[2024-04-16] MEDS: SODIUM CHLORIDE 0.9% 1,000 ML IV STA (15:27)
[2024-04-16] MEDS: ONDANSETRON 4 MG/2 ML VIAL IVP STA ×2 (15:30→17:37)
[2024-04-16] MEDS: PANTOPRAZOLE 40 MG/10 ML VIAL IVP STA (15:32)
[2024-04-16] MEDS: MORPHINE SULFATE 4 MG/ML SYRINGE IVP STA ×2 (15:36→17:38)
[2024-04-16 15:45] LABS: Basophils # (A) 0.1 k/uL (0-0.2); Basophils % (A) 1 %; Eosinophils # (A) 0.1 k/uL (0-0.7); Eosinophils % (A) 2 %; HCT 52.3 % (39.0-53.0); HGB 17.6 gm/dL (13.0-17.5); Lymphocytes # (A) 1.2 k/uL (1.0-4.8); Lymphocytes % (A) 17 %; MCH 30.1 pg (25.0-35.0); MCHC 33.5 g/dL (31.0-37.0); MCV 89.7 fL (80.0-100.0); Mean Platelet Volume 8.4; Monocytes # (A) 0.6 k/uL (0-1.0); Monocytes % (A) 8 %; Neutrophils # (A) 4.9 k/uL (1.3-7.7); Neutrophils % (A) 70 %; Platelet Count 183 k/uL (150-450); RBC 5.83 m/uL (4.30-5.90); RDW 12.6 % (11.5-15.5); WBC 7.1 k/uL (3.8-10.6)
[2024-04-16 16:05] LABS: ALT 16 U/L (4-49); AST 14 U/L (17-59); African American GFR (CKD) >90 (>60 ml/min/1.73 sqM); Albumin 4.2 g/dL (3.5-5.0); Alkaline Phosphatase 121 U/L (38-126); Anion Gap 7 mmol/L; Blood Urea Nitrogen 21 mg/dL (9-20); Calcium 9.4 mg/dL (8.4-10.2); Carbon Dioxide 24 mmol/L (22-30); Chloride 100 mmol/L (98-107); Glucose 300 mg/dL (74-99); Lipase 60 U/L (23-300); Magnesium 1.9 mg/dL (1.6-2.3); Non-African American GFR(CKD) 81 (>60 ml/min/1.73 sqM); Potassium 3.7 mmol/L (3.5-5.1); Sodium 131 mmol/L (137-145); Total Protein 6.4 g/dL (6.3-8.2)
[2024-04-16 16:08] VITALS: TEMP 98
[2024-04-16] MEDS: SODIUM CHLORIDE 0.9% 500 ML 500 ML IV STA (16:31)
[2024-04-16 16:36] LABS: Appearance,Urine Clear (Clear); Bilirubin,Urine Negative (Negative); Blood,Urine Negative (Negative); Color,Urine Colorless; Glucose,Urine (UA) 4+ (Negative); Ketones,Urine Negative (Negative); Leukocyte Esterase,Urine Negative (Negative); Nitrite,Urine Negative (Negative); PH, Urine 5.5 (5.0-8.0); Protein,Urine Negative (Negative); Specific Gravity,Urine 1.037 (1.001-1.035); Urobilinogen,Urine <2.0 mg/dL (<2.0)
[2024-04-16 17:39] VITALS: BP 125/75; PULSE 77; RESP 16
[2024-04-16] MEDS: INSULIN REGULAR 100 UNIT/ML VIAL (IV) IV ONE (17:46)
[2024-04-16] MEDS: ONDANSETRON 4 MG ODT STARTER PACK 2 TAB BTL PO STA (17:48)
== END 2024-04-16 17:51 | disposition home or self-care (01) ==
LOC: EC 13:42
DX: R11.2 Nausea with vomiting, unspecified (principal); Z87.891 Personal history of nicotine dependence; Z88.0 Allergy status to penicillin; Z88.2 Allergy status to sulfonamides; Z88.6 Allergy status to analgesic agent; Z88.8 Allergy status to other drugs, medicaments and biological substances
CPT/HCPCS: 36415; 80053; 82009; 83690; 83735; 84100; 85025; 81003; 99284; 96374; 96375 ×2; 96361; J2270; J2405; S0119; J2470

== ENCOUNTER 2024-05-12 21:54 | Emergency (ER) | payer MEDICARE, OTHER ==
[2024-05-12 22:03] VITALS: RESP 18; TEMP 97.7
--- NOTE | 2024-05-12 22:07 | ED ---
Upper Extremity HPI - General Chief Complaint: Extremity Injury, Upper Stated Complaint: Fall- L Arm Pain Time Seen by Provider: 05/12/24 22:07 Source: patient, RN notes reviewed, old records reviewed Mode of arrival: ambulatory Limitations: no limitations - History of Present Illness Initial Comments: This is a 73-year-old male to the ER for evaluation patient presents to the ER e after a fall fall from standing with left wrist pain left wrist with history of wrist surgery patient complaining of left arm pain left elbow pain left wrist pain after a fall from standing trip and fall on ice Complaint: Injury to:: left, arm, elbow, forearm, wrist -: hour(s) Other Extremity Injury: Hand: Left, Wrist: Left, Elbow: Left Handedness: left Place: work Worsens With: none Context: fall, direct blow Associated Symptoms: denies other symptoms Treatments Prior to Arrival: other (0) - Related Data Home Medications Medication Instructions Recorded Confirmed Loratadine [Claritin] 10 mg PO DAILY 06/29/14 05/12/24 Pantoprazole Sodium 40 mg PO QAM 06/29/14 05/12/24 valACYclovir HCL [Valtrex] 500 mg PO QAM 06/29/14 05/12/24 Doxazosin Mesylate [Cardura] 4 mg PO QAM 03/08/17 05/12/24 Empagliflozin [Jardiance] 25 mg PO QAM 03/08/17 05/12/24 aMILoride-HCTZ 5-50 mg [Moduretic 1 tab PO QAM 03/08/17 05/12/24 5-50] Evolocumab [Repatha Sureclick] 140 mg SQ Q14D 04/24/22 05/12/24 Insulin Glargine,Hum.rec.anlog 52 units SQ QAM 04/24/22 05/12/24 [Lantus Solostar Pen] Ascorbic Acid [Vitamin C chew] 500 mg PO QAM 07/06/23 05/12/24 Cholecalciferol [Vitamin D3 (10 10 mcg PO DAILY 07/06/23 05/12/24 Mcg = 400 Iu)] Cyanocobalamin (Vitamin B-12) 1,000 mcg PO QAM 07/06/23 05/12/24 [Vitamin B-12] Multivitamin [Multivitamins Adult 1 each PO QAM 07/06/23 05/12/24 Gummies] Pioglitazone [Actos] 15 mg PO HS 07/06/23 05/12/24 Previous Rx's Medication Instructions Recorded Cephalexin [Keflex] 500 mg PO Q12HR 5 Days #10 cap 07/11/23 Ondansetron Odt [Zofran Odt] 4 mg PO Q8HR PRN #15 tab 04/16/24 HYDROcodone/APAP 10-325MG [[place] 1 tab PO QID PRN 30 Days #120 tab 05/15/24 10-325] HYDROcodone/APAP 10-325MG [[place] 1 tab PO QID PRN 30 Days #120 tab 05/15/24 10-325] Allergies Allergy/AdvReac Type Severity Reaction Status Date / Time atorvastatin calcium Allergy Rash/Hives Verified 05/12/24 22:02 [From Lipitor] furosemide [From Lasix] Allergy Rash/Hives Verified 05/12/24 22:02 heparin Allergy Unknown Verified 05/12/24 22:02 ibuprofen Allergy Rash/Hives Verified 05/12/24 22:02 metformin Allergy Unknown Verified 05/12/24 22:02 metoprolol succinate Allergy Unknown Verified 05/12/24 22:02 [From Toprol XL] niacin Allergy Unknown Verified 05/12/24 22:02 Sulfa (Sulfonamide Allergy Rash/Hives Verified 05/12/24 22:02 Antibiotics) tirzepatide [From Mounjaro] Allergy Nausea & Verified 05/12/24 22:02 Vomiting & Diarrhea amoxicillin AdvReac Nausea & Verified 05/12/24 22:02 Vomiting & Diarrhea glyburide AdvReac Nausea & Verified 05/12/24 22:02 Vomiting Penicillins AdvReac Nausea & Verified 05/12/24 22:02 Vomiting & Diarrhea semaglutide [From Ozempic] AdvReac Nausea & Verified 05/12/24 22:02 Vomiting & Diarrhea Review of Systems ROS Statement: Those systems with pertinent positive or pertinent negative responses have been documented in the HPI. ROS Other: All systems not noted in ROS Statement are negative. Past Medical History Past Medical History: Cancer, CVA/TIA, Diabetes Mellitus, Hyperlipidemia, Hypertension, Myocardial Infarction ([place]), Prostate Disorder Additional Past Medical History / Comment(s): chronic left leg pain, prostate cancer Last Myocardial Infarction Date:: 12/2003 History of Any Multi-Drug Resistant Organisms: None Reported Past Surgical History: Appendectomy, Back Surgery, Cholecystectomy, Heart Catheterization With Stent, Orthopedic Surgery Additional Past Surgical History / Comment(s): finger, paritial right knee; 4 cardiac stents Date of Last Stent Placement:: 12/2003 Past Psychological History: No Psychological Hx Reported Smoking Status: Former smoker General Exam General appearance: alert, in no apparent distress Head exam: Present: atraumatic, normocephalic, normal inspection Eye exam: Present: normal appearance, PERRL, EOMI. Absent: scleral icterus, conjunctival injection, periorbital swelling ENT exam: Present: normal exam, mucous membranes moist Neck exam: Present: normal inspection. Absent: tenderness, meningismus, lymphadenopathy Respiratory exam: Present: normal lung sounds bilaterally. Absent: respiratory distress, wheezes, rales, rhonchi, stridor Cardiovascular Exam: Present: regular rate, normal rhythm, normal heart sounds. Absent: systolic murmur, diastolic murmur, rubs, gallop, clicks GI/Abdominal exam: Present: soft, normal bowel sounds. Absent: distended, tenderness, guarding, rebound, rigid Extremities exam: Present: normal inspection, full ROM, normal capillary refill. Absent: tenderness, pedal edema, joint swelling, calf tenderness Back exam: Present: normal inspection Neurological exam: Present: alert, oriented X3, CN II-XII intact Psychiatric exam: Present: normal affect, normal mood Skin exam: Present: warm, dry, intact, normal color. Absent: rash Course Vital Signs 05/12/24 05/12/24 21:59 23:52 Temperature 97.7 F Pulse Rate 77 68 Respiratory 18 18 Rate Blood Pressure 175/86 138/79 O2 Sat by Pulse 95 98 Oximetry - Reevaluation(s) Reevaluation #1: 05/12/24 23:40 Medical records reviewed Reevaluation #2: 05/12/24 23:40 Patient symptoms unchanged Reevaluation #3: 05/12/24 23:41 Patient informed of results questions answered Reevaluation #4: Was pt. sent in by a medical professional or institution (, PA, ACCOUNT DEVELOPMENT ASSOCIATE, urgent care, hospital, or custodial...) When possible be specific @ -no Did you speak to anyone other than the patient for history (EMS, parent, family, police, friend...)? What history was obtained from this source @ -no Did you review nursing and triage notes (agree or disagree)? Why? @ -agree Are old charts reviewed (outside hosp., previous admission, EMS record, old EKG, old radiological studies, urgent care reports/EKG's, custodial records)? Report findings @ -yes Differential Diagnosis (chest pain, altered mental status, abdominal pain women, abdominal pain men, vaginal bleeding, weakness, fever, dyspnea, syncope, headache, dizziness, GI bleed, back pain, seizure, CVA, palpatations, mental health, musculoskeletal)? @ -prior EKG interpreted by me (3pts min.). @ -no X-rays interpreted by me (1pt min.). @ -yes negative for acute disease CT interpreted by me (1pt min.). @ -no U/S interpreted by me (1pt. min.). @ -no What testing was considered but not performed or refused? (CT, X-rays, U/S, labs)? Why? @ -none What meds were considered but not given or refused? Why? @ -none Did you discuss the management of the patient with other professionals (professionals i.e. , PA, ACCOUNT DEVELOPMENT ASSOCIATE, lab, RT, psych nurse, social media marketing specialist, area relief pilot, teacher, health promotion officer, child welfare caseworker)? Give summary @ -no Was smoking cessation discussed for >3mins.? @ -no Was critical care preformed (if so, how long)? @ -no Were there social determinants of health that impacted care today? How? (Homelessness, low income, unemployed, alcoholism, drug addiction, transportation, low edu. Level, literacy, decrease access to med. care, half-way, rehab)? @ -none Was there de-escalation of care discussed even if they declined (Discuss DNR or withdrawal of care, Hospice)? DNR status @ -no What co-morbidities impacted this encounter? (DM, HTN, Smoking, COPD, CAD, Cancer, CVA, ARF, Chemo, Hep., AIDS, mental health diagnosis, sleep apnea, morbid obesity)? @ -none Was patient admitted / discharged? Hospital course, mention meds given and route, prescriptions, significant lab abnormalities, going to OR and other pertinent info. @ - 73 male to ER status post fall trip and fall on the ice with left wrist pain severe but no fracture noted on x-rays. Patient is in no acute distress and can be discharged home Discharge Undiagnosed new problem with uncertain prognosis? @ -no Drug Therapy requiring intensive monitoring for toxicity (Heparin, Nitro, Insulin, Cardizem)? @ -no Were any procedures done? @ -no Diagnosis/symptom? @ -Fall left wrist pain contusion Acute, or Chronic, or Acute on Chronic? @ -Acute Uncomplicated (without systemic symptoms) or Complicated (systemic symptoms)? @ -Complicated Side effects of treatment? @ -no Exacerbation, Progression, or Severe Exacerbation? @ -exacerbation Poses a threat to life or bodily function? How? (Chest pain, [place], [place], pneumonia, PE, COPD, DKA, ARF, appy, cholecystitis, CVA, Diverticulitis, Homicidal, Suicidal, threat to staff... and all critical care pts) @ -no Medical Decision Making - Medical Decision Making 73 male to ER status post fall trip and fall on the ice with left wrist pain severe but no fracture noted on x-rays. Patient is in no acute distress and can be discharged home - Radiology Data Radiology results: report reviewed (X-ray left wrist negative for acute disease left elbow negative for acute disease), image reviewed Disposition Clinical Impression: Contusion of left wrist, Left elbow contusion, Fall Disposition: HOME SELF-CARE Condition: Good Instructions (If sedation given, give patient instructions): Wrist Injury (ED) Is patient prescribed a controlled substance at d/c from ED?: No Referrals: Sukumar Chaudhary Jr, DO [Primary Care Provider] - 1-2 days Time of Disposition: 23:40
[2024-05-12 23:54] VITALS: BP 138/79; PULSE 68
--- NOTE | 2024-05-13 00:42 | XR ---
EXAM: XR Left Elbow Complete, 3 Views CLINICAL HISTORY: ITS.REASON XR Reason: fall TECHNIQUE: Frontal, lateral and oblique views of the left elbow. COMPARISON: No relevant prior studies available. FINDINGS: Bones/joints: Suspect trace of elbow joint effusion. Suspect osteopenia. No fracture or dislocation. Soft tissues: Unremarkable. IMPRESSION: No fracture
--- NOTE | 2024-05-13 00:43 | XR ---
EXAM: XR Left Wrist Complete, 3 Views CLINICAL HISTORY: ITS.REASON XR Reason: fall TECHNIQUE: Frontal, lateral and oblique views of the left wrist. COMPARISON: No relevant prior studies available. FINDINGS: Bones/joints: No fracture or dislocation. Suspect osteopenia. Soft tissues: Unremarkable. No radiopaque foreign body. IMPRESSION: No fracture or dislocation.
== END 2024-05-12 23:54 | disposition home or self-care (01) ==
LOC: EC 21:54
DX: S60.212A Contusion of left wrist, initial encounter (principal); S50.02XA Contusion of left elbow, initial encounter; Z87.891 Personal history of nicotine dependence; Z88.0 Allergy status to penicillin; Z88.2 Allergy status to sulfonamides; Z88.8 Allergy status to other drugs, medicaments and biological substances; W19.XXXA Unspecified fall, initial encounter
CPT/HCPCS: 99283

== ENCOUNTER → 2024-05-12 | Outpatient (CLI) | payer MEDICARE, OTHER ==
[2024-05-12 11:36] VITALS: BP 156/81; PULSE 76; RESP 16
--- NOTE | 2024-05-12 12:14 | P.PAINCN ---
History of Present Illness - History of Present Illness This is a 73-year-old pleasant gentleman pain in multiple areas of body is on chronic opioid pain medication by Dr. Woodson who has since retired. Was getting his opioid pain medication last from Dr. Arroyo who has retired also. His main pain is low back pain radiating down to bilateral lower extremities. Had back surgery done. Also has cervical spine problems for which he was suggested surgery but he does not want to go through any surgery at this time. Has got severe diabetic neuropathy in lower extremities. Normally her pain is located mostly in the low back going down to lower extremities bilaterally. Patient describes the pain as constant sharp in character. The day goes up to 10/10. He is going for at least 5 years. Any movement of the body increases his pain. Only pain relieving factor is Bullock. In the past patient had physical therapy, home exercise program, nonopioid pain medications. None of those helped his pain Bullock. Patient also relates, he was tried on gabapentin and similar medications without any help. Past Medical History Past Medical History: Cancer, CVA/TIA, Diabetes Mellitus, Hyperlipidemia, Hypertension, Myocardial Infarction ([place]), Prostate Disorder Additional Past Medical History / Comment(s): chronic left leg pain, prostate cancer Last Myocardial Infarction Date:: 12/2003 History of Any Multi-Drug Resistant Organisms: None Reported Past Surgical History: Appendectomy, Back Surgery, Cholecystectomy, Heart Catheterization With Stent, Orthopedic Surgery Additional Past Surgical History / Comment(s): finger, paritial right knee; 4 cardiac stents Date of Last Stent Placement:: 12/2003 Smoking Status: Former smoker Medications and Allergies Home Medications Medication Instructions Recorded Confirmed Type Loratadine [Claritin] 10 mg PO DAILY 06/29/14 05/12/24 History Pantoprazole Sodium 40 mg PO QAM 06/29/14 05/12/24 History valACYclovir HCL [Valtrex] 500 mg PO QAM 06/29/14 05/12/24 History Doxazosin Mesylate [Cardura] 4 mg PO QAM 03/08/17 05/12/24 History Empagliflozin [Jardiance] 25 mg PO QAM 03/08/17 05/12/24 History aMILoride-HCTZ 5-50 mg [Moduretic 1 tab PO QAM 03/08/17 05/12/24 History 5-50] Evolocumab [Repatha Sureclick] 140 mg SQ Q14D 04/24/22 05/12/24 History HYDROcodone/APAP 10-325MG [Bullock 1 tab PO QID PRN 04/24/22 05/12/24 History 10-325] Insulin Glargine,Hum.rec.anlog 52 units SQ QAM 04/24/22 05/12/24 History [Lantus Solostar Pen] Ascorbic Acid [Vitamin C chew] 500 mg PO QAM 07/06/23 05/12/24 History Cholecalciferol [Vitamin D3 (10 10 mcg PO DAILY 07/06/23 05/12/24 History Mcg = 400 Iu)] Cyanocobalamin (Vitamin B-12) 1,000 mcg PO QAM 07/06/23 05/12/24 History [Vitamin B-12] Multivitamin [Multivitamins Adult 1 each PO QAM 07/06/23 05/12/24 History Gummies] Pioglitazone [Actos] 15 mg PO HS 07/06/23 05/12/24 History Cephalexin [Keflex] 500 mg PO Q12HR 5 Days #10 cap 07/11/23 05/12/24 Rx Ondansetron Odt [Zofran Odt] 4 mg PO Q8HR PRN #15 tab 04/16/24 05/12/24 Rx Allergies Allergy/AdvReac Type Severity Reaction Status Date / Time atorvastatin calcium Allergy Rash/Hives Verified 05/12/24 11:37 [From Lipitor] furosemide [From Lasix] Allergy Rash/Hives Verified 05/12/24 11:37 heparin Allergy Unknown Verified 05/12/24 11:37 ibuprofen Allergy Rash/Hives Verified 05/12/24 11:37 metformin Allergy Unknown Verified 05/12/24 11:37 metoprolol succinate Allergy Unknown Verified 05/12/24 11:37 [From Toprol XL] niacin Allergy Unknown Verified 05/12/24 11:37 Sulfa (Sulfonamide Allergy Rash/Hives Verified 05/12/24 11:37 Antibiotics) tirzepatide [From Mounjaro] Allergy Nausea & Verified 05/12/24 11:37 Vomiting & Diarrhea amoxicillin AdvReac Nausea & Verified 05/12/24 11:37 Vomiting & Diarrhea glyburide AdvReac Nausea & Verified 05/12/24 11:37 Vomiting Penicillins AdvReac Nausea & Verified 05/12/24 11:37 Vomiting & Diarrhea semaglutide [From Ozempic] AdvReac Nausea & Verified 05/12/24 11:37 Vomiting & Diarrhea Physical Exam Vitals: Vital Signs Pulse Resp BP Pulse Ox 05/12/24 11:34 76 16 156/81 96 Intake and Output 05/11/24 05/12/24 05/12/24 22:59 06:59 14:59 Other: Weight 83.007 kg Physical Examinations : -Constitutiona : Cooperative , not in acute distress . -HEENT : nech : supple , no Lymphadenopathy , normal thyroid size . : eyes : no ptosis , no icterus, no photophobia . - neurologic : Cranial nerve II to XII intact , no focal neurological deffecit . -psychatric : alert , oriented X 3 , appropriate affect , intact judgment and insight . -Lymphatic : no Lymphadenopathy . - musculoskeltal : Lumber spine moter stegnth lower extremities ,thigh and legs 5/5 Right side , 5/5 Left side deep tendon reflexes : normal Knee Jerk , normal ankle Jerk lumber facet Loading Test =positive Right , positive Left Range of motion of the lumbar spine Flexion 20 degrees, extension 5 degrees strait leg raising test = bilaterally. Sensation to touch is significantly decreased bilateral feet. Results Results: No MRI or CT scan of lumbar spine was done in last 5 years according to patient. Assessment and Plan Plan: Assessment and plan= chronic low back pain secondary to postlaminectomy syndrome, lumbar radiculopathy, lumbar disc herniation. chronic and current use of high-risk medication (opioids) Patient has no diagnostic MRI CT done last 5 years will get MRI of lumbosacral spine without and with contrast. Patient is claustrophobic so we will try to get open MRI. Based on the MRI report possibly patient may need caudal epidural steroid injection. In regards to his opioid pain medication, he still has 3-week supply. We are expecting to get MRI report and be seen in our pain clinic within 2 weeks and then decide about the interventional procedure as mentioned above and possible opioid medication continuation. Patient denies any side effects of the current pain medication and the current treatment/medication helping the patient to do activity of daily living , Diagnoses, prognosis, treatment options, including but not limited to p hysical therapy, medication management, interventional therapies, and surgery, were discussed with the patient All the questions answered Patient was counseled not to drive or operate heavy equipment while using narcotic medication, and advised not to use alcohol or any Illicit drugs while using the narcotis. understanding that lack of compliance with any of the above instructions, w ill likely to cause discharge from, the pain service, not to renew his narcotic prescriptions MAPS Reviwed and it was apropriate . I have spent 35 minutes on patient care today. The time was used to review the medical records including relevant urine studies and Prescription history (MAPs), review of the available imaging, evaluation and examination of the patient, coordination of care with the medical staff and if applicable referring physicians, as well as creation of the medical record. Maps were checked and appropriate, opioid start talking form is on file and updated, urine drug screens of been appropriate and have been reviewed. , PQRS Measure Charge Sheet Mode of Arrival: Ambulatory - Pain Location Bilateral Lower Back Non-Pharmacological Interventions: Heat, Inactivity, Physical Therapy, Position/Reposition Pharmacological Interventions: PRN Medication, Scheduled Medication, Topical Medication PQRS Narrative: Smoking Status Former smoker Blood Pressure 156/81 Pain Intensity [Bilateral 10 Lower Back] Scale Used Numeric (1 - 10) Hx Alcohol Use (MH) No Home Medications: Ambulatory Orders Loratadine [Claritin] 10 mg PO DAILY 06/29/14 Pantoprazole Sodium 40 mg PO QAM 06/29/14 valACYclovir HCL [Valtrex] 500 mg PO QAM 06/29/14 Doxazosin Mesylate [Cardura] 4 mg PO QAM 03/08/17 Empagliflozin [Jardiance] 25 mg PO QAM 03/08/17 aMILoride-HCTZ 5-50 mg [Moduretic 5-50] 1 tab PO QAM 03/08/17 Evolocumab [Repatha Sureclick] 140 mg SQ Q14D 04/24/22 HYDROcodone/APAP 10-325MG [Bullock 10-325] 1 tab PO QID PRN 04/24/22 Insulin Glargine,Hum.rec.anlog [Lantus Solostar Pen] 52 units SQ QAM 04/24/22 Ascorbic Acid [Vitamin C chew] 500 mg PO QAM 07/06/23 Cholecalciferol [Vitamin D3 (10 Mcg = 400 Iu)] 10 mcg PO DAILY 07/06/23 Cyanocobalamin (Vitamin B-12) [Vitamin B-12] 1,000 mcg PO QAM 07/06/23 Multivitamin [Multivitamins Adult Gummies] 1 each PO QAM 07/06/23 Pioglitazone [Actos] 15 mg PO HS 07/06/23 Cephalexin [Keflex] 500 mg PO Q12HR 5 Days #10 cap 07/11/23 Ondansetron Odt [Zofran Odt] 4 mg PO Q8HR PRN #15 tab 04/16/24
== END ==
LOC: PNWHC3 10:02
PROVIDERS: ATTEND Pain Medicine Interventional Pain Medicine
DX: M96.1 Postlaminectomy syndrome, not elsewhere classified (principal); M51.16 Intervertebral disc disorders with radiculopathy, lumbar region; Z79.891 Long term (current) use of opiate analgesic; Z88.6 Allergy status to analgesic agent; Z88.0 Allergy status to penicillin; Z88.2 Allergy status to sulfonamides; Z88.8 Allergy status to other drugs, medicaments and biological substances; Z87.891 Personal history of nicotine dependence
CPT/HCPCS: 99211

== ENCOUNTER → 2024-06-30 | Outpatient (CLI) | payer MEDICARE, OTHER ==
[2024-06-30 15:07] LABS: Basophils # (A) 0.12 X 10*3/uL (0.00-0.10); Basophils % (A) 1.9 %; Eosinophils # (A) 0.31 X 10*3/uL (0.04-0.35); Eosinophils % (A) 4.9 %; HCT 47.9 % (39.6-50.0); HGB 16.4 g/dL (13.0-17.0); Lymphocytes # (A) 1.81 X 10*3/uL (0.90-5.00); Lymphocytes % (A) 28.9 %; MCH 30.4 pg (27.0-32.0); MCHC 34.2 g/dL (32.0-37.0); MCV 88.7 FL (80.0-97.0); Mean Platelet Volume 10.9 FL (9.5-12.2); NRBC Per 100 WBC 0 X 10*3/uL (0.00-0.01); Neutrophils # (A) 3.51 X 10*3/uL (1.80-7.70); Platelet Count 187 X 10*3/uL (140-440); RDW 12.7 % (11.5-14.5); WBC 6.27 X 10*3/uL (4.50-10.00)
[2024-06-30 15:51] LABS: ALT 17 U/L (10-49); AST 16 U/L (14-35); Albumin 4.3 g/dL (3.8-4.9); Albumin/Globulin Ratio 2.26 Ratio (1.60-3.17); Alkaline Phosphatase 123 U/L (41-126); BUN/Creat Ratio 11.57 Ratio (12.00-20.00); Blood Urea Nitrogen 8.1 mg/dL (9.0-27.0); Calcium 9.3 mg/dL (8.7-10.3); Carbon Dioxide 25.8 mmol/L (21.6-31.8); Chloride 101 mmol/L (96-109); Chol/HDL Ratio 3.19 Ratio; Globulin 1.9 g/dL (1.6-3.3); Glucose 275 mg/dL (70-110); LDL Cholesterol,Calculated 26.2 mg/dL (0.0-131.0); Potassium 4.1 mmol/L (3.5-5.5); Prostate Specific Antigen 1.05 ng/mL (0.000-6.500); Sodium 137 mmol/L (135-145); Total Bilirubin 0.4 mg/dL (0.3-1.2); Total Protein 6.2 g/dL (6.2-8.2)
[2024-06-30 22:46] LABS: Urine Creatinine 52.2 mg/dL (39.0-259.0)
== END | disposition home or self-care (01) ==
LOC: LABWHC1 09:01
PROVIDERS: ATTEND Family Medicine
DX: I25.10 Atherosclerotic heart disease of native coronary artery without angina pectoris (principal); E11.649 Type 2 diabetes mellitus with hypoglycemia without coma; Z85.46 Personal history of malignant neoplasm of prostate; R53.83 Other fatigue
CPT/HCPCS: 36415; 80053; 80061; 82043; 82306; 82570; 83036; 84153; 85025

== ENCOUNTER → 2024-07-21 | Outpatient (CLI) | payer MEDICARE, OTHER ==
[2024-07-21 11:12] VITALS: BP 134/78; PULSE 80; RESP 16
--- NOTE | 2024-07-21 15:20 | P.PAINPG ---
PQRS Measure Charge Sheet Comment: A 73 yr old male w at side with a history of severe and chronic LBP secondary to radiculopathy, spondylosis with facet arthropathy without myelopathy presents today for medication refills. Pain level is provoked at 7 /10 in intensity, constant, predominantly axial, localized in the lumbar spine, dull in character w occasional shooting towards the hips, LEs and feet. Pain is provoked by standing/ sitting for periods > 15 min. Pain is alleviated with Pt x 5 wks which he is currently in, medications, topical, manual massage, repositioning and rest. Oswestry axial pain score at 24. Interventional pain procedures completed include Patient is currently on [place] 10325gm #120 Patient denies any side effects of the medication(s), denies excessive drowsiness or sleepiness, denies suicidal ideation and reports that the current pain medication is helping to control the pain and improve activities of daily living. Patient denies any motor or sensory deficits. Patient denies any fever or night sweats, denies any change in the bowel movements or urination. Physical Examination: -Constitutional: Cooperative. Not in acute distress . - Neurologic: Cranial nerve II to XII intact. No focal neurological deficits. - Psychatric: Alert & oriented x 3. Matching mood & appropriate affect. Judgment and insight intact. - Musculoskeletal: Cervical spine: Muscle bulk/ tone/ strength in the bilateral upper extremities normal Vertebral body tenderness to palpation over Spurling test positive Distraction test positive Facet loading test positive TTP Thoracic spine Muscle bulk / tone/ strength in the bilateral paraspinal muscles normal Vertebral body tender to palpation over Facet loading test positive TTP Lumbar spine: Motor bulk/ tone/ strength lower extremities , thigh and legs : 5/5 Deep tendon reflexes : Normal Knee Jerk. Normal Ankle Jerk . Vertebral body tenderness to palpation over Moran Test positive Lumbar Facet Loading Test positive Straight Leg Raise: positive at 30 degrees right side/ left side Gaenslen's Test positive Sacral spine : Severe tenderness over the Sacroiliac joint: right side / left side Range of motion: Flexion of the lumbar spine <60 degrees Range of motion: Extension of the lumbar spine <20 degrees Gaenslen's Test positive right side / left side Milly test: positive right side / left side Thigh Thrust Test positive right side / left side Sacral Thrust Test positive right side / left side Assessment and plan: Chronic LBP secondary to lumbar radiculopathy, spondylosis with facet arthropathy without myelopathy Chronic and current use of high-risk medication (Opioids). The patient was counseled about risk of opioid use, psychological risk associated with opioids and was orally counseled to not overuse , divert or sell medications. Pt is to store medication in a safe location. The patient is counseled against driving while using narcotic medications and also not to use alcohol or any illicit recreational drugs. Patient verbalized understanding that the lack of compliance will result in failure to renew narcotic prescription(s) as well as possible discharge from the clinic Diagnoses, prognosis and treatment options including but not limited to physical therapy, surgical interventions, interventional therapies and medication management including narcotics and adjuvant medication were discussed. All patient questions answered . UDS collected 07/21/24. MAPS reviewed and it was appropriate. Use, side effects, adverse reactions, safe storage discussed. Prescription refill for [place] 10/325mg #120 w 1 RF. I have spent less than 30 minutes on patient care today. Dr Madison was available by phone for the evaluation of this patient. The time was used to review the medical records including relevant urine studies and Prescription history (MAPs), review of the available imaging, evaluation and examination of the patient, coordination of care with the medical staff and if applicable referring physicians, as well as creation of the medical record PQRS Narrative: Smoking Status Former smoker Hx Alcohol Use (MH) No Home Medications: Ambulatory Orders Loratadine [Claritin] 10 mg PO DAILY 06/29/14 Pantoprazole Sodium 40 mg PO QAM 06/29/14 valACYclovir HCL [Valtrex] 500 mg PO QAM 06/29/14 Doxazosin Mesylate [Cardura] 4 mg PO QAM 03/08/17 Empagliflozin [Jardiance] 25 mg PO QAM 03/08/17 aMILoride-HCTZ 5-50 mg [Moduretic 5-50] 1 tab PO QAM 03/08/17 Evolocumab [Repatha Sureclick] 140 mg SQ Q14D 04/24/22 Insulin Glargine,Hum.rec.anlog [Lantus Solostar Pen] 52 units SQ QAM 04/24/22 Ascorbic Acid [Vitamin C chew] 500 mg PO QAM 07/06/23 Cholecalciferol [Vitamin D3 (10 Mcg = 400 Iu)] 10 mcg PO DAILY 07/06/23 Cyanocobalamin (Vitamin B-12) [Vitamin B-12] 1,000 mcg PO QAM 07/06/23 Multivitamin [Multivitamins Adult Gummies] 1 each PO QAM 07/06/23 Pioglitazone [Actos] 15 mg PO HS 07/06/23 Cephalexin [Keflex] 500 mg PO Q12HR 5 Days #10 cap 07/11/23 Ondansetron Odt [Zofran Odt] 4 mg PO Q8HR PRN #15 tab 04/16/24 HYDROcodone/APAP 10-325MG [[place] 10-325] 1 tab PO QID PRN 30 Days #120 tab 05/15/24 HYDROcodone/APAP 10-325MG [[place] 10-325] 1 tab PO QID PRN 30 Days #120 tab 05/15/24 Controlled Substance Measures - Controlled Substance Measures Is patient prescribed a controlled substance at discharge?: Yes When asked, does pt state using other controlled substances?: No If prescribed controlled substance>3 days was MAPS reviewed?: Yes
== END ==
LOC: PNWHC3 10:01
PROVIDERS: ATTEND Specialist
DX: Z76.0 Encounter for issue of repeat prescription (principal); M47.26 Other spondylosis with radiculopathy, lumbar region; Z86.59 Personal history of other mental and behavioral disorders; Z79.624 Long term (current) use of inhibitors of nucleotide synthesis; Z88.0 Allergy status to penicillin; Z88.8 Allergy status to other drugs, medicaments and biological substances; Z88.2 Allergy status to sulfonamides; Z88.6 Allergy status to analgesic agent; Z88.9 Allergy status to unspecified drugs, medicaments and biological substances; Z88.5 Allergy status to narcotic agent; Z87.891 Personal history of nicotine dependence
CPT/HCPCS: 80307; G0463; 99212

== ENCOUNTER 2024-08-15 23:37 | Emergency (ER) | payer MEDICARE, OTHER ==
[2024-08-15 23:43] VITALS: BP 125/77; PULSE 105; RESP 18; TEMP 97.8
--- NOTE | 2024-08-16 00:03 | ED ---
ENT HPI - General Chief complaint: Dental/Oral Stated complaint: Dental Pain, Swelling Time Seen by Provider: 08/16/24 00:03 Source: patient, family, RN notes reviewed Mode of arrival: ambulatory Limitations: no limitations - History of Present Illness Initial comments: 73-year-old male presented the ER for evaluation of dental pain. Patient reports on 08/13/24, he had a dentist appointment in consultation to have all of his teeth removed. He states since Sunday he has been having progressively worsening pain to his left lower jaw. He states today he noticed an increase in swelling to his left lower jaw and is concerned there may be a developing infection. He also reports pain is not controlled with prescribed Lamar tens. He is prescribed these for chronic pain. He also has tried salt water rinse and topical Orajel without relief. He denies any tongue or throat swelling. No difficulty breathing, wheezing or handling secretions. Patient denies any fevers or chills. No other complaints. - Related Data Home Medications Medication Instructions Recorded Confirmed Loratadine [Claritin] 10 mg PO DAILY 06/29/14 05/12/24 Pantoprazole Sodium 40 mg PO QAM 06/29/14 05/12/24 valACYclovir HCL [Valtrex] 500 mg PO QAM 06/29/14 05/12/24 Doxazosin Mesylate [Cardura] 4 mg PO QAM 03/08/17 05/12/24 Empagliflozin [Jardiance] 25 mg PO QAM 03/08/17 05/12/24 aMILoride-HCTZ 5-50 mg [Moduretic 1 tab PO QAM 03/08/17 05/12/24 5-50] Evolocumab [Repatha Sureclick] 140 mg SQ Q14D 04/24/22 05/12/24 Insulin Glargine,Hum.rec.anlog 52 units SQ QAM 04/24/22 05/12/24 [Lantus Solostar Pen] Ascorbic Acid [Vitamin C chew] 500 mg PO QAM 07/06/23 05/12/24 Cholecalciferol [Vitamin D3 (10 10 mcg PO DAILY 07/06/23 05/12/24 Mcg = 400 Iu)] Cyanocobalamin (Vitamin B-12) 1,000 mcg PO QAM 07/06/23 05/12/24 [Vitamin B-12] Multivitamin [Multivitamins Adult 1 each PO QAM 07/06/23 05/12/24 Gummies] Pioglitazone [Actos] 15 mg PO HS 07/06/23 05/12/24 Previous Rx's Medication Instructions Recorded Cephalexin [Keflex] 500 mg PO Q12HR 5 Days #10 cap 07/11/23 Ondansetron Odt [Zofran Odt] 4 mg PO Q8HR PRN #15 tab 04/16/24 HYDROcodone/APAP 10-325MG [[place]amar 1 tab PO QID PRN 30 Days #120 tab 07/21/24 10-325] HYDROcodone/APAP 10-325MG [[place] 1 tab PO QID PRN 30 Days #120 tab 07/21/24 10-325] Clindamycin [Cleocin] 450 mg PO Q8HR 7 Days #63 capsule 08/16/24 Allergies Allergy/AdvReac Type Severity Reaction Status Date / Time atorvastatin calcium Allergy Rash/Hives Verified 08/15/24 23:43 [From Lipitor] furosemide [From Lasix] Allergy Rash/Hives Verified 08/15/24 23:43 heparin Allergy Unknown Verified 08/15/24 23:43 ibuprofen Allergy Rash/Hives Verified 08/15/24 23:43 metformin Allergy Unknown Verified 08/15/24 23:43 metoprolol succinate Allergy Unknown Verified 08/15/24 23:43 [From Toprol XL] niacin Allergy Unknown Verified 08/15/24 23:43 Sulfa (Sulfonamide Allergy Rash/Hives Verified 08/15/24 23:43 Antibiotics) tirzepatide [From Mounjaro] Allergy Nausea & Verified 08/15/24 23:43 Vomiting & Diarrhea amoxicillin AdvReac Nausea & Verified 08/15/24 23:43 Vomiting & Diarrhea glyburide AdvReac Nausea & Verified 08/15/24 23:43 Vomiting Penicillins AdvReac Nausea & Verified 08/15/24 23:43 Vomiting & Diarrhea semaglutide [From Ozempic] AdvReac Nausea & Verified 08/15/24 23:43 Vomiting & Diarrhea Review of Systems ROS Statement: Those systems with pertinent positive or pertinent negative responses have been documented in the HPI. ROS Other: All systems not noted in ROS Statement are negative. Past Medical History Past Medical History: Cancer, CVA/TIA, Diabetes Mellitus, Hyperlipidemia, Hypertension, Myocardial Infarction ([place]), Prostate Disorder Additional Past Medical History / Comment(s): chronic left leg pain, prostate cancer Last Myocardial Infarction Date:: 12/2003 History of Any Multi-Drug Resistant Organisms: None Reported Past Surgical History: Appendectomy, Back Surgery, Cholecystectomy, Heart Catheterization With Stent, Orthopedic Surgery Additional Past Surgical History / Comment(s): finger, paritial right knee; 4 cardiac stents Date of Last Stent Placement:: 12/2003 Past Psychological History: No Psychological Hx Reported Smoking Status: Former smoker Past Alcohol Use History: None Reported Past Drug Use History: None Reported General Exam Limitations: no limitations General appearance: alert, in no apparent distress ENT exam: Present: normal oropharynx, mucous membranes moist, other (Overall po or dentition with numerous missing teeth, fractures and dental caries present. There is minimal edema to left lower jaw. There is no drainable abscess.) Neck exam: Present: normal inspection. Absent: tenderness, meningismus, lymphadenopathy Respiratory exam: Present: normal lung sounds bilaterally. Absent: respiratory distress, wheezes, rales, rhonchi, stridor Cardiovascular Exam: Present: regular rate, normal rhythm, normal heart sounds. Absent: systolic murmur, diastolic murmur, rubs, gallop, clicks Neurological exam: Present: alert, oriented X3, CN II-XII intact Skin exam: Present: warm, dry, intact, normal color. Absent: rash Course Vital Signs 08/15/24 23:40 Temperature 97.8 F Pulse Rate 105 H Respiratory 18 Rate Blood Pressure 125/77 O2 Sat by Pulse 97 Oximetry Medical Decision Making - Medical Decision Making Was pt. sent in by a medical professional or institution (, PA, UAT TESTER, urgent care, hospital, or senior care...) When possible be specific @ -No Did you speak to anyone other than the patient for history (EMS, parent, family, police, friend...)? What history was obtained from this source @ -Significant other, at bedside, aiding in HPI and PMHx. Did you review nursing and triage notes (agree or disagree)? Why? @ -I reviewed and agree with nursing and triage notes Were old charts reviewed (outside hosp., previous admission, EMS record, old EKG, old radiological studies, urgent care reports/EKG's, senior care records)? Report findings @ -No old charts were reviewed Differential Diagnosis (chest pain, altered mental status, abdominal pain women, abdominal pain men, vaginal bleeding, weakness, fever, dyspnea, syncope, headache, dizziness, GI bleed, back pain, seizure, CVA, palpatations, mental health, musculoskeletal)? @ -Dental caries, fractured tooth, dental abscess, Ricardo angina... This list is not meant to be all-inclusive EKG interpreted by me (3pts min.). @ -None done X-rays interpreted by me (1pt min.). @ -None done CT interpreted by me (1pt min.). @ -None done U/S interpreted by me (1pt. min.). @ -None done What testing was considered but not performed or refused? (CT, X-rays, U/S, labs)? Why? @ -None What meds were considered but not given or refused? Why? @ -Steroids considered to aid with pain, patient refused as he is diabetic. Dental block offered, patient refused Did you discuss the management of the patient with other professionals (professionals i.e. , PA, UAT TESTER, lab, RT, psych nurse, social contact worker, chief crna, teacher, investigation officer, case checker)? Give summary @ -No Was smoking cessation discussed for >3mins.? @ -No Was critical care preformed (if so, how long)? @ -No Were there social determinants of health that impacted care today? How? (Homelessness, low income, unemployed, alcoholism, drug addiction, transportation, low edu. Level, literacy, decrease access to med. care, senior living, rehab)? @ -No Was there de-escalation of care discussed even if they declined (Discuss DNR or withdrawal of care, Hospice)? DNR status @ -No What co-morbidities impacted this encounter? (DM, HTN, Smoking, COPD, CAD, Cancer, CVA, ARF, Chemo, Hep., AIDS, mental health diagnosis, sleep apnea, morbid obesity)? @ -None Was patient admitted / discharged? Hospital course, mention meds given and route, prescriptions, significant lab abnormalities, going to OR and other pert inent info. @ -Discharge. 73 year old male presenting to the ER for evaluation of dental pain. Vitals stable. Exam remarkable for overall poor dentition with numerous missing, fractured and dental caries noted. Mild edema noted to left lower jaw. No drainable abscess. No tongue, oropharynx or lip edema noted. No uvular deviation. Patient started on clindamycin as he has a penicillin allergy, first dose in the ER. For pain control patient received IM Dilaudid and Orajel. I advised him to continue taking Lamar 10s as prescribed with pain control. I also recommended OTC Tylenol. I advised he follow-up closely with dentist in the next 1 to 2 days for further evaluation and treatment, referrals given. Steroids were considered to aid with pain, patient refused as he is diabetic. Return parameters discussed. Patient discharged in stable condition with follow-up to dentist. Patient verbally expressed understanding and agreement with care plan. Case discussed with ED attending, Dr. Tyson. Undiagnosed new problem with uncertain prognosis? @ -No Drug Therapy requiring intensive monitoring for toxicity (Heparin, Nitro, Insulin, Cardizem)? @ -No Were any procedures done? @ -No Diagnosis/symptom? @ -Dental pain/fractured teeth/dental infection Acute, or Chronic, or Acute on Chronic? @ -Acute Uncomplicated (without systemic symptoms) or Complicated (systemic symptoms)? @ -Uncomplicated Side effects of treatment? @ -No Exacerbation, Progression, or Severe Exacerbation? @ -No Poses a threat to life or bodily function? How? (Chest pain, [place], [place], pneumonia, PE, COPD, DKA, ARF, appy, cholecystitis, CVA, Diverticulitis, Homicidal, Suicidal, threat to staff... and all critical care pts) @ -Low at this time Disposition Clinical Impression: Toothache, Dental caries, Fracture of tooth Disposition: HOME SELF-CARE Condition: Stable Instructions (If sedation given, give patient instructions): Toothache (ED) Additional Instructions: Continue taking Lamar 10 as prescribed. You may also take Tylenol for pain control. Use Orajel for pain control as well. Take clindamycin as prescribed. Follow-up with dentist in the next 1 to 2 days. Return to the ER for any new or worsening concerns Prescriptions: Clindamycin [Cleocin] 450 mg PO Q8HR 7 Days #63 capsule Is patient prescribed a controlled substance at d/c from ED?: No Referrals: Rodger August MD [Primary Care Provider] - 1-2 days Vishal Mcqueen DMD [STAFF PHYSICIAN] - 1-2 days Ashu Mandel DDS [STAFF PHYSICIAN] - 1-2 days Mabel Arriola DDS [STAFF PHYSICIAN] - 1-2 days Time of Disposition: 00:19
[2024-08-16] MEDS: HYDROmorphone 2 MG/ML 1 ML SYRINGE IM STA (00:09)
[2024-08-16] MEDS: CLINDAMYCIN 150 MG CAP PO STA (00:10)
[2024-08-16] MEDS: BENZOCAINE 20 % GEL 11.9 GM TUBE MM ONE (00:16)
== END 2024-08-16 00:22 | disposition home or self-care (01) ==
LOC: EC 23:37
DX: K02.9 Dental caries, unspecified (principal); K03.81 Cracked tooth; Z86.73 Personal history of transient ischemic attack (TIA), and cerebral infarction without residual deficits; Z87.891 Personal history of nicotine dependence; Z88.0 Allergy status to penicillin; Z88.1 Allergy status to other antibiotic agents; Z88.2 Allergy status to sulfonamides; Z88.8 Allergy status to other drugs, medicaments and biological substances
CPT/HCPCS: 99282; 96372; J1171

== ENCOUNTER → 2024-08-21 | Outpatient (CLI) | payer MEDICARE, OTHER | END | disposition home or self-care (01) | LOC: LABWHC1 16:05 | PROVIDERS: ATTEND Urology | DX: C61 Malignant neoplasm of prostate (principal) | CPT/HCPCS: 36415; 84153 ==

== ENCOUNTER → 2024-11-07 | Outpatient (CLI) | payer MEDICARE, OTHER ==
[2024-11-07 16:00] LABS: Anion Gap 13.70 mmol/L (4.00-12.00); BUN/Creat Ratio 16.25 Ratio (12.00-20.00); Blood Urea Nitrogen 13.0 mg/dL (9.0-27.0); Carbon Dioxide 23.3 mmol/L (21.6-31.8); Chloride 102 mmol/L (96-109); Cholesterol 104.00 mg/dL (0.00-200.00); Glucose 157 mg/dL (70-110); HDL Cholesterol 42.10 mg/dL (40.00-60.00); LDL Cholesterol,Calculated 18.9 mg/dL (0.0-131.0); Potassium 4.2 mmol/L (3.5-5.5); Sodium 139 mmol/L (135-145); Triglycerides 215.00 mg/dL (0.00-149.00); VLDL Calculation 43.00 mg/dL (5.00-40.00)
[2024-11-07 16:01] LABS: ALT 27 U/L (10-49); AST 22 U/L (14-35); Albumin 4.4 g/dL (3.8-4.9); Albumin/Globulin Ratio 2.59 Ratio (1.60-3.17); Alkaline Phosphatase 96 U/L (41-126); Calcium 9.1 mg/dL (8.7-10.3); Globulin 1.7 g/dL (1.6-3.3); T4, Free (Free Thyroxine) 1.25 ng/dL (0.80-1.80); Total Protein 6.1 g/dL (6.2-8.2)
== END | disposition home or self-care (01) ==
LOC: LABWHC1 10:13
PROVIDERS: ATTEND Registered Nurse General Practice
DX: E11.65 Type 2 diabetes mellitus with hyperglycemia (principal); E55.9 Vitamin D deficiency, unspecified; E78.00 Pure hypercholesterolemia, unspecified
CPT/HCPCS: 36415; 80053; 80061; 82043; 82306; 82570; 83519; 84439; 84443; 84480; 84681

== ENCOUNTER → 2024-11-17 | Outpatient (CLI) | payer MEDICARE, OTHER ==
[2024-11-17 10:30] VITALS: BP 160/75; PULSE 73; RESP 16; TEMP 97.2
--- NOTE | 2024-11-17 13:16 | P.PAINPG ---
Objective - Vital Signs Vital signs: Vital Signs Temp 97.2 F L 11/17/24 10:18 Pulse 73 11/17/24 10:18 Resp 16 11/17/24 10:18 BP 160/75 11/17/24 10:18 Pulse Ox 97 11/17/24 10:18 FiO2 Intake & Output 11/16/24 11/17/24 11/17/24 18:59 06:59 18:59 Weight 83.007 kg PQRS Measure Charge Sheet Mode of Arrival: Ambulatory Comment: A 73 yr old male with a history of severe and chronic LBP secondary to radicul opathy, spondylosis with facet arthropathy without myelopathy presents today for medication refills. Pain level is provoked at 8 /10 in intensity, constant, predominantly axial, localized in the lumbar spine, dull in character w occasional shooting towards the hips, LEs and feet. Pain is provoked by standing/ sitting for periods > 15 min. Pain is alleviated with Pt x 5 wks which he is currently in, medications, topical, manual massage, repositioning and rest. Oswestry axial pain score at 24. Interventional pain procedures completed include Patient is currently on [place] 10/325gm #120 Patient denies any side effects of the medication(s), denies excessive drowsiness or sleepiness, denies suicidal ideation and reports that the current pain medication is helping to control the pain and improve activities of daily living. Patient denies any motor or sensory deficits. Patient denies any fever or night sweats, denies any change in the bowel movements or urination. Physical Examination: -Constitutional: Cooperative. Not in acute distress . - Neurologic: Cranial nerve II to XII intact. No focal neurological deficits. - Psychatric: Alert & oriented x 3. Matching mood & appropriate affect. Judgment and insight intact. - Musculoskeletal: Cervical spine: Muscle bulk/ tone/ strength in the bilateral upper extremities normal Vertebral body tenderness to palpation over Spurling test positive Distraction test positive Facet loading test positive TTP Thoracic spine Muscle bulk / tone/ strength in the bilateral paraspinal muscles normal Vertebral body tender to palpation over Facet loading test positive TTP Lumbar spine: Motor bulk/ tone/ strength lower extremities , thigh and legs : 5/5 Deep tendon reflexes : Normal Knee Jerk. Normal Ankle Jerk . Vertebral body tenderness to palpation over Moran Test positive Lumbar Facet Loading Test positive Straight Leg Raise: positive at 30 degrees right side/ left side Gaenslen's Test positive Sacral spine : Severe tenderness over the Sacroiliac joint: right side / left side Range of motion: Flexion of the lumbar spine <60 degrees Range of motion: Extension of the lumbar spine <20 degrees Gaenslen's Test positive right side / left side Milly test: positive right side / left side Thigh Thrust Test positive right side / left side Sacral Thrust Test positive right side / left side Assessment and plan: Chronic LBP secondary to lumbar radiculopathy, spondylosis with facet arthropathy without myelopathy Chronic and current use of high-risk medication (Opioids). The patient was counseled about risk of opioid use, psychological risk associated with opioids and was orally counseled to not overuse , divert or sell medications. Pt is to store medication in a safe location. The patient is counseled against driving while using narcotic medications and also not to use alcohol or any illicit recreational drugs. Patient verbalized understanding that the lack of compliance will result in failure to renew narcotic prescription(s) as well as possible discharge from the clinic Diagnoses, prognosis and treatment options including but not limited to physical therapy, surgical interventions, interventional therapies and medication management including narcotics and adjuvant medication were discussed. All patient questions answered . UDS 07/21/24 reviewed and consistent. MAPS reviewed and it was appropriate. Use, side effects, adverse reactions, safe storage discussed. Prescription refill for [place] 10/325mg #120 w RF. I have spent less than 30 minutes on patient care today. Dr Madison was available by phone for the evaluation of this patient. The time was used to review the medical records including relevant urine studies and Prescription history (MAPs), review of the available imaging, evaluation and examination of the patient, coordination of care with the medical staff and if applicable referring physicians, as well as creation of the medical record - Pain Location Bilateral Lower Back Non-Pharmacological Interventions: Heat, Ice, Inactivity, Physical Therapy, Position/Reposition, Relaxation Technique, Sitting, Stretching Pharmacological Interventions: PRN Medication, Scheduled Medication, Topical Medication PQRS Narrative: Smoking Status Former smoker Blood Pressure 160/75 Pain Intensity [Bilateral 7 Lower Back] Scale Used Numeric (1 - 10) Hx Alcohol Use (MH) No Home Medications: Ambulatory Orders Loratadine [Claritin] 10 mg PO DAILY 06/29/14 Pantoprazole Sodium 40 mg PO QAM 06/29/14 valACYclovir HCL [Valtrex] 500 mg PO QAM 06/29/14 Doxazosin Mesylate [Cardura] 4 mg PO QAM 03/08/17 Empagliflozin [Jardiance] 25 mg PO QAM 03/08/17 aMILoride-HCTZ 5-50 mg [Moduretic 5-50] 1 tab PO QAM 03/08/17 Evolocumab [Repatha Sureclick] 140 mg SQ Q14D 04/24/22 Insulin Glargine,Hum.rec.anlog [Lantus Solostar Pen] 52 units SQ QAM 04/24/22 Ascorbic Acid [Vitamin C chew] 500 mg PO QAM 07/06/23 Cholecalciferol [Vitamin D3 (10 Mcg = 400 Iu)] 10 mcg PO DAILY 07/06/23 Cyanocobalamin (Vitamin B-12) [Vitamin B-12] 1,000 mcg PO QAM 07/06/23 Multivitamin [Multivitamins Adult Gummies] 1 each PO QAM 07/06/23 Pioglitazone [Actos] 15 mg PO HS 07/06/23 Cephalexin [Keflex] 500 mg PO Q12HR 5 Days #10 cap 07/11/23 Ondansetron Odt [Zofran Odt] 4 mg PO Q8HR PRN #15 tab 04/16/24 Clindamycin [Cleocin] 450 mg PO Q8HR 7 Days #63 capsule 08/16/24 HYDROcodone/APAP 10-325MG [[place] 10-325] 1 tab PO QID PRN 30 Days #120 tab 11/17/24 HYDROcodone/APAP 10-325MG [[place] 10-325] 1 tab PO QID PRN 30 Days #120 tab 11/17/24 Controlled Substance Measures - Controlled Substance Measures Is patient prescribed a controlled substance at discharge?: Yes When asked, does pt state using other controlled substances?: No If prescribed controlled substance>3 days was MAPS reviewed?: Yes
== END | disposition home or self-care (01) ==
LOC: PNWHC3 09:53
PROVIDERS: ATTEND Specialist
DX: M47.26 Other spondylosis with radiculopathy, lumbar region (principal); Z88.0 Allergy status to penicillin; Z88.2 Allergy status to sulfonamides; Z88.5 Allergy status to narcotic agent; Z88.8 Allergy status to other drugs, medicaments and biological substances; Z88.6 Allergy status to analgesic agent; Z87.891 Personal history of nicotine dependence
CPT/HCPCS: 99211